=== PATIENT | female | born 1980 | race Caucasian/White ===

== ENCOUNTER 2017-01-19 15:07 | Observation (INO) ==
--- NOTE | 2017-01-19 15:13 | Emergency Department Note ---
Disposition Clinical Impression: Asthma exacerbation Disposition: Admitted As Inpatient Condition: Good General Adult HPI - General Stated complaint: TOREY Asthma Time Seen by Provider: 01/19/17 15:12 - Related Data Home Medications Medication Instructions Recorded Confirmed Sertraline [Zoloft] 50 mg PO HS 01/28/16 01/19/17 Albuterol Sulfate [Proair Hfa] 2 puff IH Q4-6H PRN 05/23/16 01/19/17 ClonazePAM [Klonopin] 0.5 mg PO Q6H PRN 08/08/16 01/19/17 Tiotropium [Spiriva] 18 mcg IH DAILY 08/08/16 01/19/17 Budesonide/Formoterol 160/4.5 2 puff IH BID 01/19/17 01/19/17 [Symbicort 160/4.5] Ipratropium/Albuterol Neb [Duoneb] 3 ml IH Q6HR 01/19/17 01/19/17 Previous Rx's Medication Instructions Recorded PredniSONE 60 mg PO DAILY 5 Days 01/19/17 Allergies Allergy/AdvReac Type Severity Reaction Status Date / Time levofloxacin [From Levaquin] Allergy Anaphylaxis Verified 01/18/17 23:13 Penicillins [PCN] Allergy Anaphylaxis Verified 01/18/17 23:13 Past Medical History - Past Medical History Medical history: Reports: asthma, kidney stones Surgical history: Reports: , cholecystectomy Psychiatric history: Reports: anxiety, depression EXCEL ANALYST history: Reports: no EXCEL ANALYST history, bilateral tubal ligation - Social History Smoking Status: Current every day smoker Smokeless Tobacco Status: No Alcohol use: Reports: none Drug use: Reports: none Course Vital Signs Temperature 99.0 F 01/19/17 15:18 Pulse Rate 122 01/19/17 15:18 Respiratory Rate 24 01/19/17 15:18 Blood Pressure 145/124 01/19/17 15:18 O2 Sat by Pulse Oximetry 98 01/19/17 15:18 Temperature 98.1 F 01/19/17 20:03 Pulse Rate 114 01/19/17 20:03 Respiratory Rate 16 01/19/17 20:03 Blood Pressure 132/84 01/19/17 20:03 O2 Sat by Pulse Oximetry 96 01/19/17 20:03 Oxygen Delivery Oxygen Delivery Nasal Cannula Medical Decision Making - Lab Data Result diagrams: 01/19/17 15:59 01/19/17 15:59 Lab Results 01/19/17 01/19/17 Range/Units 15:59 15:59 WBC 17.3 H (4.3-11.1) K/mcL RBC 5.42 H (3.82-4.97) M/mcL Hgb 14.8 (11.5-15.4) g/dL Hct 43.9 (35.3-44.9) % MCV 81.0 L (83.0-100.0) fL MCH 27.3 L (28.0-33.3) pg MCHC 33.7 (31.6-35.5) g/dL RDW 12.8 (11.5-14.5) % Plt Count 318 (140-400) K/mcL MPV 9.1 L (9.4-12.4) fL Immature Gran % 1.0 (0-4) % Seg Neutrophils % 79.0 % Lymphocytes % 16.9 % Monocytes % 2.9 % Eosinophils % 0.0 % Basophils % 0.2 % Neutrophils # 13.7 H (1.6-8.9) K/mcL Lymphocytes # 2.9 (0.6-4.6) K/mcL Monocytes # 0.5 (0.0-1.3) K/mcL Eosinophils # 0.0 (0.0-0.6) K/mcL Basophils # 0.0 (0.0-0.2) K/mcL Sodium 139 (136-145) mEq/L Potassium 3.9 (3.5-4.5) mEq/L Chloride 106 (98-109) mEq/L Carbon Dioxide 22 (19-29) mEq/L BUN 15 (7-20) mg/dL Creatinine 0.86 (0.57-1.11) mg/dL Est GFR ( Amer) > 60 (> 60) Est GFR (Non-Af Amer) > 60 (> 60) BUN/Creatinine Ratio 17 (6-26) Glucose 202 H (70-99) mg/dL Calculated Osmolality 295 (280-300) Calcium 9.5 (8.6-10.8) mg/dL Attestation Statement - Attestation Attestation: I examined this patient and my medical decision-making was reviewed with the MERCERIZING RANGE CONTROLLER/PA/Advanced Practice Nurse/Resident Physician. I agree with the documented findings, disposition and treatment plan as described except to the extent set forth below. [id number] time provided Patient seen last night for similar symptoms. She states it is "my asthma." Patient presents dyspneic and wheezy. She was able to ambulate to the treatment area. Patient seen and evaluated in conjunction with the resident physician Dr. Hugo
[2017-01-19] MEDS ORDERED: Ipratropium/Albuterol Neb 3 ML ONE ×2 (15:14→15:18)
[2017-01-19] MEDS ORDERED: methylPREDNISolone 125 MG/2 ML VIAL IVP ONE (15:19)
[2017-01-19] MEDS ORDERED: Ipratropium/Albuterol Neb 3 ML IH SCH (15:30)
[2017-01-19 16:10] LABS: Basophils % 0.2 %; Hematocrit 43.9 % (35.3-44.9); Hemoglobin 14.8 g/dL (11.5-15.4); Lymphocytes # 2.9 K/mcL (0.6-4.6); Lymphocytes % 16.9 %; Mean Corpuscular HGB Conc 33.7 g/dL (31.6-35.5); Mean Corpuscular Hemoglobin 27.3 pg (28.0-33.3); Mean Platelet Volume 9.1 fL (9.4-12.4); Monocytes # 0.5 K/mcL (0.0-1.3); Monocytes % 2.9 %; Neutrophils # 13.7 K/mcL (1.6-8.9); Platelet Count 318 K/mcL (140-400); Red Blood Count 5.42 M/mcL (3.82-4.97); Red Cell Distribution Width 12.8 % (11.5-14.5)
[2017-01-19 16:35] LABS: BUN/Creatinine Ratio 17 (6-26); Blood Urea Nitrogen 15 mg/dL (7-20); Calcium 9.5 mg/dL (8.6-10.8); Carbon Dioxide 22 mEq/L (19-29); Chloride 106 mEq/L (98-109); Glucose 202 mg/dL (70-99); Osmolality,Calculated 295 (280-300); Potassium 3.9 mEq/L (3.5-4.5); Sodium 139 mEq/L (136-145); eGFR For African Americans > 60 (> 60); eGFR For Non-African Americans > 60 (> 60)
--- NOTE | 2017-01-19 17:14 | Emergency Department Note ---
Disposition Clinical Impression: Asthma exacerbation Disposition: Admitted As Inpatient Condition: Good Referrals: NO,PCP [Primary Care Provider] - Forms: ED Satisfaction Letter SOB HPI - General Chief Complaint: ED Shortness of Breath/Dyspnea Stated Complaint: TOREY Asthma Time Seen by Provider: 01/19/17 15:12 Source: patient Nursing Notes Reviewed: Yes Vital Signs Reviewed: Yes - History of Present Illness Patient is a bounce back from yesterday where she was treated for asthma exacerbation and discharged from the emergency department. Patient continues to have shortness of breath despite treatment. Patient is a severe asthmatic who uses albuterol, do nebs, Symbicort, Advair at home. Patient has been using albuterol every 4 hours. Patient is on daily steroids at 20 mg and has increase this to 60 mg several days ago. Patient continues to have minimal relief. Patient does continue to smoke. - Related Data Home Medications Medication Instructions Recorded Confirmed Sertraline [Zoloft] 50 mg PO HS 01/28/16 08/08/16 Albuterol Sulfate [Proair Hfa] 2 puff IH Q4-6H PRN 05/23/16 08/08/16 ClonazePAM [Klonopin] 0.5 mg PO Q6H 08/08/16 08/08/16 Tiotropium [Spiriva] 18 mcg IH 0700 08/08/16 08/08/16 Budesonide/Formoterol 160/4.5 2 puff IH BID 01/19/17 01/19/17 [Symbicort 160/4.5] Ipratropium/Albuterol Neb [Duoneb] 3 ml IH Q6HR 01/19/17 01/19/17 Previous Rx's Medication Instructions Recorded PredniSONE 60 mg PO DAILY 5 Days 01/19/17 Allergies Allergy/AdvReac Type Severity Reaction Status Date / Time levofloxacin [From Levaquin] Allergy Anaphylaxis Verified 01/18/17 23:13 Penicillins [PCN] Allergy Anaphylaxis Verified 01/18/17 23:13 All systems ED: reviewed and negative except as stated. Constitutional: Denies: fever, chills Cardiovascular: Reports: dyspnea on exertion. 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 Absent : tenderness - Respiratory Respiratory exam: Present: normal lung sounds bilaterally, respiratory distress , wheezes - Cardiovascular Cardiovascular exam: Present: regular rate, normal rhythm - Abdominal Exam Abdominal exam: Present: soft, Non-Tender - Extremities Exam Extremities exam: Present: normal inspection. Absent: tenderness - Back Exam Back exam: Present: normal inspection. Absent: tenderness - Neurological Exam Neurological exam: Present: alert, oriented X3, CN II-XII intact - Psychiatric Psychiatric exam: Present: normal affect, normal mood - Skin Skin exam: Present: warm Course - Consultations Consultation #1: Discussed with hospitalist Iam. Patient accepted for admission Vital Signs Temperature 99.0 F 01/19/17 15:18 Pulse Rate 122 01/19/17 15:18 Respiratory Rate 24 01/19/17 15:18 Blood Pressure 145/124 01/19/17 15:18 O2 Sat by Pulse Oximetry 98 01/19/17 15:18 Temperature 99.0 F 01/19/17 15:18 Pulse Rate 114 01/19/17 16:50 Respiratory Rate 26 01/19/17 15:50 Blood Pressure 130/66 01/19/17 16:50 O2 Sat by Pulse Oximetry 100 01/19/17 16:50 Oxygen Delivery Oxygen Delivery Room Air Shortness of Breath/Dyspnea - Medical Records Medical records reviewed: Yes I reviewed the patient's medical records. - Lab Data Lab results reviewed: Yes I reviewed the patient's lab results. Result diagrams: 01/19/17 15:59 01/19/17 15:59 Lab Results 01/19/17 01/19/17 Range/Units 15:59 15:59 WBC 17.3 H (4.3-11.1) K/mcL RBC 5.42 H (3.82-4.97) M/mcL Hgb 14.8 (11.5-15.4) g/dL Hct 43.9 (35.3-44.9) % MCV 81.0 L (83.0-100.0) fL MCH 27.3 L (28.0-33.3) pg MCHC 33.7 (31.6-35.5) g/dL RDW 12.8 (11.5-14.5) % Plt Count 318 (140-400) K/mcL MPV 9.1 L (9.4-12.4) fL Immature Gran % 1.0 (0-4) % Seg Neutrophils % 79.0 % Lymphocytes % 16.9 % Monocytes % 2.9 % Eosinophils % 0.0 % Basophils % 0.2 % Neutrophils # 13.7 H (1.6-8.9) K/mcL Lymphocytes # 2.9 (0.6-4.6) K/mcL Monocytes # 0.5 (0.0-1.3) K/mcL Eosinophils # 0.0 (0.0-0.6) K/mcL Basophils # 0.0 (0.0-0.2) K/mcL Sodium 139 (136-145) mEq/L Potassium 3.9 (3.5-4.5) mEq/L Chloride 106 (98-109) mEq/L Carbon Dioxide 22 (19-29) mEq/L BUN 15 (7-20) mg/dL Creatinine 0.86 (0.57-1.11) mg/dL Est GFR ( Amer) > 60 (> 60) Est GFR (Non-Af Amer) > 60 (> 60) BUN/Creatinine Ratio 17 (6-26) Glucose 202 H (70-99) mg/dL Calculated Osmolality 295 (280-300) Calcium 9.5 (8.6-10.8) mg/dL - Radiology Data Radiology results reviewed: Yes I reviewed the patient's radiology results. - EKG Data EKG attestation: Yes I reviewed and interpreted this EKG. EKG results narrative: Patient's EKG shows sinus tachycardia with a rate of 131. Patient has no significant ST elevations or depressions. QRS 89. QTC 400. No previous EKG present for comparison.
[2017-01-19] MEDS ORDERED: Furosemide 40 MG/4 ML VIAL IVP ONE (21:20)
[2017-01-19] MEDS ORDERED: Albuterol 2.5 MG/3 ML NEBULIZER IH PRN (21:22)
[2017-01-19] MEDS ORDERED: clonazePAM 0.5 MG TABLET PO PRN (21:23)
[2017-01-19] MEDS ORDERED: Acetaminophen 325 MG TABLET PO PRN (21:24)
[2017-01-19] MEDS ORDERED: Naloxone 0.4 MG/ML INJ IVP PRN (21:24)
[2017-01-19] MEDS ORDERED: Ondansetron 4 MG/2 ML VIAL IVP PRN (21:24)
--- NOTE | 2017-01-19 21:42 | Internal Med History&Physical ---
Date of Encounter: 01/19/17 Time of Encounter: 20:00 Internal Medicine - H&P: HPI Chief complaint: SOB, x 2 -3 days Admitted From: Emergency Dept Plans for Post Hospital Care: Home History of present illness: Ms. Sweet is a 36 year old female with medical history significant for asthma ( probably COPD, on-going), and morbid obesity present with 2-3 days of progressive shortness of breath, dry cough. She was evaluated in the ER yesterday and discharged home after rounds of bronchodilator treatment and IV solumedrol. She prescribed zithromax and a course of prednisone. Symptoms have not improved. No fever, no rhinorrhea, no chest pain, no sick contacts, no recent travel. No hospitalization for asthma related condition this year. Though her asthma appears mild persistent, she is rarely hospitalized for asthma. No history of endotracheal intubation related to asthma. 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 She reports compliance with her chronic maintenance medications for asthma. She is FULL CODE as per discussion and nominates her mother, Day Clemons ) as her NOK/POA. ROS: A 10-point ROS was performed, positives and relevant negatives are detailed , system-symptom not mentioned are assumed negative unless otherwise stated. PMH: asthma (probably COPD, on-going), and morbid obesity, PSurgical history: Cholecytectomy and cesarian section, bilateral tubal ligation Psychiatry hx: anxiety depression Family History: Father-scleroderma, mother: anxiety, depression Vital Signs Temperature 99.0 F 01/19/17 15:18 Pulse Rate 122 01/19/17 15:18 Respiratory Rate 24 01/19/17 15:18 Blood Pressure 145/124 01/19/17 15:18 O2 Sat by Pulse Oximetry 98 01/19/17 15:18 Temperature 99.0 F 01/19/17 15:18 Pulse Rate 114 01/19/17 16:50 Respiratory Rate 26 01/19/17 15:50 Blood Pressure 130/66 01/19/17 16:50 O2 Sat by Pulse Oximetry 100 01/19/17 16:50 Not in distress Not pale, anicteric afebrile, acyanotic, Speaks in complete senstence, no subcutaneous ephysema Chest: widespread expiratory wheezing, fine bibasilar crackles Heart: Tachycardia, RR, HS1/2 no m/r/g. Abdomen: soft, non-tender, no masses. : No flank tenderness, no CVA TENDER, NO SUPRAPUBIC TENDERNESS. SUBMARINE ADVISORY TEAM WATCH OFFICER: AAO x 3, no gross focal neurological deficits Skin: no active skin lesion Extremities: non-pitting but tense bilaterally, no calf tenderness, normal pedal pulses Lab Results 01/19/17 01/19/17 Range/Units 15:59 15:59 WBC 17.3 H (4.3-11.1) K/mcL RBC 5.42 H (3.82-4.97) M/mcL Hgb 14.8 (11.5-15.4) g/dL Hct 43.9 (35.3-44.9) % MCV 81.0 L (83.0-100.0) fL MCH 27.3 L (28.0-33.3) pg MCHC 33.7 (31.6-35.5) g/dL RDW 12.8 (11.5-14.5) % Plt Count 318 (140-400) K/mcL MPV 9.1 L (9.4-12.4) fL Immature Gran % 1.0 (0-4) % Seg Neutrophils % 79.0 % Lymphocytes % 16.9 % Monocytes % 2.9 % Eosinophils % 0.0 % Basophils % 0.2 % Neutrophils # 13.7 H (1.6-8.9) K/mcL Lymphocytes # 2.9 (0.6-4.6) K/mcL Monocytes # 0.5 (0.0-1.3) K/mcL Eosinophils # 0.0 (0.0-0.6) K/mcL Basophils # 0.0 (0.0-0.2) K/mcL Sodium 139 (136-145) mEq/L Potassium 3.9 (3.5-4.5) mEq/L Chloride 106 (98-109) mEq/L Carbon Dioxide 22 (19-29) mEq/L BUN 15 (7-20) mg/dL Creatinine 0.86 (0.57-1.11) mg/dL Est GFR ( Amer) > 60 (> 60) Est GFR (Non-Af Amer) > 60 (> 60) BUN/Creatinine Ratio 17 (6-26) Glucose 202 H (70-99) mg/dL Calculated Osmolality 295 (280-300) Calcium 9.5 (8.6-10.8) mg/dL CXR: increased interstitial prominence consistent with mild pulmonary edema, borderline cardiomegaly. IMP Acute asthma (failed outpatient treatment) vs. COPD exacerbation vs. acute diastolic heart failure Chronic morbidities Anxiety Depression Obesity Tobacco abuse PLAN Admit Treat in the lines of the above potential diagnoses with bronchodilator, systemic corticosteroid, IV diuresis Obtain 2D ECHO Cycle troponins, check BMP, obtain EKG. Oxygen supplementation Continue medication of chronic morbidities GI/DVT prophylaxis. Smoking cessation discussed. She is now down to 4 cigarette per day, hasn't smoked in 2 days and does not have to urge to smoke now. I will hold nicotine replacement for now. I discussed my assessment with the patient, she verbalized understanding and is agreeable to admission. Admission is necessitated having failed out-patient treatment trial. Past Med Surg Social Fam HX - Past Medical History Medical history: asthma, kidney stones Psychiatric history: anxiety, depression - Past Surgical History Surgical History: , cholecystectomy - Social History Smoking Status: Current every day smoker Smokeless Tobacco Status: No Alcohol use: none Drug use: none - Family History Father Living Status: Age at : 58 Hx Family Cardiac Disorders: Yes Hx Family Respiratory Disorders: No Hx Family Cancer: Yes (bone and breast) Hx Family GI Disorders: Yes Hx Family Genitourinary Disorders: Yes Hx Family Endocrine Disorder: No Hx Family Musculoskeletal Disorders: No Hx Family Neuromuscular Disorders: No Hx Family Neurologic Disorders: No Hx Family HEENT Disorders: No Hx Family Autoimmune Disorders: No Hx Family Reproductive Disorders: No Hx Family Psychosocial Disorders: No Hx Family Medical Disorders: No Internal Medicine - H&P: Meds Sertraline [Zoloft] 50 mg PO HS 01/28/16 [History] Albuterol Sulfate [Proair Hfa] 2 puff IH Q4-6H PRN 05/23/16 [History] ClonazePAM [Klonopin] 0.5 mg PO Q6H PRN 08/08/16 [History] Tiotropium [Spiriva] 18 mcg IH DAILY 08/08/16 [History] Budesonide/Formoterol 160/4.5 [Symbicort 160/4.5] 2 puff IH BID 01/19/17 [ History] Ipratropium/Albuterol Neb [Duoneb] 3 ml IH Q6HR 01/19/17 [History] PredniSONE 60 mg PO DAILY 5 Days 01/19/17 [Rx] Allergies levofloxacin [From Levaquin] Allergy (Verified 01/18/17 23:13) Anaphylaxis Penicillins [PCN] Allergy (Verified 01/18/17 23:13) Anaphylaxis All Systems PM: A 10-system review of systems was performed and is negative for pertinent findings except as documented above in the HPI. - Constitutional Vitals: Temp Pulse Resp BP Pulse Ox 98.1 F 114 16 132/84 96 01/19/17 20:03 01/19/17 20:03 01/19/17 20:03 01/19/17 20:03 01/19/17 20:03 Internal Med - H&P Results - Labs CBC & Chem 7: 01/19/17 15:59 01/19/17 15:59
[2017-01-19] MEDS: Ipratropium/Albuterol Neb 3 ML IH SCH (22:46)
[2017-01-20] MEDS: methylPREDNISolone 125 MG/2 ML VIAL IVP SCH ×2 (00:21→09:10)
[2017-01-20] MEDS: Ipratropium/Albuterol Neb 3 ML IH SCH ×2 (03:47→11:01)
[2017-01-20 05:48] LABS: Alanine Aminotransferase 20 Units/L (0-55); Albumin 3.2 g/dL (3.5-5.0); Albumin/Globulin Ratio 0.8 (1.1-2.2); Alkaline Phosphatase 82 Units/L (38-126); Aspartate Amino Transferase 13 Units/L (5-34); BUN/Creatinine Ratio 21 (6-26); Bilirubin,Total 0.3 mg/dL (0.2-1.2); Blood Urea Nitrogen 20 mg/dL (7-20); Calcium 9.5 mg/dL (8.6-10.8); Carbon Dioxide 23 mEq/L (19-29); Chloride 103 mEq/L (98-109); Globulin 3.9 g/dL (2.4-3.5); Glucose 248 mg/dL (70-99); Osmolality,Calculated 291 (280-300); Potassium 3.8 mEq/L (3.5-4.5); Sodium 135 mEq/L (136-145); Total Protein 7.1 g/dL (6.0-8.3); eGFR For African Americans > 60 (> 60); eGFR For Non-African Americans > 60 (> 60)
[2017-01-20] MEDS ORDERED: Furosemide 20 MG TABLET PO SCH (06:00)
[2017-01-20] MEDS ORDERED: *HR* Enoxaparin 40 MG/0.4 ML SYRINGE SQ SCH (06:00)
[2017-01-20] MEDS ORDERED: Budesonide/Formoterol 160/4.5 MDI IH SCH (10:00)
[2017-01-20 11:13] VITALS: BP 143/88
--- NOTE | 2017-01-20 13:05 | Discharge Summary ---
Date of Encounter: 01/20/17 Time of Encounter: 12:30 - Discharge Medications Prescriptions: Furosemide Oral Soln [Lasix] 40 mg PO DAILY 30 Days Potassium Chloride 20 meq PO DAILY 30 Days Home Medications: Sertraline [Zoloft] 50 mg PO HS 01/28/16 [History] Albuterol Sulfate [Proair Hfa] 2 puff IH Q4-6H PRN 05/23/16 [History] ClonazePAM [Klonopin] 0.5 mg PO Q6H PRN 08/08/16 [History] Tiotropium [Spiriva] 18 mcg IH DAILY 08/08/16 [History] Budesonide/Formoterol 160/4.5 [Symbicort 160/4.5] 2 puff IH BID 01/19/17 [ History] Ipratropium/Albuterol Neb [Duoneb] 3 ml IH Q6HR 01/19/17 [History] PredniSONE 60 mg PO DAILY 5 Days 01/19/17 [Rx] Furosemide Oral Soln [Lasix] 40 mg PO DAILY 30 Days 01/20/17 [Rx] Potassium Chloride 20 meq PO DAILY 30 Days 01/20/17 [Rx] Allergies/Adverse Reactions: Allergies levofloxacin [From Levaquin] Allergy (Verified 01/18/17 23:13) Anaphylaxis Penicillins [PCN] Allergy (Verified 01/18/17 23:13) Anaphylaxis Procedures/tests Complete & Pending: Procedures Performed prior 72 hours Category Date Time Status NM pul vent and perfuse [NM] Routine Exams 01/19/17 23:07 Completed Date of admission: 01/19/17 21:34 Primary care physician: PCP NO - Patient Status Disposition: Home, Self-Care Condition: Good Overall status at discharge: patient is progressing back to baseline - Ambulatory Orders Ambulatory Orders: EV echocardiogram Time Frame: 1 Week, Facility: [facility], Location: Cardiopulmonary Svc - Discharge Instructions Follow Up With: NO,PCP [Primary Care Provider] - Forms: ED Satisfaction Letter Additional Instructions: F/u up at heart failure clinic. - Diet and Activity Activity: increase activity as tolerated, resume usual activities as tolerated Diet: low fat, low cholesterol, low salt diet Hospital course: Ms. Sweet is a 36 year old female - Time Spent with Patient Total time spent providing and/or coordinating discharge services: - Constitutional Vitals: Temp Pulse Resp BP Pulse Ox 98.0 F 95 18 143/88 94 L 01/20/17 11:12 01/20/17 11:12 01/20/17 11:12 01/20/17 11:12 01/20/17 11:12
[2017-01-20] MEDS ORDERED: Perflutren Lipid Microsphere 1.3 ML in 0.9 % Sodium Chloride 8.7 ML IVP ONE (14:22)
--- NOTE | 2017-01-20 15:05 | ECHO - Doppler Report ---
Echo with Imaging Enhancement Agent Name: Valerie Sweet Date of Study: 01/20/2017 Date: 1980 Ht: 65.0 in Medical Record#: [id number] Age: 36 Wt: 332.0 lb Gender: Female BSA: 2.45 Order #: [id number] Location: [facility] Room #: 3A48 Reading Physician: Carlos Alberto Mayers DO, MARYANA, SUYAPA KELLOGG Supervisor Paint Department: Aurora Campos Ordering Physician: Tony Macias MD Primary Physician: None Indications: Shortness of breath Impressions: Technically sub-optimal due to body habitus. LVEF 65-70%. Normal LV chamber sizes and function. Mild concentric left ventricular hypertrophy. Mild left ventricular diastolic dysfunction. Right ventricle was not well visualized. Grossly, it demonstrates normal function. No evidence of pulmonary hypertension identified. RVSP was not well obtained. No obvious significant valvular dysfunction. Left Ventricular Wall Motion: Rest Echo Findings All wall segments showed normal motion. Findings: Study Quality * Technically sub-optimal due to body habitus. ECG Findings * Normal sinus rhythm. Left Ventricle * LVEF 65-70%. * Normal LV chamber sizes and function. * Mild concentric left ventricular hypertrophy. * Mild left ventricular diastolic dysfunction. Right Ventricle * Right ventricle was not well visualized. Grossly, it demonstrates normal function. Left Atrium * Mildly dilated left atrium. Right Atrium * Mildly dilated right atrium. Interatrial Septum * Interatrial septum not well evaluated. Aortic Valve * Aortic valve not well visualized. * No aortic stenosis. * No aortic regurgitation. Mitral Valve * Normal mitral valve structure and function. * No mitral regurgitation. * No mitral stenosis. Tricuspid Valve * Normal tricuspid valve structure and function. * Trace tricuspid regurgitation. * No evidence of pulmonary hypertension identified. RVSP was not well obtained. Pulmonic Valve * Pulmonic valve not well visualized. * No pulmonic regurgitation. Aorta * Normally sized aortic root. Pericardium * The pericardium appears normal. IVC * The IVC is not well evaluated. Pulmonary Artery * Pulmonary artery not well visualized. History History of Smoking Years 3 Packs 0.5 Family History of CAD Measurements: BP: 148/ 88 2D Normal Values RVIDd: 3.00 cm <2.7 cm IVSd: 1.30 cm 0.6 - 1.0 cm LVIDd: 4.20 cm 3.7 - 5.6 cm LVPWd: 1.30 cm 0.6 - 1.1 cm LVIDs: 3.00 cm 1.5 - 3.6 cm AO: 2.80 cm < 4.0 cm LA: 3.90 cm 2.0 - 4.0cm %FS: 28.60 cm >25 % LA volume: 35 Mitral Valve Peak E:1.30 m/sec Peak A:1.35 m/sec E/A Ratio:1 Peak E' Lat Charlie:4.78 cm/s Peak E' Med Charlie:7.02 cm/s E/E' Lat Ratio:27.2 E/E' Med Ratio:18.5 Tricuspid Valve TV Regurg Peak Grad: 14.00mmHg TV Regurg Peak Charlie: 1.87m/sec Updated by Carlos Alberto Mayers DO, FACTegan, BESS, SUYAPA on 01/20/2017 3:02:06 PM electronically signed on 01/20/2017 3:02:39 PM with status of Final Wall Motion Juárez: 1=Normal, 2=Hypokinesis, 3=Akinesis, 4=Dyskinesis, 5=Aneurysmal, 6=Hyperkinetic, X=Not Visualized (Blank)=Missing
--- NOTE | 2017-01-20 15:35 | Electrocardiograph Report ---
[address] [address] Test Date: 2017-01-19 Pat Name: Valerie Sweet Department: 103 Room: 3A48 Gender: F Rn Practitioner: : 1980 Requested By: Pedrito Hugo Order Number: [id number] Reading MD: Vinod Pierson MD Measurements Intervals [place] Rate: 131 P: 58 CT: 139 QRS: 73 QRSD: 89 T: 39 QT: 323 QTc: 400 Interpretive Statements SINUS TACHYCARDIA Electronically Signed On 01-20-2017 15:34:18 EDT by Vinod Pierson MD
== END 2017-01-20 15:07 | disposition home or self-care (01) ==
LOC: 3ANU 15:07 → EMEROO 15:07 → 3ANU 18:20
PROVIDERS: ADMIT Nurse Practitioner Acute Care; ATTEND Family Medicine

== ENCOUNTER 2017-08-14 09:18 | Inpatient (IN) ==
[2017-08-14] MEDS ORDERED: Ipratropium/Albuterol Neb 3 ML IH ONE (09:41)
[2017-08-14] MEDS ORDERED: methylPREDNISolone 125 MG/2 ML VIAL IVP ONE (09:41)
--- NOTE | 2017-08-14 09:50 | Emergency Department Note ---
Disposition Clinical Impression: Asthma exacerbation Qualifiers: Asthma severity: unspecified severity Asthma persistence: unspecified Qualified Code(s): J45.901 - Unspecified asthma with (acute) exacerbation Disposition: Admitted As Inpatient Condition: Good SOB HPI - General Chief Complaint: ED Shortness of Breath/Dyspnea Stated Complaint: asthma attack Time Seen by Provider: 08/14/17 09:40 Source: patient Mode of arrival: private vehicle Limitations: no limitations Nursing Notes Reviewed: Yes Vital Signs Reviewed: Yes - History of Present Illness 37-year-old female history of asthma who presents to the ER with a chief complaint of shortness of breath and cough. Patient states that she was seen here a few days ago and was placed on steroids. Reports that she has been using her nebulizer treatment at home. States that she has continued to have a cough and felt short of breath despite taking the steroids. She reports prior hospitalizations for her asthma. No history of intubation. She does not wear oxygen at home. Denies a history of CAD, DVT or PE. States that she used a nebulizer treatment prior to arrival without relief. Currently denies fevers, chest pain, nausea, vomiting, diarrhea, sore throat, runny nose. No other complaints. Pt Subjective Complaint: shortness of breath, cough Onset (ago): day(s) Context: recent illness Severity: moderate Consistency/Duration: constant Improves with: nothing Worsens with: nothing Known history of: asthma Associated symptoms: Reports: cough, wheezing. Denies: chest pain, fever, sputum production Treatment prior to arrival: bronchodilator Cough present: Yes Cough Description: Involuntary Cough Frequency: Intermittent Sputum production: No Sputum Amount: None - Related Data Home oxygen amount: none Home Medications Medication Instructions Recorded Confirmed Sertraline [Zoloft] 50 mg PO HS 01/28/16 08/14/17 Albuterol Sulfate [Proair Hfa] 2 puff IH Q4-6H PRN 05/23/16 08/14/17 Tiotropium [Spiriva] 18 mcg IH DAILY 08/08/16 08/14/17 clonazePAM [Klonopin] 0.5 mg PO TID 08/08/16 08/14/17 Albuterol Neb [Proventil Neb] 2.5 mg IH TID 08/14/17 08/14/17 Furosemide [Lasix] 40 mg PO DAILY 08/14/17 08/14/17 Ipratropium Neb [Atrovent Neb] 0.5 mg IH QID PRN 08/14/17 08/14/17 Mometasone/Formoterol [Dulera 200 2 puff IH BID 08/14/17 08/14/17 Mcg/5 Mcg Inhaler] Montelukast [Singulair] 10 mg PO QPM 08/14/17 08/14/17 Previous Rx's Medication Instructions Recorded Potassium Chloride 20 meq PO DAILY 30 Days tab.er.prt 01/20/17 Allergies Allergy/AdvReac Type Severity Reaction Status Date / Time levofloxacin [From Levaquin] Allergy Anaphylaxis Verified 08/14/17 09:20 Penicillins [PCN] Allergy Anaphylaxis Verified 08/14/17 09:20 All systems ED: reviewed and negative except as stated. Constitutional: Denies: fever, chills Cardiovascular: Denies: chest pain Respiratory: Reports: cough, dyspnea, wheezes Gastrointestinal: Denies: abdominal pain, nausea, vomiting, diarrhea Past Medical History - Past Medical History Attestation: Yes The following information was validated with the patient. Source: patient Medical history: Reports: asthma, kidney stones Surgical history: Reports: , cholecystectomy Psychiatric history: Reports: anxiety, depression TRIMMING CASER history: Reports: no TRIMMING CASER history, bilateral tubal ligation - Social History Smoking Status: Current every day smoker Smokeless Tobacco Status: No Alcohol use: Reports: none Drug use: Reports: none Physical Exam - General Limitations: no limitations General appearance: alert, anxious - Head Head exam: atraumatic, normocephalic, normal inspection - Eye Eye exam: Present: normal appearance, EOMI - ENT ENT exam: normal exam - Neck Neck exam: Present: normal inspection, full ROM - Chest Chest inspection: Present: normal inspection, symmetric chest wall rise - Respiratory Respiratory exam: Present: wheezes, accessory muscle use, prolonged expiratory phase. Absent: stridor - Cardiovascular Cardiovascular exam: Present: normal rhythm, tachycardia, normal heart sounds - Abdominal Exam Abdominal exam: Present: soft, Non-Tender. Absent: tenderness, distention, rigidity - Extremities Exam Extremities exam: Present: normal inspection, full ROM - Expanded Upper Extremity Exam Shoulder exam: Present: normal inspection, full ROM Arm exam: Present: normal inspection, full ROM Elbow exam: Present: normal inspection, full ROM Forearm/Wrist exam: Present: normal inspection, full ROM Hand exam: Present: normal inspection, full ROM Vascular exam: Normal: radial pulse - Expanded Lower Extremity Exam Hip/Pelvis exam: Present: normal inspection, full ROM Upper leg exam: Present: normal inspection, full ROM Knee exam: Present: normal inspection, full ROM Lower leg exam: Present: normal inspection, full ROM Ankle exam: Present: normal inspection, full ROM Foot/toe exam: Present: normal inspection, full ROM Neurovascular/Tendon exam: Absent: motor deficit, sensory deficit - Neurological Exam Neurological exam: Present: alert, other (GCS 15. Nonfocal neurologic exam. Moves all extremities equally.) - Psychiatric Psychiatric exam: Present: normal affect, normal mood - Skin Skin exam: Present: warm, dry, intact, normal color Course Course Narrative: Patient seen and examined. She is not hypoxic here however she is somewhat conversationally dyspneic. We will obtain an EKG, chest x-ray as well as labs. We will give her a triple DuoNeb treatment and IV Solu-Medrol and reassess. - Reevaluation(s) Reevaluation #1: Patient continues to have wheezing and is in the low 90s after DuoNeb treatment. We will order a round of albuterol and IV magnesium. Patient agrees with thing in the hospital. Vital Signs Temperature 98.0 F 08/14/17 09:22 Pulse Rate 118 08/14/17 09:22 Respiratory Rate 36 08/14/17 09:22 Blood Pressure 148/78 08/14/17 09:22 O2 Sat by Pulse Oximetry 90 08/14/17 09:22 Temperature 98.0 F 08/14/17 09:22 Pulse Rate 94 08/14/17 12:00 Respiratory Rate 16 08/14/17 12:02 Blood Pressure 129/79 08/14/17 12:00 O2 Sat by Pulse Oximetry 92 08/14/17 12:02 Oxygen Delivery Oxygen Delivery Aerosol Mask Shortness of Breath/Dyspnea - MDM Narrative Medical decision making narrative: 37-year-old female presents to the ER due to shortness of breath and cough. History of asthma with recent visit for same. She spelled outpatient therapy with prednisone. Her sats were in the low 90s here. She has persistence of wheezing despite multiple DuoNeb treatments and albuterol. Chest x-ray demonstrates no acute findings. EKG is sinus tachycardia. White count slightly elevated at 13 likely secondary to stress response and steroids. Patient given IV magnesium for exacerbation and admitted to the hospitalist service. - Differential Diagnosis Likely: pneumonia, asthma with exacerbation - Lab Data Lab results reviewed: Yes I reviewed the patient's lab results. Result diagrams: 08/14/17 09:48 08/14/17 09:48 Lab Results 08/14/17 08/14/17 08/14/17 Range/Units 09:48 09:48 09:48 WBC 13.2 H (4.3-11.1) K/mcL RBC 5.48 H (3.82-4.97) M/mcL Hgb 15.2 (11.5-15.4) g/dL Hct 44.6 (35.3-44.9) % MCV 81.4 L (83.0-100.0) fL MCH 27.7 L (28.0-33.3) pg MCHC 34.1 (31.6-35.5) g/dL RDW 13.1 (11.5-14.5) % Plt Count 310 (140-400) K/mcL MPV 9.5 (9.4-12.4) fL Immature Gran % 1.2 (0-4) % Seg Neutrophils % 66.6 % Lymphocytes % 24.8 % Monocytes % 4.6 % Eosinophils % 2.2 % Basophils % 0.6 % Neutrophils # 8.8 (1.6-8.9) K/mcL Lymphocytes # 3.3 (0.6-4.6) K/mcL Monocytes # 0.6 (0.0-1.3) K/mcL Eosinophils # 0.3 (0.0-0.6) K/mcL Basophils # 0.1 (0.0-0.2) K/mcL Immature Plt Fraction 1.6 (1.1-6.1) % Sodium 137 (136-145) mEq/L Potassium 4.3 (3.5-4.5) mEq/L Chloride 110 H (98-109) mEq/L Carbon Dioxide 18 L (19-29) mEq/L BUN 17 (7-20) mg/dL Creatinine 0.81 (0.57-1.11) mg/dL Est GFR ( Amer) > 60 (> 60) Est GFR (Non-Af Amer) > 60 (> 60) BUN/Creatinine Ratio 21 (6-26) Glucose 119 H (70-99) mg/dL Calculated Osmolality 287 (280-300) Calcium 9.0 (8.6-10.8) mg/dL Troponin I 0.00 (0-0.03) ng/mL B-Natriuretic Peptide (0-100) pg/mL 08/14/17 Range/Units 09:48 WBC (4.3-11.1) K/mcL RBC (3.82-4.97) M/mcL Hgb (11.5-15.4) g/dL Hct (35.3-44.9) % MCV (83.0-100.0) fL MCH (28.0-33.3) pg MCHC (31.6-35.5) g/dL RDW (11.5-14.5) % Plt Count (140-400) K/mcL MPV (9.4-12.4) fL Immature Gran % (0-4) % Seg Neutrophils % % Lymphocytes % % Monocytes % % Eosinophils % % Basophils % % Neutrophils # (1.6-8.9) K/mcL Lymphocytes # (0.6-4.6) K/mcL Monocytes # (0.0-1.3) K/mcL Eosinophils # (0.0-0.6) K/mcL Basophils # (0.0-0.2) K/mcL Immature Plt Fraction (1.1-6.1) % Sodium (136-145) mEq/L Potassium (3.5-4.5) mEq/L Chloride (98-109) mEq/L Carbon Dioxide (19-29) mEq/L BUN (7-20) mg/dL Creatinine (0.57-1.11) mg/dL Est GFR ( Amer) (> 60) Est GFR (Non-Af Amer) (> 60) BUN/Creatinine Ratio (6-26) Glucose (70-99) mg/dL Calculated Osmolality (280-300) Calcium (8.6-10.8) mg/dL Troponin I (0-0.03) ng/mL B-Natriuretic Peptide < 10 (0-100) pg/mL - Radiology Data Radiology results reviewed: Yes I reviewed the patient's radiology results. Chest X-Ray 08/14/17 09:41 IMPRESSION: No acute cardiopulmonary process. D/ / Kassie Ellis MD / Kassie Ellis MD Interpreting Provider: Kassie Ellis MD - EKG Data EKG attestation: Yes I reviewed and interpreted this EKG. EKG results narrative: EKG demonstrates sinus tachycardia with a rate of 107. Normal axis. Normal intervals. Normal R-wave progression. No gross ST elevations or depressions. No acute ischemic findings. S.Rex - Tj Situation: Demographics, MOA Background: Presenting Complaint, Relevant PMH, Meds, & Allergies Assessment: Vital Signs, Course and respsone to treatment, Exam Concerns, Patient/Family Expectation, Pertinant Lab Results, Outstanding Labs Recommendation: Barrier(s) to disposition, Recommendation based on pending studies, treatments, or consults SRalph Report Given to: Dr. Hany Spencer Repor Time: 12:54 Attestation Statement - Attestation Attestation: I examined this patient and my medical decision-making was reviewed with the Resident Physician, Dr. Chung. I agree with the documented findings, disposition and treatment plan as described except to the extent set forth below. Patient is a 37-year-old white female who presents to the emergency department with worsening shortness of breath and wheezing with a history of asthma. Patient has been hospitalized in the past but no prior intubations. Patient states she was seen here a few days ago with an asthma exacerbation and improved after aerosols and steroids and was sent home on steroids to continue. Patient has been using her nebulizer at home and continuing steroids but having no improvement. Patient feels her breathing is worse in the last 24-48 hours and came in for evaluation. Patient was having conversational dyspnea increased work of breathing and audible wheezing at bedside. Patient was tachycardic and hypoxic on room air on my assessment. I agree with patient's physical findings as documented. Patient had an IV saline well-established placed on special machine operator and continuous pulse ox. Patient given steroids and breathing treatments on arrival with no improvement. Chest x-ray is unremarkable labs show mild elevation in white count likely due to stress response. He should with sinus tachycardia on EKG with no acute ST or T-wave changes. At this time due to no improvement clinically and hypoxia we will admit the patient for an exacerbation of her asthma. Case was discussed with the hospitalist to agree with admission. Patient was given additional DuoNeb and IV magnesium here in the emergency department.
[2017-08-14 10:11] LABS: BUN/Creatinine Ratio 21 (6-26); Blood Urea Nitrogen 17 mg/dL (7-20); Carbon Dioxide 18 mEq/L (19-29); Chloride 110 mEq/L (98-109); Glucose 119 mg/dL (70-99); Osmolality,Calculated 287 (280-300); Potassium 4.3 mEq/L (3.5-4.5); Sodium 137 mEq/L (136-145); eGFR For African Americans > 60 (> 60); eGFR For Non-African Americans > 60 (> 60)
[2017-08-14 10:24] LABS: Basophils # 0.1 K/mcL (0.0-0.2); Basophils % 0.6 %; Eosinophils # 0.3 K/mcL (0.0-0.6); Eosinophils % 2.2 %; Hematocrit 44.6 % (35.3-44.9); Hemoglobin 15.2 g/dL (11.5-15.4); Immature Granulocytes % 1.2 % (0-4); Immature Platelets 1.6 % (1.1-6.1); Lymphocytes # 3.3 K/mcL (0.6-4.6); Lymphocytes % 24.8 %; Mean Corpuscular HGB Conc 34.1 g/dL (31.6-35.5); Mean Corpuscular Hemoglobin 27.7 pg (28.0-33.3); Mean Corpuscular Volume 81.4 fL (83.0-100.0); Mean Platelet Volume 9.5 fL (9.4-12.4); Monocytes # 0.6 K/mcL (0.0-1.3); Monocytes % 4.6 %; Neutrophils # 8.8 K/mcL (1.6-8.9); Platelet Count 310 K/mcL (140-400); Red Blood Count 5.48 M/mcL (3.82-4.97); Red Cell Distribution Width 13.1 % (11.5-14.5); Segmented Neutrophils % 66.6 %
[2017-08-14] MEDS ORDERED: Albuterol 2.5 MG/3 ML NEBULIZER IH ONE (11:52)
[2017-08-14] MEDS ORDERED: Naloxone 0.4 MG/ML INJ IVP PRN (13:21)
[2017-08-14] MEDS ORDERED: Albuterol 2.5 MG/3 ML NEBULIZER IH PRN (13:24)
--- NOTE | 2017-08-14 13:35 | Event Note ---
Date of Encounter: 08/14/17 Time of Encounter: 13:34 Patient and examined with nurse practitioner. Acute asthma exacerbation. Failed outpatient therapy with oral steroids 5 days of 60 mg daily prednisone. With admitted to hospital for IV steroids frequent nebulizer treatment. She is full code. Never been intubated before
[2017-08-14] MEDS ORDERED: Nicotine 2 MG GUM BC PRN (13:42)
--- NOTE | 2017-08-14 14:07 | Internal Med History&Physical ---
Date of Encounter: 08/14/17 Time of Encounter: 13:44 Assessment and Plan (1) Asthma exacerbation Current visit: Yes Status: Acute Patient with asthma exacerbation, continuing to wheeze and have shortness of breath despite steroids and nebulizer treatments as an outpatient. Solumedrol 125mg IVP given in ED, continue with 40mg IVP TID duoneb treatments QID, albuterol nebulizer Q2hr PRN Continue home doses of other asthma medications. titrate oxygen to maintain saturation Azithormycin IVPB daily. Qualifiers: Asthma severity: severe Asthma persistence: persistent Qualified Code(s) : J45.51 - Severe persistent asthma with (acute) exacerbation (2) Obesity, morbid (more than 100 lbs over ideal weight or BMI > 40) Current visit: Yes Status: Chronic Patient educated on lifestyle modifications. (3) Tobacco abuse Current visit: Yes Status: Chronic Patient strongly encouraged to quit smoking. Nicotine gum PRN and smoking cessation education ordered. (4) DVT prophylaxis Current visit: Yes Status: Acute Lovenox SQ daily Internal Medicine - H&P: HPI Chief complaint: shortness of breath Admitted From: Emergency Dept Plans for Post Hospital Care: Home History of present illness: Ms. Sweet is a 37 year old female with asthma, anxiety and CHF presented to the ED today with complaints of worsening shortness of breath and wheezing. Patient reports this has been going on for a week and worsening, despite a visit to the ED 5 days ago and treatment with prednisone and nebulizers. She reports occasional lightheadedness and dry cough. She denies any chest pain, headache, palpitations, fever, chills or sweats. Evaluation in the ED included a CXR which showed no acute cardiopulmonary process. WBC count elevated at 13.2 , but patient has been on oral steroids. Other labwork grossly normal. She was given 125mg of IVP solu medrol, duoneb treatments and magnesium. On exam, patient alert and oriented, in no distress. She was not hypoxic, but was conversationally dyspnic. Lungs with significant wheezing and rhonchi bilaterally. Heart with regular but tachycardic rhythm. No peripheral edema. Past Med Surg Social Fam HX - Past Medical History Medical history: asthma, kidney stones Psychiatric history: anxiety, depression - Past Surgical History Surgical History: , cholecystectomy - Social History Smoking Status: Current every day smoker Smokeless Tobacco Status: No Alcohol use: none Drug use: none - Family History Father Living Status: Hx Family Cardiac Disorders: Yes Hx Family Respiratory Disorders: No Hx Family Cancer: Yes (bone and breast) Hx Family GI Disorders: Yes Hx Family Endocrine Disorder: No Hx Family Neuromuscular Disorders: No Hx Family Neurologic Disorders: No Hx Family HEENT Disorders: No Hx Family Autoimmune Disorders: No Internal Medicine - H&P: Meds Sertraline [Zoloft] 50 mg PO HS 01/28/16 [History] Albuterol Sulfate [Proair Hfa] 2 puff IH Q4-6H PRN 05/23/16 [History] Tiotropium [Spiriva] 18 mcg IH DAILY 08/08/16 [History] clonazePAM [Klonopin] 0.5 mg PO TID 08/08/16 [History] Potassium Chloride 20 meq PO DAILY 30 Days tab.er.prt 01/20/17 [Rx] Albuterol Neb [Proventil Neb] 2.5 mg IH TID 08/14/17 [History] Furosemide [Lasix] 40 mg PO DAILY 08/14/17 [History] Ipratropium Neb [Atrovent Neb] 0.5 mg IH QID PRN 08/14/17 [History] Mometasone/Formoterol [Dulera 200 Mcg/5 Mcg Inhaler] 2 puff IH BID 08/14/17 [ History] Montelukast [Singulair] 10 mg PO QPM 08/14/17 [History] 3 Allergy/AdvReac Type Severity Reaction Status Date / Time levofloxacin [From Levaquin] Allergy Anaphylaxis Verified 08/14/17 09:20 Penicillins [PCN] Allergy Anaphylaxis Verified 08/14/17 09:20 All Systems PM: A 10-system review of systems was performed and is negative for pertinent findings except as documented above in the HPI. - Constitutional Constitutional: no chills, no fever(s), no night sweats - EENT Eyes: no change in vision, no discharge, no pain, no photophobia Ears: no ear discharge, no ear pain, no tinnitus Nose, mouth and throat: no dysphagia, no nasal discharge, no neck pain, no sore throat - Cardiovascular Cardiovascular ROS IM: dyspnea, dyspnea on exertion, no chest pain, no diaphoresis, no lightheadedness, no palpitations, no syncope - Respiratory Respiratory: cough, dyspnea, dyspnea on exertion, wheezing, no excessive phlegm production - Gastrointestinal Gastrointestinal: no abdominal pain, no diarrhea, no hematemesis, no hematochezia, no melena, no nausea, no vomiting - Genitourinary Genitourinary: no change in urinary stream, no dysuria, no flank pain, no hematuria - Musculoskeletal Musculoskeletal ROS IM: no numbness, no tingling - Integumentary Integumentary IM: no rash, no unusual bruising - Neurological Neurological ROS: no confusion, no convulsions, no focal weakness, no numbness, no tingling, no tremor(s) - Hematologic/Lymphatic Hematologic/Lymphatic: no easy bruising - Constitutional Vitals: Temp Pulse Resp BP Pulse Ox 98.0 F 94 16 129/79 92 08/14/17 09:22 08/14/17 12:00 08/14/17 12:02 08/14/17 12:00 08/14/17 12:02 General appearance: Present: A&O X 3, morbidly obese, pleasant - Head Head exam: Present: atraumatic, normocephalic - Eye Eye exam: Present: PERRL, conjuntiva pink, sclera anicteric Pupils: Present: PERRL - Neck Neck exam general surgery: Present: supple, trachea midline. Absent: lymphadenopathy - Respiratory Respiratory exam: Present: rhonchi, wheezes, tachypnea. Absent: accessory muscle use, rales - Cardiovascular Cardiovascular exam: Present: RRR, +S1, +S2, tachycardia. Absent: diastolic murmur, gallop, rubs, systolic murmur - GI/Abdominal GI/Abdominal exam: Present: normal bowel sounds, soft, no peritoneal signs. Absent: distended, tenderness - Extremities Exam Extremities exam: Present: warm, radial pulses palpable and symmetrical. Absent : calf tenderness, cyanotic, pedal edema - Neurological Exam Neurological exam: Present: CN II-XII intact, oriented X3, no focal deficits. Absent: pronater drift, facial droop, speech deficit - Skin Skin exam: Present: dry, intact Internal Med - H&P Results - Labs CBC & Chem 7: 08/14/17 09:48 08/14/17 09:48 Labs: All Lab Results (24 Hours) 08/14/17 08/14/1708/14/17 Range/Units 09:48 09:48 09:48 WBC 13.2 H (4.3-11.1) K/mcL RBC 5.48 H (3.82-4.97) M/mcL Hgb 15.2 (11.5-15.4) g/dL Hct 44.6 (35.3-44.9) % MCV 81.4 L (83.0-100.0) fL MCH 27.7 L (28.0-33.3) pg MCHC 34.1 (31.6-35.5) g/dL RDW 13.1 (11.5-14.5) % Plt Count 310 (140-400) K/mcL MPV 9.5 (9.4-12.4) fL Immature Gran % 1.2 (0-4) % Seg Neutrophils % 66.6 % Lymphocytes % 24.8 % Monocytes % 4.6 % Eosinophils % 2.2 % Basophils % 0.6 % Neutrophils # 8.8 (1.6-8.9) K/mcL Lymphocytes # 3.3 (0.6-4.6) K/mcL Monocytes # 0.6 (0.0-1.3) K/mcL Eosinophils # 0.3 (0.0-0.6) K/mcL Basophils # 0.1 (0.0-0.2) K/mcL Immature Plt Fraction 1.6 (1.1-6.1) % Sodium 137 (136-145) mEq/L Potassium 4.3 (3.5-4.5) mEq/L Chloride 110 H (98-109) mEq/L Carbon Dioxide 18 L (19-29) mEq/L BUN 17 (7-20) mg/dL Creatinine 0.81 (0.57-1.11) mg/dL Est GFR ( Amer) > 60 (> 60) Est GFR (Non-Af Amer) > 60 (> 60) BUN/Creatinine Ratio 21 (6-26) Glucose 119 H (70-99) mg/dL Calculated Osmolality 287 (280-300) Calcium 9.0 (8.6-10.8) mg/dL Troponin I 0.00 (0-0.03) ng/mL B-Natriuretic Peptide (0-100) pg/mL 10/05/17 Range/Units 09:48 WBC (4.3-11.1) K/mcL RBC (3.82-4.97) M/mcL Hgb (11.5-15.4) g/dL Hct (35.3-44.9) % MCV (83.0-100.0) fL MCH (28.0-33.3) pg MCHC (31.6-35.5) g/dL RDW (11.5-14.5) % Plt Count (140-400) K/mcL MPV (9.4-12.4) fL Immature Gran % (0-4) % Seg Neutrophils % % Lymphocytes % % Monocytes % % Eosinophils % % Basophils % % Neutrophils # (1.6-8.9) K/mcL Lymphocytes # (0.6-4.6) K/mcL Monocytes # (0.0-1.3) K/mcL Eosinophils # (0.0-0.6) K/mcL Basophils # (0.0-0.2) K/mcL Immature Plt Fraction (1.1-6.1) % Sodium (136-145) mEq/L Potassium (3.5-4.5) mEq/L Chloride (98-109) mEq/L Carbon Dioxide (19-29) mEq/L BUN (7-20) mg/dL Creatinine (0.57-1.11) mg/dL Est GFR ( Amer) (> 60) Est GFR (Non-Af Amer) (> 60) BUN/Creatinine Ratio (6-26) Glucose (70-99) mg/dL Calculated Osmolality (280-300) Calcium (8.6-10.8) mg/dL Troponin I (0-0.03) ng/mL B-Natriuretic Peptide < 10 (0-100) pg/mL - Diagnostic Studies Chest x-ray Additional comments: Chest X-Ray 08/14/17 09:41 IMPRESSION: No acute cardiopulmonary process. D/ / 08/14/2017 11:13:27 Kassie Ellis MD / [facility] Interpreting Provider: Kassie Ellis MD
[2017-08-14] MEDS: Azithromycin 500 MG in D5% in Water 250 ML IVPB SCH (14:18)
[2017-08-14] MEDS: clonazePAM 0.5 MG TABLET PO SCH ×2 (14:18→21:19)
[2017-08-14] MEDS: Ipratropium/Albuterol Neb 3 ML IH SCH ×4 (15:28→23:07)
[2017-08-14] MEDS ORDERED: MethylPREDNISolone 40 MG/ML VIAL IVP SCH (16:00)
[2017-08-14] MEDS ORDERED: Ipratropium/Albuterol Neb 3 ML IH SCH (17:00)
[2017-08-14] MEDS: Budesonide/Formoterol 160/4.5 MDI IH SCH (19:53)
[2017-08-15] MEDS: MethylPREDNISolone 40 MG/ML VIAL IVP SCH ×3 (00:01→20:00)
[2017-08-15 02:15] LABS: Basophils % 0.1 %; Hematocrit 41.8 % (35.3-44.9); Immature Granulocytes % 0.9 % (0-4); Lymphocytes # 1.2 K/mcL (0.6-4.6); Lymphocytes % 6.6 %; Mean Corpuscular HGB Conc 33.5 g/dL (31.6-35.5); Mean Corpuscular Hemoglobin 27.9 pg (28.0-33.3); Mean Corpuscular Volume 83.4 fL (83.0-100.0); Monocytes # 0.2 K/mcL (0.0-1.3); Monocytes % 1.1 %; Neutrophils # 15.9 K/mcL (1.6-8.9); Platelet Count 254 K/mcL (140-400); Red Blood Count 5.01 M/mcL (3.82-4.97); Red Cell Distribution Width 13.1 % (11.5-14.5); Segmented Neutrophils % 91.3 %
[2017-08-15 02:28] LABS: BUN/Creatinine Ratio 20 (6-26); Blood Urea Nitrogen 21 mg/dL (7-20); Calcium 9.1 mg/dL (8.6-10.8); Carbon Dioxide 21 mEq/L (19-29); Chloride 108 mEq/L (98-109); Glucose 290 mg/dL (70-99); Magnesium 2.6 mg/dL (1.6-2.6); Osmolality,Calculated 296 (280-300); Potassium 4.5 mEq/L (3.5-4.5); Sodium 136 mEq/L (136-145); eGFR For African Americans > 60 (> 60); eGFR For Non-African Americans 59 (> 60)
[2017-08-15] MEDS: Ipratropium/Albuterol Neb 3 ML IH SCH ×6 (03:39→23:54)
[2017-08-15] MEDS: *HR* Enoxaparin 40 MG/0.4 ML SYRINGE SQ SCH (06:02)
[2017-08-15] MEDS: Budesonide/Formoterol 160/4.5 MDI IH SCH ×2 (08:01→19:49)
[2017-08-15] MEDS: clonazePAM 0.5 MG TABLET PO SCH ×3 (08:46→20:38)
[2017-08-15] MEDS: Acetaminophen 325 MG TABLET PO PRN (08:46)
[2017-08-15] MEDS: Furosemide 40 MG TABLET PO SCH (08:46)
[2017-08-15] MEDS ORDERED: Tiotropium 18 MCG inhalation IH SCH (09:00)
--- NOTE | 2017-08-15 12:40 | Internal Med Progress Note ---
Date of Encounter: 08/15/17 Time of Encounter: 13:02 - Assessment and plan (1) Acute asthma exacerbation Current Visit: No Status: Acute Assessment and plan: Valerie Sweet is a 37 y/o female with PMH morbid obesity and asthma who presented to [facility] on 08/14/2017 with complaints of SOB. She was found to be in an asthma exacerbation and was admitted for IV steroids. 1. Asthma exacerbation: has known asthma. Presented to ED with worsening shortness of breath and wheezing for 1 week prior to admission. IV azithromycin the steroid started on admission. Adequately oxygenating on room air on 08/15 exam. With scattered wheezing but subjectively improved. Continue IV azithromycin, IV steroids (taper steroids). Respiratory PCR pending. 2. Morbid obesity: BMI 60, white cell modifications advised. 3. MELODY: per hx. continue home CPAP 4. Tobacco use: Current smoker; cessation advised 5. DVT prophylaxis: Lovenox 6. Steroid-induced leukocytosis: WBC 17K, in the setting of IV steroids. Afebrile, no tachycardia, no hypertension. Patient does not appear toxic or acute. Wean steroids, monitor repeat CBC Qualifiers: Asthma severity: unspecified severity Qualified Code(s): J45.901 - Unspecified asthma with (acute) exacerbation (2) Obesity, morbid (more than 100 lbs over ideal weight or BMI > 40) Current Visit: Yes Status: Chronic (3) Obstructive sleep apnea Current Visit: No Status: Chronic (4) DVT prophylaxis Current Visit: Yes Status: Acute - Subjective Interval history: Seen and examined at bedside, patient is new to me. Information obtained from chart review and patient report. Laying in bed, no distress apparent. Says she is feeling better but still not back to baseline. Feels she needs 1 more night of IV HTB and steroids. Has a dry nonproductive cough. With some shortness of breath with activity but overall improved. No chest pain. - Constitutional Vitals: Temp Pulse Resp BP Pulse Ox 97.4 F L 67 18 120/74 96 08/15/17 07:09 08/15/17 07:09 08/15/17 11:30 08/15/17 07:09 08/15/17 11:30 General appearance: Present: A&O X 3, morbidly obese, pleasant - Head Head exam: Present: atraumatic, normocephalic - Eye Eye exam: Present: PERRL, conjuntiva pink, sclera anicteric Pupils: Present: PERRL - Neck Neck exam general surgery: Present: supple, trachea midline. Absent: lymphadenopathy - Respiratory Respiratory exam: Present: wheezes. Absent: accessory muscle use, rales, rhonchi - Cardiovascular Cardiovascular exam: Present: RRR, +S1, +S2. Absent: diastolic murmur, gallop, rubs, systolic murmur - GI/Abdominal GI/Abdominal exam: Present: normal bowel sounds, soft, no peritoneal signs. Absent: distended, tenderness - Extremities Exam Extremities exam: Present: warm, radial pulses palpable and symmetrical. Absent : calf tenderness, cyanotic, pedal edema - Neurological Exam Neurological exam: Present: CN II-XII intact, oriented X3, no focal deficits. Absent: pronater drift, facial droop, speech deficit - Skin Skin exam: Present: dry, intact Internal Medicine: Result - Labs CBC & Chem 7: 08/15/17 02:07 08/15/17 02:07 Labs: Short CBC 08/15/17 Range/Units 02:07 WBC 17.5 H (4.3-11.1) K/mcL Hgb 14.0 (11.5-15.4) g/dL Hct 41.8 (35.3-44.9) % Plt Count 254 (140-400) K/mcL Neutrophils # 15.9 H (1.6-8.9) K/mcL BMP 08/15/17 02:07 Sodium 136 Potassium 4.5 Chloride 108 Carbon Dioxide 21 BUN 21 H Creatinine 1.04 Glucose 290 H Calcium 9.1 Consult Discharge Plan - Plan Referrals: Michael Salazar MD [Primary Care Provider] -
[2017-08-15] MEDS: Azithromycin 500 MG in D5% in Water 250 ML IVPB SCH (13:42)
[2017-08-15 15:22] LABS: Adenovirus Not Detected (Not Detect); Bordetella Pertussis Not Detected (Not Detect); Chlamydophila pneumoniae Not Detected (Not Detect); Coronavirus 229E Not Detected (Not Detect); Coronavirus HKU1 Not Detected (Not Detect); Coronavirus NL63 Not Detected (Not Detect); Coronavirus OC43 Not Detected (Not Detect); Human Metapneumovirus Not Detected (Not Detect); Human Rhinovirus/Enterovirus ***DETECTED*** (Not Detect); Influenza A Subtype 2009 H1 Not Detected (Not Detect); Influenza A Untypeable Not Detected (Not Detect); Influenza B Not Detected (Not Detect); Mycoplasma pneumoniae Not Detected (Not Detect); Parainfluenza Virus 1 Not Detected (Not Detect); Parainfluenza Virus 2 Not Detected (Not Detect); Parainfluenza Virus 3 Not Detected (Not Detect); Parainfluenza Virus 4 Not Detected (Not Detect); Respiratory Syncytial Virus Not Detected (Not Detect)
[2017-08-15] MEDS: methylPREDNISolone 125 MG/2 ML VIAL IVP SCH ×2 (17:58→23:15)
--- NOTE | 2017-08-15 18:59 | Electrocardiograph Report ---
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
[2017-08-16] MEDS: Ipratropium/Albuterol Neb 3 ML IH SCH ×7 (04:40→23:42)
[2017-08-16 04:47] LABS: Hemoglobin 13.6 g/dL (11.5-15.4); Mean Corpuscular HGB Conc 32.4 g/dL (31.6-35.5); Mean Corpuscular Volume 83.3 fL (83.0-100.0); Mean Platelet Volume 9.5 fL (9.4-12.4); Platelet Count 280 K/mcL (140-400); Red Blood Count 5.04 M/mcL (3.82-4.97); Red Cell Distribution Width 13.2 % (11.5-14.5)
[2017-08-16 05:09] LABS: Alanine Aminotransferase 32 Units/L (0-55); Albumin 3.1 g/dL (3.5-5.0); Albumin/Globulin Ratio 0.7 (1.1-2.2); Alkaline Phosphatase 82 Units/L (38-126); BUN/Creatinine Ratio 25 (6-26); Bilirubin,Total 0.4 mg/dL (0.2-1.2); Blood Urea Nitrogen 27 mg/dL (7-20); Calcium 9.2 mg/dL (8.6-10.8); Carbon Dioxide 21 mEq/L (19-29); Chloride 109 mEq/L (98-109); Globulin 4.4 g/dL (2.4-3.5); Glucose 334 mg/dL (70-99); Osmolality,Calculated 300 (280-300); Sodium 136 mEq/L (136-145); Total Protein 7.5 g/dL (6.0-8.3); eGFR For African Americans > 60 (> 60); eGFR For Non-African Americans 58 (> 60)
[2017-08-16 05:10] LABS: Aspartate Amino Transferase 19 Units/L (5-34)
[2017-08-16] MEDS: *HR* Enoxaparin 40 MG/0.4 ML SYRINGE SQ SCH (05:43)
[2017-08-16] MEDS: Budesonide/Formoterol 160/4.5 MDI IH SCH ×2 (07:32→19:43)
[2017-08-16] MEDS: Furosemide 40 MG TABLET PO SCH (08:26)
[2017-08-16] MEDS: clonazePAM 0.5 MG TABLET PO SCH ×3 (08:26→20:24)
[2017-08-16] MEDS: methylPREDNISolone 125 MG/2 ML VIAL IVP SCH ×2 (08:26→15:20)
[2017-08-16] MEDS: Azithromycin 500 MG in D5% in Water 250 ML IVPB SCH (15:19)
[2017-08-16] MEDS: Acetaminophen 325 MG TABLET PO PRN (15:25)
--- NOTE | 2017-08-16 15:47 | Internal Med Progress Note ---
Date of Encounter: 08/16/17 Time of Encounter: 15:47 - Assessment and plan (1) Acute asthma exacerbation Current Visit: No Status: Acute Assessment and plan: Valerie Sweet is a 37 y/o female with PMH morbid obesity and asthma who presented to [facility] on 08/14/2017 with complaints of SOB. She was found to be in an asthma exacerbation and was admitted for IV steroids. 1. Asthma exacerbation: has known asthma. Presented to ED with worsening shortness of breath and wheezing for 1 week prior to admission. IV azithromycin and steroid started on admission. With increased SOB on 08/16/17 exam; CTA chest negative for pulmonary embolism but did show scattered atelectasis. Still with scattered wheezing on 08/16. Continue IV azithromycin, IV steroids. Strongly encouraged ambulation, out of bed. Add aggressive incentive spirometry 2. Morbid obesity: BMI 60, Lifestyle modifications advised. 3. MELODY: per hx. continue home CPAP 4. Tobacco use: Current smoker; cessation advised 5. DVT prophylaxis: Lovenox 6. Steroid-induced leukocytosis: WBC 17K, in the setting of IV steroids. Afebrile, no tachycardia, no hypertension. Patient does not appear toxic or acute. Monitor repeat CBC. Lactic acid, blood cultures pending Qualifiers: Asthma severity: unspecified severity Qualified Code(s): J45.901 - Unspecified asthma with (acute) exacerbation (2) Obesity, morbid (more than 100 lbs over ideal weight or BMI > 40) Current Visit: Yes Status: Chronic (3) Obstructive sleep apnea Current Visit: No Status: Chronic (4) DVT prophylaxis Current Visit: Yes Status: Acute - Subjective Interval history: Seen and examined at bedside; says she is not breathing so well today. Has a dry, nonproductive cough. Denies chest pain but feels like she is having a hard time catching her breath. - Constitutional Vitals: Temp Pulse Resp BP Pulse Ox 98.8 F 98 17 136/77 93 08/16/17 11:09 08/16/17 11:09 08/16/17 15:29 08/16/17 11:09 08/16/17 15:29 General appearance: Present: A&O X 3, morbidly obese, pleasant - Head Head exam: Present: atraumatic, normocephalic - Eye Eye exam: Present: PERRL, conjuntiva pink, sclera anicteric Pupils: Present: PERRL - Neck Neck exam general surgery: Present: supple, trachea midline. Absent: lymphadenopathy - Respiratory Respiratory exam: Present: wheezes. Absent: accessory muscle use, rales, rhonchi - Cardiovascular Cardiovascular exam: Present: RRR, +S1, +S2. Absent: diastolic murmur, gallop, rubs, systolic murmur - GI/Abdominal GI/Abdominal exam: Present: normal bowel sounds, soft, no peritoneal signs. Absent: distended, tenderness - Extremities Exam Extremities exam: Present: warm, radial pulses palpable and symmetrical. Absent : calf tenderness, cyanotic, pedal edema - Neurological Exam Neurological exam: Present: CN II-XII intact, oriented X3, no focal deficits. Absent: pronater drift, facial droop, speech deficit - Skin Skin exam: Present: dry, intact Internal Medicine: Result - Labs CBC & Chem 7: 08/16/17 04:12 08/16/17 04:12 Labs: Short CBC 08/16/17 Range/Units 04:12 WBC 20.8 H (4.3-11.1) K/mcL Hgb 13.6 (11.5-15.4) g/dL Hct 42.0 (35.3-44.9) % Plt Count 280 (140-400) K/mcL BMP 08/16/17 04:12 Sodium 136 Potassium 5.0 H Chloride 109 Carbon Dioxide 21 BUN 27 H Creatinine 1.06 Glucose 334 H Calcium 9.2 Liver Function 08/16/17 Range/Units 04:12 Total Bilirubin 0.4 (0.2-1.2) mg/dL AST 19 (5-34) Units/L ALT 32 (0-55) Units/L Alkaline Phosphatase 82 (38-126) Units/L Albumin 3.1 L (3.5-5.0) g/dL - Impressions Impressions Chest CTA 08/16/17 11:26 IMPRESSION: 1. No CT evidence of a pulmonary embolism. 2. Scattered curvilinear bands of opacity throughout both lungs, most like representing atelectasis or parenchymal scar. D/ / 08/16/2017 14:50:43 El Farias MD / ramesh Interpreting Provider: El Farias MD Consult Discharge Plan - Plan Referrals: Michael Salazar MD [Primary Care Provider] - (appointment has been web requested. Our offices will call you with an appointment time and date. )
[2017-08-16] MEDS ORDERED: 0.9 % Sodium Chloride 1,000 ML IVC ONE (16:52)
[2017-08-16] MEDS: 0.9 % Sodium Chloride 1,000 ML IVC SCH (18:24)
[2017-08-17] MEDS: methylPREDNISolone 125 MG/2 ML VIAL IVP SCH ×4 (00:58→23:40)
[2017-08-17] MEDS: Ipratropium/Albuterol Neb 3 ML IH SCH ×5 (04:40→20:17)
[2017-08-17] MEDS: *HR* Enoxaparin 40 MG/0.4 ML SYRINGE SQ SCH (05:24)
[2017-08-17 05:52] LABS: Hematocrit 42.4 % (35.3-44.9); Hemoglobin 13.6 g/dL (11.5-15.4); Mean Corpuscular HGB Conc 32.1 g/dL (31.6-35.5); Mean Corpuscular Volume 84.1 fL (83.0-100.0); Mean Platelet Volume 9.3 fL (9.4-12.4); Platelet Count 267 K/mcL (140-400); Red Blood Count 5.04 M/mcL (3.82-4.97); Red Cell Distribution Width 13.2 % (11.5-14.5)
[2017-08-17 06:24] LABS: Alanine Aminotransferase 34 Units/L (0-55); Albumin 3.1 g/dL (3.5-5.0); Albumin/Globulin Ratio 0.8 (1.1-2.2); Alkaline Phosphatase 80 Units/L (38-126); Aspartate Amino Transferase 12 Units/L (5-34); BUN/Creatinine Ratio 27 (6-26); Bilirubin,Total 0.4 mg/dL (0.2-1.2); Blood Urea Nitrogen 26 mg/dL (7-20); Calcium 9.1 mg/dL (8.6-10.8); Carbon Dioxide 18 mEq/L (19-29); Chloride 109 mEq/L (98-109); Glucose 339 mg/dL (70-99); Osmolality,Calculated 298 (280-300); Potassium 4.7 mEq/L (3.5-4.5); Sodium 135 mEq/L (136-145); Total Protein 7.1 g/dL (6.0-8.3); eGFR For African Americans > 60 (> 60); eGFR For Non-African Americans > 60 (> 60)
[2017-08-17] MEDS ORDERED: 0.9 % Sodium Chloride 1,000 ML IVC ONE (07:29)
[2017-08-17] MEDS: Budesonide/Formoterol 160/4.5 MDI IH SCH ×3 (07:34→20:17)
[2017-08-17] MEDS ORDERED: Perflutren Lipid Microsphere 1.3 ML in 0.9 % Sodium Chloride 8.7 ML IVP ONE (08:10)
[2017-08-17] MEDS: Furosemide 40 MG TABLET PO SCH (09:18)
[2017-08-17] MEDS: clonazePAM 0.5 MG TABLET PO SCH ×3 (09:19→21:39)
[2017-08-17 09:40] LABS: Hemoglobin A1C 5.9 %
[2017-08-17 10:02] LABS: ABG Base Excess -7 mEq/L (-2 to 3); ABG HCO3 17 mEq/L (21-27); ABG Oxygen Saturation 91 % (95-98); ABG PCO2 31 mmHg (35-45); ABG PH 7.36 pH Units (7.32-7.45); ABG PO2 62 mmHg (85-104); ABG TCO2 18 mEq/L (20-26)
--- NOTE | 2017-08-17 13:18 | Internal Med Progress Note ---
Date of Encounter: 08/17/17 Time of Encounter: 13:11 - Assessment and plan (1) Acute asthma exacerbation Current Visit: No Status: Acute Assessment and plan: Valerie Sweet is a 37 y/o female with PMH morbid obesity and asthma who presented to [facility] on 08/14/2017 with complaints of SOB. She was found to be in an asthma exacerbation and was admitted for IV steroids. 1. Asthma/COPD exacerbation: has known asthma and likely underlying COPD with tobacco use. Presented to ED with worsening shortness of breath and wheezing for 1 week prior to admission. IV azithromycin and steroid started on admission. With increased SOB on 08/16/17 exam; CTA chest negative for pulmonary embolism but did show scattered atelectasis. Meets sepsis criteria with elevated WBC, elevated lactic acid and tachycardia. Ceftriaxone added 08/16. Respiratory PCR with rhinovirus. Continue IV azithromycin, Rocephin IV fluids, IV steroids. Repeat lactic acid 2. Acute hypoxic respiratory failure: With oxygen saturation 88% while on room air; secondary to asthma exacerbation and morbid obesity likely contributing as well. Encourage aggressive incentive spirometry, ambulation and out of bed. Continue treating asthma as noted above. 3. Morbid obesity: BMI 60, Lifestyle modifications advised. 4. MELODY: per hx. continue home CPAP 5. Tobacco use: Current smoker; cessation advised 6. DVT prophylaxis: Lovenox Qualifiers: Asthma severity: unspecified severity Qualified Code(s): J45.901 - Unspecified asthma with (acute) exacerbation (2) Obesity, morbid (more than 100 lbs over ideal weight or BMI > 40) Current Visit: Yes Status: Chronic (3) Obstructive sleep apnea Current Visit: No Status: Chronic (4) DVT prophylaxis Current Visit: Yes Status: Acute - Subjective Interval history: Seen and examined at bedside. Laying in bed with BiPAP on. Patient says she feels about the same, shortness of breath may be a little better. She is coughing comets nonproductive but feels like she is starting to work something out. Still with shortness of breath with exertion. Denies chest pain. No fevers or chills. - Constitutional Vitals: Temp Pulse Resp BP Pulse Ox 96.4 F L 78 16 124/71 97 08/17/17 11:31 08/17/17 11:31 08/17/17 11:31 08/17/17 11:31 08/17/17 11:31 General appearance: Present: A&O X 3, morbidly obese, pleasant - Head Head exam: Present: atraumatic, normocephalic - Eye Eye exam: Present: PERRL, conjuntiva pink, sclera anicteric Pupils: Present: PERRL - Neck Neck exam general surgery: Present: supple, trachea midline. Absent: lymphadenopathy - Respiratory Respiratory exam: Present: wheezes. Absent: accessory muscle use, rales, rhonchi - Cardiovascular Cardiovascular exam: Present: RRR, +S1, +S2. Absent: diastolic murmur, gallop, rubs, systolic murmur - GI/Abdominal GI/Abdominal exam: Present: normal bowel sounds, soft, no peritoneal signs. Absent: distended, tenderness - Extremities Exam Extremities exam: Present: warm, radial pulses palpable and symmetrical. Absent : calf tenderness, cyanotic, pedal edema - Neurological Exam Neurological exam: Present: CN II-XII intact, oriented X3, no focal deficits. Absent: pronater drift, facial droop, speech deficit - Skin Skin exam: Present: dry, intact Internal Medicine: Result - Labs CBC & Chem 7: 08/17/17 05:09 08/17/17 05:09 Labs: Short CBC 08/17/17 Range/Units 05:09 WBC 17.1 H (4.3-11.1) K/mcL Hgb 13.6 (11.5-15.4) g/dL Hct 42.4 (35.3-44.9) % Plt Count 267 (140-400) K/mcL BMP 08/17/17 05:09 Sodium 135 L Potassium 4.7 H Chloride 109 Carbon Dioxide 18 L BUN 26 H Creatinine 0.97 Glucose 339 H Calcium 9.1 Liver Function 08/17/17 Range/Units 05:09 Total Bilirubin 0.4 (0.2-1.2) mg/dL AST 12 (5-34) Units/L ALT 34 (0-55) Units/L Alkaline Phosphatase 80 (38-126) Units/L Albumin 3.1 L (3.5-5.0) g/dL - ABG Interpretation ABG results: ABG ABG pH 7.36 pH Units (7.32-7.45) 08/17/17 09:57 ABG pCO2 31 mmHg (35-45) L 08/17/17 09:57 ABG pO2 62 mmHg (85-104) L 08/17/17 09:57 ABG O2 Saturation 91 % (95-98) L 08/17/17 09:57 - Impressions Impressions Chest CTA 08/16/17 11:26 IMPRESSION: 1. No CT evidence of a pulmonary embolism. 2. Scattered curvilinear bands of opacity throughout both lungs, most like representing atelectasis or parenchymal scar. D/ / 08/16/2017 14:50:43 El Farias MD / ramesh Interpreting Provider: El Farias MD Consult Discharge Plan - Plan Referrals: Michael Salazar MD [Primary Care Provider] - (appointment has been web requested. Our offices will call you with an appointment time and date. )
[2017-08-17] MEDS: 0.9 % Sodium Chloride 1,000 ML IVC SCH (14:24)
[2017-08-17] MEDS: Azithromycin 500 MG in D5% in Water 250 ML IVPB SCH (15:25)
[2017-08-17] MEDS ORDERED: Ondansetron 4 MG/2 ML VIAL IVP ONE (15:36)
[2017-08-17 21:03] LABS: Bilirubin,Urine Negative (Negative); Blood,Urine Moderate (Negative); Clarity,Urine Clear (Clear); Color,Urine Yellow (Yellow); Glucose,Urine (UA) >=1000 mg/dL (Normal); Ketones,Urine Negative (Negative); Leukocyte Esterase,Urine Negative (Negative); Nitrite,Urine Negative (Negative); Protein,Urine Negative (Neg-Trace); Specific Gravity,Urine 1.026 (1.010-1.025); Urobilinogen,Urine Normal (Normal)
[2017-08-17 21:05] LABS: Bacteria,Urine None Seen per hpf (None-Few); Hyaline Casts,Urine None Seen per lpf (None-Few); Squamous Epithelial Cell,Urine Many per lpf (None-Few); WBC,Urine 0-3 per hpf (0-3)
[2017-08-18] MEDS: Ipratropium/Albuterol Neb 3 ML IH SCH ×7 (00:40→23:43)
[2017-08-18] MEDS: 0.9 % Sodium Chloride 1,000 ML IVC SCH (01:07)
[2017-08-18 04:26] LABS: Hematocrit 41.1 % (35.3-44.9); Hemoglobin 13.4 g/dL (11.5-15.4); Mean Corpuscular HGB Conc 32.6 g/dL (31.6-35.5); Mean Corpuscular Hemoglobin 27.5 pg (28.0-33.3); Mean Corpuscular Volume 84.4 fL (83.0-100.0); Mean Platelet Volume 9.5 fL (9.4-12.4); Platelet Count 226 K/mcL (140-400); Red Blood Count 4.87 M/mcL (3.82-4.97); Red Cell Distribution Width 12.9 % (11.5-14.5)
[2017-08-18 04:43] LABS: Alanine Aminotransferase 30 Units/L (0-55); Albumin/Globulin Ratio 0.8 (1.1-2.2); Alkaline Phosphatase 71 Units/L (38-126); Aspartate Amino Transferase 7 Units/L (5-34); BUN/Creatinine Ratio 28 (6-26); Bilirubin,Total 0.4 mg/dL (0.2-1.2); Blood Urea Nitrogen 26 mg/dL (7-20); Calcium 8.8 mg/dL (8.6-10.8); Carbon Dioxide 14 mEq/L (19-29); Chloride 109 mEq/L (98-109); Globulin 3.6 g/dL (2.4-3.5); Glucose 378 mg/dL (70-99); Osmolality,Calculated 296 (280-300); Potassium 4.5 mEq/L (3.5-4.5); Sodium 133 mEq/L (136-145); Total Protein 6.6 g/dL (6.0-8.3); eGFR For African Americans > 60 (> 60); eGFR For Non-African Americans > 60 (> 60)
[2017-08-18] MEDS: *HR* Enoxaparin 40 MG/0.4 ML SYRINGE SQ SCH (06:01)
[2017-08-18] MEDS ORDERED: Dextrose Gel 15 GM PO PRN ×2 (07:35)
[2017-08-18] MEDS ORDERED: D5% in Water 1,000 ML IVC PRN (07:35)
[2017-08-18] MEDS ORDERED: *HR* Dextrose 50 % in Water (Syg) 50 ML SYRINGE IVP PRN (07:35)
[2017-08-18] MEDS: Budesonide/Formoterol 160/4.5 MDI IH SCH ×2 (07:37→19:25)
[2017-08-18] MEDS: clonazePAM 0.5 MG TABLET PO SCH ×3 (08:06→20:49)
[2017-08-18] MEDS: Furosemide 40 MG TABLET PO SCH (08:06)
[2017-08-18] MEDS: methylPREDNISolone 125 MG/2 ML VIAL IVP SCH (08:12)
[2017-08-18] MEDS: Insulin LISPRO 300 UNITS/3 ML VIAL SQ SCH ×3 (08:37→17:26)
[2017-08-18 10:14] LABS: ABG Base Excess -10 mEq/L (-2 to 3); ABG HCO3 16 mEq/L (21-27); ABG Oxygen Saturation 96 % (95-98); ABG PCO2 35 mmHg (35-45); ABG PH 7.28 pH Units (7.32-7.45); ABG PO2 94 mmHg (85-104); ABG TCO2 17 mEq/L (20-26); Blood Gas Modality room air
--- NOTE | 2017-08-18 11:55 | Pulmonology Consult Note ---
<Wang Mobley - Last Filed: 08/18/17 17:26> Date of Encounter: 08/18/17 Time of Encounter: 11:55 Assessment and Plan (1) Acute asthma exacerbation Current Visit: Yes Status: Acute Asthma exacerbation with contributing factors of non-compliance with BiPAP, COPD , obesity, MELODY, fluid overload and continued tobacco use. Patient is currently stable on room air, in no acute distress, or SOB. Sat 02 96% on Room air. WBC downtrending, currently 13.5. [place] cultures, positive for entero/rhino. Lactic acid 2.6 today, most likely due to recent hypoxia. - consult Staffing Specialist to evaluate bipap machine - educated patient on neb and bipap compliance - educated patient on smoking cessation - recommended patient to follow up with yarn weight and strength tester outpatient - start 5 days of prednisone, and D/C methylprednisolone - continue albuterol neb, duoneb, montelukast, azithromycin, symbicort, lasix 40 mg - Peak expiratory flow ordered - continue incentive spirometry. - recommended patient to increase ambulation - goal O2 > 88% Qualifiers: Asthma severity: unspecified severity Qualified Code(s): J45.901 - Unspecified asthma with (acute) exacerbation History of Present Illness Consult date: 08/18/17 Requesting physician: Martha Nunes Reason for consult: asthma, COPD Chief complaint: SOB History of present illness: Ms Sweet is a 37 year old female hospitalized for SOB with a history of Obesity , COPD w/ tobacco use, and Asthma. Prior to hospitalization, patient reports compliancy with home nebulizer treatments but not compliant with bipap. She has a history of frequent hospitalizations. Patient was seen today not on oxygen, and in no acute distress. She denies current SOB, chest pain, and expresses that she would like to be discharged. Past Med Surg Social Fam HX - Past Medical History Medical history: asthma, kidney stones Psychiatric history: anxiety, depression - Past Surgical History Surgical History: , cholecystectomy - Social History Smoking Status: Current every day smoker Smokeless Tobacco Status: No Alcohol use: none Drug use: none - Family History Father Living Status: Hx Family Cardiac Disorders: Yes Hx Family Respiratory Disorders: No Hx Family Cancer: Yes (bone and breast) Hx Family GI Disorders: Yes Hx Family Endocrine Disorder: No Hx Family Neuromuscular Disorders: No Hx Family Neurologic Disorders: No Hx Family HEENT Disorders: No Hx Family Autoimmune Disorders: No Medications and Allergies Sertraline [Zoloft] 50 mg PO HS 01/28/16 [History] Albuterol Sulfate [Proair Hfa] 2 puff IH Q4-6H PRN 05/23/16 [History] Tiotropium [Spiriva] 18 mcg IH DAILY 08/08/16 [History] clonazePAM [Klonopin] 0.5 mg PO TID 08/08/16 [History] Potassium Chloride 20 meq PO DAILY 30 Days tab.er.prt 01/20/17 [Rx] Albuterol Neb [Proventil Neb] 2.5 mg IH TID 08/14/17 [History] Furosemide [Lasix] 40 mg PO DAILY 08/14/17 [History] Ipratropium Neb [Atrovent Neb] 0.5 mg IH QID PRN 08/14/17 [History] Mometasone/Formoterol [Dulera 200 Mcg/5 Mcg Inhaler] 2 puff IH BID 08/14/17 [ History] Montelukast [Singulair] 10 mg PO QPM 08/14/17 [History] 3 Allergy/AdvReac Type Severity Reaction Status Date / Time levofloxacin [From Levaquin] Allergy Anaphylaxis Verified 08/14/17 09:20 Penicillins [PCN] Allergy Anaphylaxis Verified 08/14/17 09:20 All Systems: A 10-system review of systems was performed and is negative for pertinent findings except as documented above in the HPI. - Constitutional Constitutional: snoring, no excessive sweating, no lethargy, no night sweats - EENT Nose, mouth and throat: no hoarseness, no nasal congestion, no nasal discharge, no nasal obstruction - Cardiovascular Cardiovascular: no chest pain - Respiratory Respiratory: no dyspnea, no hemoptysis, no wheezing, no snoring - Psychiatric Psychiatric: no anxiety Physical Examination Vital Signs: Vital Signs, Last 4 Hours Temp Pulse Resp BP Pulse Ox 08/18/17 11:34 16 96 08/18/17 10:36 97.9 F 85 17 148/85 89 General appearance: no acute distress Effort: normal Auscultation: bilateral: wheezes (bilateraly and diffuse) Cardiovascular: regular rate and rhythm Gastrointestinal: normoactive bowel sounds, non-distended Extremities: pulses normal (radial, posterior tibial and dorsalis pedis bilaterally), edema (1/4 BLE) normal mental status mood appropriate, affect normal Results - Laboratory Findings CBC and BMP: 08/18/17 04:05 08/18/17 04:05 ABG ABG pH 7.28 pH Units (7.32-7.45) L 08/18/17 10:08 ABG pCO2 35 mmHg (35-45) 08/18/17 10:08 ABG pO2 94 mmHg (85-104) 08/18/17 10:08 ABG O2 Saturation 96 % (95-98) 08/18/17 10:08 Abnormal lab findings: Abnormal lab results WBC 13.5 K/mcL (4.3-11.1) H 08/18/17 04:05 MCH 27.5 pg (28.0-33.3) L 08/18/17 04:05 Neutrophils # 15.9 K/mcL (1.6-8.9) H 08/15/17 02:07 ABG pH 7.28 pH Units (7.32-7.45) L 08/18/17 10:08 ABG HCO3 16 mEq/L (21-27) L 08/18/17 10:08 ABG Total CO2 17 mEq/L (20-26) L 08/18/17 10:08 ABG Base Excess -10 mEq/L (-2 to 3) L 08/18/17 10:08 Sodium 133 mEq/L (136-145) L 08/18/17 04:05 Carbon Dioxide 14 mEq/L (19-29) L 08/18/17 04:05 BUN 26 mg/dL (7-20) H 08/18/17 04:05 BUN/Creatinine Ratio 28 (6-26) H 08/18/17 04:05 Glucose 378 mg/dL (70-99) H 08/18/17 04:05 Hemoglobin A1c 5.9 % (-5.6) H 08/17/17 05:09 Lactic Acid 2.6 mmol/L (0.5-2.2) H 08/18/17 04:05 Albumin 3.0 g/dL (3.5-5.0) L 08/18/17 04:05 Globulin 3.6 g/dL (2.4-3.5) H 08/18/17 04:05 Albumin/Globulin Ratio 0.8 (1.1-2.2) L 08/18/17 04:05 Ur Specific [place] 1.026 (1.010-1.025) H 08/17/17 20:49 Urine Glucose (UA) >=1000 mg/dL (Normal) H 08/17/17 20:49 Urine Blood Moderate (Negative) H 08/17/17 20:49 Urine Microscopic RBC 5-15 per hpf (0-3) H 08/17/17 20:49 Ur Squamous Epith Cells Many per lpf (None-Few) H 08/17/17 20:49 Entero/Rhino (PCR) DETECTED (Not Detect) A 08/15/17 13:50 - Microbiology Findings Microbiology Findings: Microbiology, Last 48 Hours 08/16/17 16:10 Blood Culture - Preliminary Peripheral Venipuncture No growth. 08/16/17 16:10 Blood Culture - Preliminary Peripheral Venipuncture No growth. 08/17/17 20:49 Legionella Antigen - Final Urine,Clean Catch Streptococcus pneumoniae Antigen (M - Final - Clinical Findings Intake & Output: Intake & Output 08/17/17 08/18/17 08/18/17 23:59 07:59 15:59 Intake Total 1000 / 1000 Output Total 600 / 600 Balance -600 / -600 1000 / 1000 Consult Discharge Plan - Plan Referrals: Michael Salazar MD [Primary Care Provider] - 08/22/17 10:15 am () <Jac Kilgore M - Last Filed: 08/18/17 22:26> Date of Encounter: 08/18/17 All Systems: A 10-system review of systems was performed and is negative for pertinent findings except as documented above in the HPI. Physical Examination Vital Signs: Vital Signs, Last 4 Hours Temp Pulse Resp BP Pulse Ox 08/18/17 15:58 16 95 08/18/17 14:52 98 F 85 17 118/72 98 Results - Laboratory Findings CBC and BMP: 08/18/17 04:05 08/18/17 04:05 ABG ABG pH 7.28 pH Units (7.32-7.45) L 08/18/17 10:08 ABG pCO2 35 mmHg (35-45) 08/18/17 10:08 ABG pO2 94 mmHg (85-104) 08/18/17 10:08 ABG O2 Saturation 96 % (95-98) 08/18/17 10:08 Abnormal lab findings: Abnormal lab results WBC 13.5 K/mcL (4.3-11.1) H 08/18/17 04:05 MCH 27.5 pg (28.0-33.3) L 08/18/17 04:05 Neutrophils # 15.9 K/mcL (1.6-8.9) H 08/15/17 02:07 ABG pH 7.28 pH Units (7.32-7.45) L 08/18/17 10:08 ABG HCO3 16 mEq/L (21-27) L 08/18/17 10:08 ABG Total CO2 17 mEq/L (20-26) L 08/18/17 10:08 ABG Base Excess -10 mEq/L (-2 to 3) L 08/18/17 10:08 Sodium 133 mEq/L (136-145) L 08/18/17 04:05 Carbon Dioxide 14 mEq/L (19-29) L 08/18/17 04:05 BUN 26 mg/dL (7-20) H 08/18/17 04:05 BUN/Creatinine Ratio 28 (6-26) H 08/18/17 04:05 Glucose 378 mg/dL (70-99) H 08/18/17 04:05 Hemoglobin A1c 5.9 % (-5.6) H 08/17/17 05:09 Lactic Acid 2.6 mmol/L (0.5-2.2) H 08/18/17 04:05 Albumin 3.0 g/dL (3.5-5.0) L 08/18/17 04:05 Globulin 3.6 g/dL (2.4-3.5) H 08/18/17 04:05 Albumin/Globulin Ratio 0.8 (1.1-2.2) L 08/18/17 04:05 Ur Specific [place] 1.026 (1.010-1.025) H 08/17/17 20:49 Urine Glucose (UA) >=1000 mg/dL (Normal) H 08/17/17 20:49 Urine Blood Moderate (Negative) H 08/17/17 20:49 Urine Microscopic RBC 5-15 per hpf (0-3) H 08/17/17 20:49 Ur Squamous Epith Cells Many per lpf (None-Few) H 08/17/17 20:49 Entero/Rhino (PCR) DETECTED (Not Detect) A 08/15/17 13:50 - Microbiology Findings Microbiology Findings: Microbiology, Last 48 Hours 08/16/17 16:10 Blood Culture - Preliminary Peripheral Venipuncture No growth. 08/16/17 16:10 Blood Culture - Preliminary Peripheral Venipuncture No growth. 08/17/17 20:49 Legionella Antigen - Final Urine,Clean Catch Streptococcus pneumoniae Antigen (M - Final - Clinical Findings Intake & Output: Intake & Output 08/18/17 08/18/17 08/18/17 07:59 15:59 23:59 Intake Total 1000 / 1000 500 / 500 Balance 1000 / 1000 500 / 500 - Attending Attestation I examined this patient and my medical decision-making was reviewed with the Resident Physician. I agree with the documented findings, disposition and treatment plan as described except to the extent set forth below. Patient seen and examined. Labs, radiology, chart personally reviewed. 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 Clinically patient seems to be comfortable and not in any acute distress and to discuss with primary team that the patient can be discharged home on taper steroid and empiric antibiotics, however I feel if she is not compliant with her noninvasive ventilation most likely she will be returned to the hospital again. I have explained to the patient about the importance to be compliant with her bronchodilators and noninvasive ventilation and she can follow up as outpatient. Peak flow meter would be a good way to monitor her symptoms. patient has oxygen at home and mild increase in lactic acid could be secondary to hypoxia. Cardiovascular: stable
--- NOTE | 2017-08-18 12:07 | Discharge Summary ---
Date of Encounter: 08/18/17 Time of Encounter: 11:33 - Discharge Diagnosis (1) Acute asthma exacerbation Priority: Primary Status: Acute Comments: Valerie Sweet is a 37 y/o female with PMH morbid obesity and asthma who presented to [facility] on 08/14/2017 with complaints of SOB. She was found to be in an asthma exacerbation and was admitted for IV ATBs and steroids. 1. Asthma/COPD exacerbation: has known asthma and likely underlying COPD with tobacco use. Presented to ED with worsening shortness of breath and wheezing for 1 week prior to admission. CTA chest with scattered atelectasis, negative for pulmonary embolism. Respiratory PCR positive for rhinovirus. IV steroids transition to PO. Continue IV azithromycin, ceftriaxone (day 5). Continue supplemental oxygen. 2. Acute hypoxic respiratory failure: With oxygen saturation 88% while on room air; secondary to asthma exacerbation and morbid obesity likely contributing as well. Encourage aggressive incentive spirometry, ambulation and out of bed. Continue treating asthma as noted above. Pulm consulted 3. Chest pain: Reports chest pressure/tightness on 08/18 exam. No previous ischemic evaluation. Cycle troponin, stress test in a.m. Monitor on telemetry. Start ASA 4. Primary metabolic acidosis with superimposed respiratory acidosis: with normal anion gap. Secondary to asthma/COPD exacerbation with elevated lactic acid. Continue treating underlying conditions. 5. Sepsis: Meets sepsis criteria with elevated WBC, elevated lactic acid and tachycardia. Secondary to asthma/COPD exacerbation. WBC, lactic acid trending down. Continue treating underlying causes. 6. Morbid obesity: BMI 60, Lifestyle modifications advised. 4. MELODY: per hx. continue home CPAP 5. Tobacco use: Current smoker; cessation advised 6. DVT prophylaxis: Lovenox Qualifiers: Asthma severity: unspecified severity Qualified Code(s): J45.901 - Unspecified asthma with (acute) exacerbation (2) Obesity, morbid (more than 100 lbs over ideal weight or BMI > 40) Priority: Primary Status: Chronic (3) Obstructive sleep apnea Priority: Primary Status: Chronic (4) DVT prophylaxis Priority: Primary Status: Acute - Discharge Medications Home Medications: Sertraline [Zoloft] 50 mg PO HS 01/28/16 [History] Albuterol Sulfate [Proair Hfa] 2 puff IH Q4-6H PRN 05/23/16 [History] Tiotropium [Spiriva] 18 mcg IH DAILY 08/08/16 [History] clonazePAM [Klonopin] 0.5 mg PO TID 08/08/16 [History] Potassium Chloride 20 meq PO DAILY 30 Days tab.er.prt 01/20/17 [Rx] Albuterol Neb [Proventil Neb] 2.5 mg IH TID 08/14/17 [History] Furosemide [Lasix] 40 mg PO DAILY 08/14/17 [History] Ipratropium Neb [Atrovent Neb] 0.5 mg IH QID PRN 08/14/17 [History] Mometasone/Formoterol [Dulera 200 Mcg/5 Mcg Inhaler] 2 puff IH BID 08/14/17 [ History] Montelukast [Singulair] 10 mg PO QPM 08/14/17 [History] Allergies/Adverse Reactions: 3 Allergy/AdvReac Type Severity Reaction Status Date / Time levofloxacin [From Levaquin] Allergy Anaphylaxis Verified 08/14/17 09:20 Penicillins [PCN] Allergy Anaphylaxis Verified 08/14/17 09:20 Procedures/tests Complete & Pending: Procedures Performed prior 72 hours Category Date Time Status CT angio chest [CT] Routine Cat Scan 08/16/17 11:26 Completed EV echocardiogram w enhance Routine Y 08/17/17 11:26 Completed Date of admission: 08/15/17 17:11 Primary care physician: Michael Salazar MD Consults: 08/18/17 09:21 Consult to Pulmonology [CONS] Routine Consulting Provider: [facility] [place] Reason for Consult: Asthma exacerbation without improvement; hypoxic resp failure Call Completed: Yes Discharging clinician: Martha Nunes Anticipated date of discharge: 08/18/17 - Patient Status Disposition: Home, Self-Care Functional capacity at discharge: independent ambulation - Discharge Instructions Follow Up With: Michael Salazar MD [Primary Care Provider] - 08/22/17 10:15 am () - Diet and Activity Activity: resume usual activities as tolerated Diet: advance to your usual diet Interval History: Seen and examined at bedside. Patient initially had wanted to go home, said she felt better. Had oxygen at home. Pulm was consult was recommended transitioning to by mouth steroids and ATB. However patient later complained of chest pain/tightness. Cp located to center of chest, does not radiate. Worse with ambulation. Hospital course: Ms. Sweet is a 37 year old female - Time Spent with Patient Total time spent providing and/or coordinating discharge services: - Constitutional Vitals: Temp Pulse Resp BP Pulse Ox 97.9 F 85 17 148/85 89 08/18/17 10:36 08/18/17 10:36 08/18/17 10:36 08/18/17 10:36 08/18/17 10:36 General appearance: Present: A&O X 3, morbidly obese, pleasant - Head Head exam: Present: atraumatic, normocephalic - Eye Eye exam: Present: PERRL, conjuntiva pink, sclera anicteric Pupils: Present: PERRL - Neck Neck exam general surgery: Present: supple, trachea midline. Absent: lymphadenopathy - Respiratory Respiratory exam: Present: respiratory distress, wheezes. Absent: accessory muscle use, rales, rhonchi - Cardiovascular Cardiovascular exam: Present: RRR, +S1, +S2. Absent: diastolic murmur, gallop, rubs, systolic murmur - GI/Abdominal GI/Abdominal exam: Present: normal bowel sounds, soft, no peritoneal signs. Absent: distended, tenderness - Extremities Exam Extremities exam: Present: warm, radial pulses palpable and symmetrical. Absent : calf tenderness, cyanotic, pedal edema - Neurological Exam Neurological exam: Present: CN II-XII intact, oriented X3, no focal deficits. Absent: pronater drift, facial droop, speech deficit - Skin Skin exam: Present: dry, intact
[2017-08-18] MEDS: Azithromycin 500 MG in D5% in Water 250 ML IVPB SCH (13:12)
[2017-08-18] MEDS: Aspirin 81 MG TAB.CHEW PO SCH (14:57)
[2017-08-18] MEDS ORDERED: methylPREDNISolone 125 MG/2 ML VIAL IVP SCH (16:00)
[2017-08-18] MEDS ORDERED: Ondansetron 4 MG/2 ML VIAL IVP PRN (18:46)
[2017-08-18] MEDS ORDERED: Insulin LISPRO 300 UNITS/3 ML VIAL SQ SCH (21:00)
[2017-08-19 00:52] LABS: Hematocrit 39.6 % (35.3-44.9); Hemoglobin 13.5 g/dL (11.5-15.4); Mean Corpuscular HGB Conc 34.1 g/dL (31.6-35.5); Mean Corpuscular Hemoglobin 28.2 pg (28.0-33.3); Mean Corpuscular Volume 82.7 fL (83.0-100.0); Mean Platelet Volume 8.7 fL (9.4-12.4); Platelet Count 259 K/mcL (140-400); Red Blood Count 4.79 M/mcL (3.82-4.97); Red Cell Distribution Width 12.6 % (11.5-14.5)
[2017-08-19 01:07] LABS: Alanine Aminotransferase 28 Units/L (0-55); Albumin/Globulin Ratio 0.9 (1.1-2.2); Alkaline Phosphatase 65 Units/L (38-126); Aspartate Amino Transferase 6 Units/L (5-34); BUN/Creatinine Ratio 31 (6-26); Bilirubin,Total 0.5 mg/dL (0.2-1.2); Blood Urea Nitrogen 32 mg/dL (7-20); Calcium 9.1 mg/dL (8.6-10.8); Carbon Dioxide 19 mEq/L (19-29); Chloride 106 mEq/L (98-109); Globulin 3.5 g/dL (2.4-3.5); Glucose 296 mg/dL (70-99); Osmolality,Calculated 294 (280-300); Potassium 4.1 mEq/L (3.5-4.5); Sodium 133 mEq/L (136-145); Total Protein 6.5 g/dL (6.0-8.3); eGFR For African Americans > 60 (> 60); eGFR For Non-African Americans 60 (> 60)
[2017-08-19] MEDS: Ipratropium/Albuterol Neb 3 ML IH SCH ×4 (03:18→15:53)
[2017-08-19] MEDS: *HR* Enoxaparin 40 MG/0.4 ML SYRINGE SQ SCH (05:13)
[2017-08-19] MEDS ORDERED: Regadenoson 0.4 MG/5 ML SYRINGE IVP ONE (05:40)
[2017-08-19] MEDS ORDERED: predniSONE 20 MG TABLET PO SCH (09:00)
[2017-08-19] MEDS: Furosemide 40 MG TABLET PO SCH (09:00)
[2017-08-19] MEDS: clonazePAM 0.5 MG TABLET PO SCH ×2 (09:00→13:09)
[2017-08-19] MEDS: Aspirin 81 MG TAB.CHEW PO SCH (09:00)
[2017-08-19] MEDS: Insulin LISPRO 300 UNITS/3 ML VIAL SQ SCH ×3 (09:03→17:25)
[2017-08-19] MEDS: Budesonide/Formoterol 160/4.5 MDI IH SCH (10:18)
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
[2017-08-19] MEDS: Azithromycin 500 MG in D5% in Water 250 ML IVPB SCH (13:08)
[2017-08-19 15:12] VITALS: BP 134/65
--- NOTE | 2017-08-19 16:09 | Event Note ---
Date of Encounter: 08/19/17 Time of Encounter: 11:00 Patient was discharged by [facility] on 08/18/17 however she developed concerning chest tightness on discharge and was kept an additional day for cardiac stress tests. Today patient completed the first of 2 part stress test. When stress test is completed on 08/20/17 if negative patient will be discharge to complete a short course of prednisone and azithromycin. Will reevaluate patient on 08/20/17.
--- NOTE | 2017-08-20 14:57 | Nuclear Medicine Stress Report ---
Regadenoson Nuclear 2 day Name: Valerie Sweet Date of Study: 08/19/2017 Date: 1980 Ht: 64.0 in Medical Record#: [id number] Age: 37 Wt: 362.0 lb Gender: Female Order #: [id number] Location: [facility] Room: [facility] Supervising Provider: Chyna Lara CNP Reading Physician: Elias Biggs MD, [facility] Ordering Physician: Martha Nunes CNP Stress Technologist: Raya Scott RETAIL CLERK, CCT Rotary Furnace Tender: Gricel Hui Indications: Shortness of breath, Chest Pain Impression: Suboptimal quality study due to body habitus with significant breast attenuation artifact. Gated LVEF = 72%. Perfusion imaging was negative for ischemia or infarct. History: History of Smoking Stress Test Summary: Stress Test Type: Pharmacologic Regadenoson 0.4mg/5ml given IV Baseline Information: Initial Heart Rate: 78 Blood Pressure: 128/76 Stress Information: Test Terminated Due to (primary): As per protocol Maximum Blood Pressure: 126/78 Maximum Heart Rate: 111 Percent Maximum Heart Rate Achieved: 61 Double Product: [id number] Symptoms: No chest symptoms, Shortness of breath Nuclear Summary: SPECT myocardial perfusion imaging using Tc99m Sestamibi given intravenously was performed at rest and following cardiac stress testing. The resting images were obtained following initial dose of 26.8 mCi. Following stress an additional dose of 35.9 mCi was given at peak exercise or 30 seconds post regadenoson infusion. Findings: Stress Note * Resting ECG demonstrated normal sinus rhythm. * No baseline arrhythmias were noted. * Patient had no chest pain during stress. * No arrhythmias were noted during stress. * No significant ECG changes with regadenoson. Hemodynamic responses * Normal hemodynamic responses to pharmacologic stress. Study Quality * Suboptimal quality study due to body habitus with significant breast attenuation artifact. Gated EF % * Gated LVEF = 72%. Left Ventricle * The left ventricle is not dilated. * Normal Segmental Perfusion in rest. * Normal segmental perfusion in stress. * Breast attenuation artifact is noted. TID * No evidence of transient ischemic dilatation. Updated by Elias Biggs MD, [facility] on 08/20/2017 2:50:54 PM electronically signed on 08/20/2017 2:51:20 PM with status of Final
== END 2017-08-19 19:06 | disposition left against medical advice (07) | DRG 720 ==
LOC: EMEROO 09:18 → 3BNU 09:18
PROVIDERS: ADMIT Registered Nurse; ATTEND Registered Nurse

== ENCOUNTER 2017-12-23 17:30 | Inpatient (IN) ==
[2017-12-23] MEDS ORDERED: Ipratropium/Albuterol Neb 3 ML IH ONE (17:50)
[2017-12-23] MEDS ORDERED: methylPREDNISolone 125 MG/2 ML VIAL IVP ONE (17:50)
--- NOTE | 2017-12-23 17:54 | Emergency Department Note ---
Disposition Clinical Impression: Hypoxia, Acute exacerbation of COPD with asthma Disposition: Admitted As Inpatient Condition: Fair Referrals: Michael Salazar MD [Primary Care Provider] - Forms: ED Satisfaction Letter Time of Disposition: 21:18 SOB HPI - General Chief Complaint: ED Shortness of Breath/Dyspnea Stated Complaint: TOREY Time Seen by Provider: 12/23/17 17:42 Source: patient Limitations: no limitations Nursing Notes Reviewed: Yes Vital Signs Reviewed: Yes - History of Present Illness 37-year-old female presents complaining of shortness breath and wheezing and cough. She has been having symptoms for last 2-3 days, she has had worsening symptoms with exertion. Patient states that she went to urgent care earlier and they gave her breathing treatment, they did a chest x-ray and thought that she should come into the emergency department. And he recommended her transfer. The patient states that she has had a cough sometimes productive, denies hemoptysis, denies bilateral lower surgery swelling or history of DVT or PE. Patient states that she has some chest tightness she describes as 2 out of 10 nonradiating. Pt Subjective Complaint: shortness of breath Onset (ago): day(s) Severity: moderate Consistency/Duration: constant Improves with: nothing Worsens with: nothing Known history of: asthma Associated symptoms: Reports: cough, wheezing. Denies: chest pain, pain with inspiration, fever, sputum production, orthopnea, lower extremity pain Treatment prior to arrival: none Cough present: Yes Cough Description: Involuntary Cough Frequency: Continuous Sputum production: No - Related Data Home Medications Medication Instructions Recorded Confirmed Sertraline [Zoloft] 50 mg PO HS 01/28/16 12/23/17 Albuterol Sulfate [Proair Hfa] 2 puff IH Q6H PRN 05/23/16 12/23/17 clonazePAM [Klonopin] 0.5 mg PO BID 08/08/16 12/23/17 Albuterol Neb [Proventil Neb] 2.5 mg IH TID 08/14/17 12/23/17 Furosemide [Lasix] 40 mg PO DAILY 08/14/17 12/23/17 Ipratropium Neb [Atrovent Neb] 0.5 mg IH QID PRN 08/14/17 12/23/17 Mometasone/Formoterol [Dulera 200 2 puff IH BID 08/14/17 12/23/17 Mcg/5 Mcg Inhaler] Montelukast [Singulair] 10 mg PO QPM 08/14/17 12/23/17 Iron Ps Cmplx/Vit B12/FA 1 each PO DAILY 12/23/17 12/23/17 [Poly-Iron 150 Forte Capsule] Tiotropium Willis [Spiriva 2 puff IH DAILY 12/23/17 12/23/17 Respimat] Allergies Allergy/AdvReac Type Severity Reaction Status Date / Time levofloxacin [From Levaquin] Allergy Anaphylaxis Verified 09/03/17 12:21 Penicillins [PCN] Allergy Anaphylaxis Verified 09/03/17 12:21 All systems ED: reviewed and negative except as stated. Review of Systems: As Per HPI Constitutional: Denies: fever, chills Eyes: Denies: eye pain ENT ED: Denies: ear pain Cardiovascular: Denies: chest pain Respiratory: Reports: as per HPI, cough, dyspnea, wheezes Gastrointestinal: Denies: abdominal pain Genitourinary: Denies: urgency Musculoskeletal: Denies: back pain Integumentary: Denies: rash Neurological: Denies: headache Psychiatric: Denies: anxiety Endocrine: Denies: fatigue Hematological/Lymphatic: Denies: easy bleeding Past Medical History - Past Medical History Attestation: Yes The following information was validated with the patient. Source: patient Medical history: Reports: asthma, CHF Surgical history: Reports: (2002), cholecystectomy (2006) Psychiatric history: Reports: anxiety, depression APPLICATION HELPER history: Reports: no APPLICATION HELPER history, bilateral tubal ligation - Social History Smoking Status: Current every day smoker Smokeless Tobacco Status: No Alcohol use: Reports: none Drug use: Reports: none Physical Exam Constitutional: Conversational dyspnea, Oxy sat 92% on 3 L Eyes: PERRLA, sclera anicteric ENT & Mouth: MM dry Neck: normal inspection, neck is supple Resp: Diffuse inspiratory and expiratory wheezes CV: RRR, no m/g/r GI: Obese soft, no guarding or rigidity Neuro: A&O3, CNII-XII grossly intact, PUENTES Skin: on limited exam, skin intact with no rashes or lesions - General Limitations: no limitations General appearance: alert, in no apparent distress Course Course Narrative: 37-year-old female with shortness of breath, failed albuterol treatment at the urgent care, patient complaining of worsening shortness of breath I did order a DuoNeb 3 and SoluMedrol, basic lab work CBC BMP, troponin. - Reevaluation(s) Reevaluation #1: I reevaluated the patie [place] ambulation about 50 feet and she was too short of breath to continue walking without oxygen, her oxygen saturation dipped into the 90s, at home she was in the 80s. Patient is only on oxygen at night and therefore given increased oxygen demand requiring oxygen all the time, no response after DuoNeb 3, the patient will be admitted for further evaluation and COPD exacerbation. Vital Signs Temperature 97.9 F 12/23/17 17:33 Pulse Rate 117 12/23/17 17:33 Respiratory Rate 24 12/23/17 17:33 Blood Pressure 141/90 12/23/17 17:33 O2 Sat by Pulse Oximetry 96 12/23/17 17:33 Temperature 97.9 F 12/23/17 17:33 Pulse Rate 112 12/23/17 21:05 Respiratory Rate 18 12/23/17 17:53 Blood Pressure 141/73 12/23/17 21:05 O2 Sat by Pulse Oximetry 93 12/23/17 21:05 Oxygen Delivery Oxygen Delivery Nasal Cannula Shortness of Breath/Dyspnea - Differential Diagnosis Likely: acute exacerbation of chronic obstructive airways disease, congestive heart failure, pneumonia, pulmonary embolism - Medical Records Medical records reviewed: Yes I reviewed the patient's medical records. - Lab Data Lab results reviewed: Yes I reviewed the patient's lab results. Result diagrams: 12/23/17 18:29 12/23/17 18:29 Lab Results 12/23/17 12/23/17 12/23/17 Range/Units 18:29 18:29 18:29 WBC 12.0 H (4.3-11.1) K/mcL RBC 5.34 H (3.82-4.97) M/mcL Hgb 15.1 (11.5-15.4) g/dL Hct 43.3 (35.3-44.9) % MCV 81.1 L (83.0-100.0) fL MCH 28.3 (28.0-33.3) pg MCHC 34.9 (31.6-35.5) g/dL RDW 12.2 (11.5-14.5) % Plt Count 279 (140-400) K/mcL MPV 9.5 (9.4-12.4) fL Immature Gran % 0.5 (0-4) % Seg Neutrophils % 55.6 % Lymphocytes % 35.8 % Monocytes % 5.4 % Eosinophils % 2.3 % Basophils % 0.4 % Neutrophils # 6.6 (1.6-8.9) K/mcL Lymphocytes # 4.3 (0.6-4.6) K/mcL Monocytes # 0.7 (0.0-1.3) K/mcL Eosinophils # 0.3 (0.0-0.6) K/mcL Basophils # 0.1 (0.0-0.2) K/mcL D-Dimer (0-500) ng/mLFEU Sodium 135 L (136-145) mEq/L Potassium 3.9 (3.5-5.1) mEq/L Chloride 110 H (98-107) mEq/L Carbon Dioxide 19 L (23-29) mEq/L BUN 18 (6-20) mg/dL Creatinine 0.73 (0.60-1.20) mg/dL Est GFR ( Amer) > 60 (> 60) Est GFR (Non-Af Amer) > 60 (> 60) BUN/Creatinine Ratio 25 (6-26) Glucose 96 (70-105) mg/dL Calculated Osmolality 282 (280-300) Lactic Acid 0.8 (0.5-2.2) mmol/L Calcium 9.0 (8.6-10.3) mg/dL Troponin I (< 0.04) ng/mL B-Natriuretic Peptide (Less than 100) pg/mL 12/23/17 12/23/17 12/23/17 Range/Units 18:29 18:29 18:29 WBC (4.3-11.1) K/mcL RBC (3.82-4.97) M/mcL Hgb (11.5-15.4) g/dL Hct (35.3-44.9) % MCV (83.0-100.0) fL MCH (28.0-33.3) pg MCHC (31.6-35.5) g/dL RDW (11.5-14.5) % Plt Count (140-400) K/mcL MPV (9.4-12.4) fL Immature Gran % (0-4) % Seg Neutrophils % % Lymphocytes % % Monocytes % % Eosinophils % % Basophils % % Neutrophils # (1.6-8.9) K/mcL Lymphocytes # (0.6-4.6) K/mcL Monocytes # (0.0-1.3) K/mcL Eosinophils # (0.0-0.6) K/mcL Basophils # (0.0-0.2) K/mcL D-Dimer 458 (0-500) ng/mLFEU Sodium (136-145) mEq/L Potassium (3.5-5.1) mEq/L Chloride (98-107) mEq/L Carbon Dioxide (23-29) mEq/L BUN (6-20) mg/dL Creatinine (0.60-1.20) mg/dL Est GFR ( Amer) (> 60) Est GFR (Non-Af Amer) (> 60) BUN/Creatinine Ratio (6-26) Glucose (70-105) mg/dL Calculated Osmolality (280-300) Lactic Acid (0.5-2.2) mmol/L Calcium (8.6-10.3) mg/dL Troponin I < 0.03 (< 0.04) ng/mL B-Natriuretic Peptide 21 (Less than 100) pg/mL - Radiology Data Radiology results reviewed: Yes I reviewed the patient's radiology results. Chest X-Ray 12/23/17 17:50 IMPRESSION: Mild pulmonary venous congestion. D/ / Dong Peralta MD / Dong Peralta MD Interpreting Provider: Dong Peralta MD Chest CTA 12/23/17 19:57 IMPRESSION: No evidence of pulmonary embolism or acute pulmonary abnormality. D/ / Malick Clayton MD / Malick Clayton MD Interpreting Provider: Malick Clayton MD - EKG Data EKG attestation: Yes I reviewed and interpreted this EKG. EKG shows normal: Reports: sinus rhythm Rate: Reports: tachycardia (1 10 bpm ID [id number] QRS [address] segment elevations or depressions.) Rhythm: Reports: NSR Interpretation: Reports: no acute changes Attestation Statement - Attestation Attestation: I, Theo Bentley DO, examined this patient [id number] and my medical decision-making was reviewed with Dr. Len Fox, Resident Physician. I agree with the documented findings, disposition and treatment plan as described except to the extent set forth below. Please see my progress notes for details. 37-year-old female presents emergency room after being evaluated in urgent care. Urgent care provider contacted the primary care physician and they recommended coming to the ER for evaluation. Patient currently denying any chest pain or chills cough cold congestion. Denies any headache or vision change. Patient currently is low risk for pulmonary emboli. She was initially tachycardic after walking into the emergency department. Patient is chronically obese. She also has pulmonary related issues and congestive heart failure. Patient is currently denying any chest pain fevers chills nausea vomiting or diarrhea. Denies any headache or vision change. She is not retaining any fluid according to her. Discussion was had with her reviewing her presentation and issues. She currently feels that this is an exacerbation of her asthma secondary to one of her family members having a viral syndrome over the last week. Patient currently denying any trauma or injury. Patient provided with breathing treatments and steroids here in the emergency room. Chest x-ray was reviewed from outside facility on screening laboratory workup here today. Patient has no other acute pathology. Considering she is low risk based on her perc and Wells score but had tachycardia patient will have a d- dimer collected. This d-dimer was less than 500. Low clinical suspicion for pulmonary emboli. Patient is not on any control medications at this time she has no history DVT or blood clots. Physical exam including evaluation of the lungs and heart appear to be unremarkable. She does have some intermittent wheezing on examination. No coarse crackles were noted. Patient has no specific signs of pitting edema. She has no abdominal discomfort or pain. She is alert oriented speaking in full sentences. Laboratory workup was reviewed her troponin and BNP and labs were otherwise unremarkable. Her EKG did not show any acute signs of heart strain or abnormalities or ST segment elevation. Patient clinically has what appears to be an asthma exacerbation. Patient is feeling better after breathing treatments and steroids here. She will be tested prior to leaving our emergency room. Primary care provider was contacted for outpatient evaluation within the next 24 hours. No other acute concerns or issues noted at this time. 2135 The patient is otherwise unremarkable by CT imaging of the chest. Patient will be admitted for hypoxia and increased work of breathing. Respiratory demand is elevated. Patient was stable at this point. Definitive management will be established consultation cardiology and hospitalist management.
[2017-12-23 18:42] LABS: Basophils # 0.1 K/mcL (0.0-0.2); Basophils % 0.4 %; Eosinophils # 0.3 K/mcL (0.0-0.6); Eosinophils % 2.3 %; Hematocrit 43.3 % (35.3-44.9); Hemoglobin 15.1 g/dL (11.5-15.4); Immature Granulocytes % 0.5 % (0-4); Lymphocytes # 4.3 K/mcL (0.6-4.6); Lymphocytes % 35.8 %; Mean Corpuscular HGB Conc 34.9 g/dL (31.6-35.5); Mean Corpuscular Hemoglobin 28.3 pg (28.0-33.3); Mean Corpuscular Volume 81.1 fL (83.0-100.0); Mean Platelet Volume 9.5 fL (9.4-12.4); Monocytes # 0.7 K/mcL (0.0-1.3); Monocytes % 5.4 %; Neutrophils # 6.6 K/mcL (1.6-8.9); Platelet Count 279 K/mcL (140-400); Red Blood Count 5.34 M/mcL (3.82-4.97); Red Cell Distribution Width 12.2 % (11.5-14.5); Segmented Neutrophils % 55.6 %
[2017-12-23 18:55] LABS: BUN/Creatinine Ratio 25 (6-26); Blood Urea Nitrogen 18 mg/dL (6-20); Carbon Dioxide 19 mEq/L (23-29); Chloride 110 mEq/L (98-107); Glucose 96 mg/dL (70-105); Osmolality,Calculated 282 (280-300); Potassium 3.9 mEq/L (3.5-5.1); Sodium 135 mEq/L (136-145); eGFR For African Americans > 60 (> 60); eGFR For Non-African Americans > 60 (> 60)
[2017-12-23] MEDS ORDERED: Naloxone 0.4 MG/ML INJ IVP PRN (20:42)
[2017-12-23] MEDS ORDERED: *HR* Dextrose 50 % in Water (Syg) 50 ML SYRINGE IVP PRN (20:52)
[2017-12-23] MEDS ORDERED: D5% in Water 1,000 ML IVC PRN (20:52)
[2017-12-23] MEDS ORDERED: Dextrose Gel 15 GM/37.5 ML TUBE PO PRN ×2 (20:52)
--- NOTE | 2017-12-23 20:59 | Internal Med History&Physical ---
Date of Encounter: 12/23/17 Time of Encounter: 20:54 Assessment and Plan (1) COPD exacerbation Current visit: Yes Status: Acute 37/female Multiple comorbid issues/problems mentioned below. Worsening shortness of breath for past 3-4 days. Initially change in color of expectoration. Evaluated by our urgent care where her saturation was in mid 80s. Secondary emergency room for further evaluation. Patient is still active smoker. Nuclear stress test: 08/2017: Negative for ischemia, gated ejection fraction 72% . Poor quality of images. Echocardiogram: 08/2017: Ejection fraction 55-60%. Mitral valve not well visualized. Moderate mitral stenosis. 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 Obesity hypoventilation syndrome cannot be ruled out. Plan: Admit as inpatient. Cardiac diet. Serial troponin. Intravenous ceftriaxone 1 g every 24 hours. Intravenous azithromycin every 24 hours. Intravenous Solu-Medrol 40 mg every 8 hours. Inhaled bronchodilators every 4 hours. close monitoring of the respiratory status. When necessary BiPAP Patient is scheduled to undergo MALLORY with cardiology department on this coming Friday. Of note: I examined this patient at 8:35 PM today in emergency room #21. Patient's daughter was present next to her. Plan discussed with the patient and her daughter. All questions answered. (2) Tobacco abuse Current visit: No Status: Chronic Patient is still active smoker. I discussed with the patient more than 10 minutes regarding cessation of smoking. Patient promised that she will think about it. (3) Morbid obesity with BMI of 50.0-59.9, adult Current visit: No Status: Chronic Patient is morbidly obese. Patient will definitely get benefit from outpatient bariatric surgery. (4) Prediabetes Current visit: No Status: Acute Last hemoglobin A1c: 5.9. Metformin on hold. We will follow the recommendations from subtendinous insulin order set. (5) DVT prophylaxis Current visit: No Status: Acute Heparin Medical decision making: This patient has a moderate to severe risk of worsening in spite of being on appropriate medication due to the underlying multiple comorbid conditions. Internal Medicine - H&P: HPI Chief complaint: Shortness of breath Admitted From: Emergency Dept Plans for Post Hospital Care: Home History of present illness: PCP: Dr Michael Salazar Loader Magazine Grinder : Dr Romero Brief PMH: Prediabetes, hypertension, anxiety, COPD, current active smoker, morbid obesity. History of present medical illness: Patient was complaining of worsening shortness of breath on minimal exertion for the past 3-4 days. It started initially as difficulty breathing on minimal exertion. Patient was complaining of changing her color of expectoration. Initially expectoration was clear but within 24 hours it turned out to be green. Patient called her PCPs office but was unable to get an appointment. Patient went to urgent care where it was noted that her oxygen saturation was in the 80s. She was given a breathing treatment and was sent to the emergency room for further evaluation. Patient denies any chest pain, nausea, vomiting, abdominal pain, dizziness and diarrhea. Workup in the emergency room: Patient was evaluated in the emergency room. Basic labs were drawn. X-ray chest was done which was not suggestive of any acute cardiorespiratory process. CBC was suggestive of elevated white blood cell count. Troponins were negative. D-dimer was marginally elevated for her age. Noted that CTA has been ordered from the emergency room. Reason for admission: Acute exacerbation of chronic obstructive pulmonary disease. The patient who has multiple comorbid conditions. This is not a acute respiratory failure. Family history: Noncontributory at this time Past Med Surg Social Fam HX - Past Medical History Medical history: asthma, CHF Psychiatric history: anxiety, depression - Past Surgical History Surgical History: (2002), cholecystectomy (2006) - Social History Smoking Status: Current every day smoker Smokeless Tobacco Status: No Alcohol use: none Drug use: none - Family History Father Living Status: Hx Family Cardiac Disorders: Yes Hx Family Respiratory Disorders: No Hx Family Cancer: Yes (bone and breast) Hx Family GI Disorders: Yes Hx Family Endocrine Disorder: No Hx Family Neuromuscular Disorders: No Hx Family Neurologic Disorders: No Hx Family HEENT Disorders: No Hx Family Autoimmune Disorders: No Internal Medicine - H&P: Meds Sertraline [Zoloft] 50 mg PO HS 01/28/16 [History] Albuterol Sulfate [Proair Hfa] 2 puff IH Q6H PRN 05/23/16 [History] clonazePAM [Klonopin] 0.5 mg PO BID 08/08/16 [History] Albuterol Neb [Proventil Neb] 2.5 mg IH TID 08/14/17 [History] Furosemide [Lasix] 40 mg PO DAILY 08/14/17 [History] Ipratropium Neb [Atrovent Neb] 0.5 mg IH QID PRN 08/14/17 [History] Mometasone/Formoterol [Dulera 200 Mcg/5 Mcg Inhaler] 2 puff IH BID 08/14/17 [ History] Montelukast [Singulair] 10 mg PO QPM 08/14/17 [History] Iron Ps Cmplx/Vit B12/FA [Poly-Iron 150 Forte Capsule] 1 each PO DAILY 12/23/17 [History] Tiotropium [place] [Spiriva Respimat] 2 puff IH DAILY 12/23/17 [History] 3 Allergy/AdvReac Type Severity Reaction Status Date / Time levofloxacin [From Levaquin] Allergy Anaphylaxis Verified 09/03/17 12:21 Penicillins [PCN] Allergy Anaphylaxis Verified 09/03/17 12:21 All Systems PM: A 10-system review of systems was performed and is negative for pertinent findings except as documented above in the HPI. - Constitutional Constitutional: no chills, no fever(s), no night sweats - EENT Eyes: no change in vision, no discharge, no pain, no photophobia Ears: no ear discharge, no ear pain, no tinnitus Nose, mouth and throat: no dysphagia, no nasal discharge, no neck pain, no sore throat - Cardiovascular Cardiovascular ROS IM: diaphoresis, dyspnea, no chest pain, no lightheadedness, no palpitations, no syncope - Respiratory Respiratory: cough, dyspnea, excessive phlegm production, change in phlegm color , no wheezing - Gastrointestinal Gastrointestinal: no abdominal pain, no diarrhea, no hematemesis, no hematochezia, no melena, no nausea, no vomiting - Genitourinary Genitourinary: no change in urinary stream, no dysuria, no flank pain, no hematuria - Musculoskeletal Musculoskeletal ROS IM: no numbness, no tingling - Integumentary Integumentary IM: no rash, no unusual bruising - Neurological Neurological ROS: no confusion, no convulsions, no focal weakness, no numbness, no tingling, no tremor(s) - Hematologic/Lymphatic Hematologic/Lymphatic: no easy bruising - Constitutional Vitals: Temp Pulse Resp BP Pulse Ox 97.9 F 115 18 165/97 97 12/23/17 17:33 12/23/17 17:53 12/23/17 17:53 02/13/18 17:53 12/23/17 17:56 General appearance: Present: A&O X 3, morbidly obese, pleasant, answers questions appropriately - Head Head exam: Present: atraumatic, normocephalic - Eye Eye exam: Present: PERRL, conjuntiva pink, sclera anicteric Pupils: Present: PERRL - Neck Neck exam general surgery: Present: supple, trachea midline. Absent: lymphadenopathy - Respiratory Respiratory exam: Present: CTAB. Absent: accessory muscle use, rales, rhonchi, wheezes - Cardiovascular Cardiovascular exam: Present: RRR, +S1, +S2. Absent: diastolic murmur, gallop, rubs, systolic murmur - GI/Abdominal GI/Abdominal exam: Present: normal bowel sounds, soft, no peritoneal signs. Absent: distended, tenderness - Extremities Exam Extremities exam: Present: warm, radial pulses palpable and symmetrical. Absent : calf tenderness, cyanotic, pedal edema - Neurological Exam Neurological exam: Present: CN II-XII intact, oriented X3, no focal deficits. Absent: pronater drift, facial droop, speech deficit - Skin Skin exam: Present: dry, intact Internal Med - H&P Results - Labs CBC & Chem 7: 12/23/17 18:29 12/23/17 18:29 Labs: Short CBC 12/23/17 Range/Units 18:29 WBC 12.0 H (4.3-11.1) K/mcL Hgb 15.1 (11.5-15.4) g/dL Hct 43.3 (35.3-44.9) % Plt Count 279 (140-400) K/mcL Neutrophils # 6.6 (1.6-8.9) K/mcL BMP 12/23/17 18:29 Sodium 135 L Potassium 3.9 Chloride 110 H Carbon Dioxide 19 L BUN 18 Creatinine 0.73 Glucose 96 Calcium 9.0 Cardiac Enzymes 12/23/17 Range/Units 18:29 Troponin I < 0.03 (< 0.04) ng/mL - Impressions ITS Impressions Chest X-Ray 12/23/17 17:50 IMPRESSION: Mild pulmonary venous congestion. D/ / Dong Peralta MD / Dong Peralta MD Interpreting Provider: Dong Prealta MD
[2017-12-23] MEDS: Ipratropium/Albuterol Neb 3 ML IH SCH ×2 (22:30→23:50)
[2017-12-24] MEDS: Azithromycin 500 MG in D5% in Water 250 ML IVPB SCH ×2 (00:14→21:27)
[2017-12-24] MEDS: cefTRIAXone 1,000 MG in Water for inj. (sterile) 20 ML 10 ML IVPB SCH ×2 (00:14→22:54)
[2017-12-24] MEDS: clonazePAM 0.5 MG TABLET PO SCH ×3 (00:15→21:27)
[2017-12-24] MEDS: *HR* Heparin 5,000 UNIT/ML VIAL SQ SCH ×4 (00:15→21:28)
[2017-12-24] MEDS: Acetaminophen 325 MG TABLET PO PRN ×2 (01:24→08:32)
[2017-12-24] MEDS: MethylPREDNISolone 40 MG/ML VIAL IVP SCH ×3 (01:24→17:05)
[2017-12-24 01:48] LABS: Adenovirus Not Detected (Not Detect); Bordetella Pertussis Not Detected (Not Detect); Chlamydophila pneumoniae Not Detected (Not Detect); Coronavirus 229E Not Detected (Not Detect); Coronavirus HKU1 Not Detected (Not Detect); Coronavirus NL63 Not Detected (Not Detect); Coronavirus OC43 Not Detected (Not Detect); Human Metapneumovirus Not Detected (Not Detect); Human Rhinovirus/Enterovirus Not Detected (Not Detect); Influenza A Subtype 2009 H1 Not Detected (Not Detect); Influenza A Untypeable Not Detected (Not Detect); Influenza B Not Detected (Not Detect); Mycoplasma pneumoniae Not Detected (Not Detect); Parainfluenza Virus 1 Not Detected (Not Detect); Parainfluenza Virus 2 Not Detected (Not Detect); Parainfluenza Virus 3 Not Detected (Not Detect); Parainfluenza Virus 4 Not Detected (Not Detect); Respiratory Syncytial Virus Not Detected (Not Detect)
[2017-12-24] MEDS: Ipratropium/Albuterol Neb 3 ML IH SCH ×6 (04:16→20:28)
[2017-12-24 04:18] LABS: Basophils % 0.2 %; Hematocrit 44.9 % (35.3-44.9); Hemoglobin 14.7 g/dL (11.5-15.4); Immature Granulocytes % 0.8 % (0-4); Lymphocytes # 0.8 K/mcL (0.6-4.6); Lymphocytes % 6.8 %; Mean Corpuscular HGB Conc 32.7 g/dL (31.6-35.5); Mean Corpuscular Hemoglobin 27.2 pg (28.0-33.3); Mean Platelet Volume 9.7 fL (9.4-12.4); Monocytes % 0.4 %; Neutrophils # 10.4 K/mcL (1.6-8.9); Platelet Count 276 K/mcL (140-400); Red Blood Count 5.41 M/mcL (3.82-4.97); Segmented Neutrophils % 91.8 %
[2017-12-24 04:24] LABS: Prothrombin Time 11.2 Seconds (9.4-12.1)
[2017-12-24 04:27] LABS: Activated Partial Thrombo Time 30.1 Seconds (26.0-36.0)
[2017-12-24 04:45] LABS: Alanine Aminotransferase 18 Units/L (7-52); Albumin 3.8 g/dL (3.5-5.7); Albumin/Globulin Ratio 1.2 (1.1-2.2); Alkaline Phosphatase 85 Units/L (34-104); Aspartate Amino Transferase 12 Units/L (13-39); BUN/Creatinine Ratio 22 (6-26); Bilirubin,Total 0.3 mg/dL (0.3-1.0); Blood Urea Nitrogen 20 mg/dL (6-20); Calcium 9.4 mg/dL (8.6-10.3); Carbon Dioxide 19 mEq/L (23-29); Chloride 106 mEq/L (98-107); Chol/HDL Ratio 5.2 (0-4.9); Cholesterol 206 mg/dL (< 200); Globulin 3.3 g/dL (2.4-3.5); Glucose 310 mg/dL (70-105); HDL Cholesterol 40 mg/dL (40-59); LDL Cholesterol,Calculated 138 mg/dL (0-99); Magnesium 2.2 mg/dL (1.6-2.6); Osmolality,Calculated 290 (280-300); Phosphorous 2.3 mg/dL (2.7-4.5); Potassium 4.4 mEq/L (3.5-5.1); Sodium 133 mEq/L (136-145); Total Protein 7.1 g/dL (6.4-8.9); Triglycerides 140 mg/dL (< 150); eGFR For African Americans > 60 (> 60); eGFR For Non-African Americans > 60 (> 60)
[2017-12-24] MEDS: Insulin LISPRO 300 UNITS/3 ML VIAL SQ SCH ×3 (08:21→17:04)
--- NOTE | 2017-12-24 11:42 | Electrocardiograph Report ---
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
[2017-12-24] MEDS ORDERED: Ondansetron ODT 4 MG TAB.RAPDIS SL PRN (11:55)
[2017-12-24] MEDS: Furosemide 40 MG TABLET PO SCH (12:21)
[2017-12-24] MEDS ORDERED: Acetaminophen/Butalbital/CaffeineTABLET PO ONE (14:21)
[2017-12-24] MEDS: Loratadine 10 MG TABLET PO SCH (14:37)
[2017-12-24] MEDS: Fluticasone Propionate Nasal 50 MCG/SPRAY BOTTLE NS SCH (17:04)
--- NOTE | 2017-12-24 17:48 | Internal Med Progress Note ---
Date of Encounter: 12/24/17 Time of Encounter: 13:15 - Assessment and plan (1) COPD exacerbation Current Visit: Yes Status: Acute Assessment and plan: Patient reports worsening shortness of breath and nonproductive cough for 3-4 days. She denies any fever, chills, body aches. Patient initially went to urgent care, room air sats were in the mid 80s. She was sent to the emergency room for further evaluation and admitted. Patient still smokes approximately 5 cigarettes a day. Lungs are clear and diminished throughout. She has no increase in peripheral edema above her baseline. She is in no distress on 2 L oxygen by nasal cannula. Chest x-ray is negative. Patient normally does nebulizers at home every 3 hours, I will change the frequency, I will decrease IV Solu-Medrol at this time. We will add Mucinex, Claritin and Flonase for frontal sinus tenderness, no URI symptoms. Continue Zithromax 500 mg IV daily, ceftriaxone 1 g IV daily, Solu-Medrol dose decreased to 40 mg IV daily from 120 mg IV daily. Duonebs every 3 hours per patient's home schedule Chest X-Ray 12/23/17 17:50 IMPRESSION: Mild pulmonary venous congestion. D/ / Dong Peralta MD / Dong Peralta MD Interpreting Provider: Dong Peralta MD Chest CTA 12/23/17 19:57 IMPRESSION: No evidence of pulmonary embolism or acute pulmonary abnormality. D/ / Malick Clayton MD / Malick Clayton MD Interpreting Provider: Malick Clayton MD (2) Acute and chronic respiratory failure Current Visit: No Status: Acute Assessment and plan: Patient is at her baseline oxygen use. Titrate as needed to maintain sats greater than 92%. Qualifiers: Respiratory failure complication: unspecified whether with hypoxia or hypercapnia Qualified Code(s): J96.20 - Acute and chronic respiratory failure , unspecified whether with hypoxia or hypercapnia (3) GERD (gastroesophageal reflux disease) Current Visit: Yes Status: Chronic Assessment and plan: Chronic. Continue home medications. Qualifiers: Esophagitis presence: esophagitis presence not specified Qualified Code(s) : K21.9 - Gastro-esophageal reflux disease without esophagitis (4) Morbid obesity with BMI of 50.0-59.9, adult Current Visit: Yes Status: Chronic Assessment and plan: Chronic. Implement lifestyle changes. (5) Obesity hypoventilation syndrome Current Visit: Yes Status: Chronic (6) Obstructive sleep apnea Current Visit: Yes Status: Chronic Assessment and plan: BiPAP at night. (7) Tobacco abuse Current Visit: Yes Status: Chronic Assessment and plan: The patient continues to smoke, states that she normally smokes 5 cigarettes a day. She denies need for nicotine replacement therapy, however I will add nicotine patches when necessary. Smoking cessation counseling completed. - Time Spent With Patient less than 15 minutes - Subjective Interval history: Patient was seen and evaluated at 1315. Patient reports dry, cracking cough. She reports that she only smokes about 5 cigarettes a day, I will NicoDerm patch as well as Mucinex for when necessary use. Patient reports that she has frontal headache since last night. She does have tenderness to palpation over frontal sinuses. I also added Claritin and Flonase, Fioricet 1. She does not have any neurological deficits, no vision changes no neck tenderness no fever or chills, no body aches. She reports some nasal congestion at times. We will continue to evaluate, if not resolved will do CT head. She denies any chest pain or shortness of breath at this time. She has abdominal pain, nausea, vomiting, diarrhea. - Constitutional Vitals: Temp Pulse Resp BP Pulse Ox 97.8 F 99 18 106/55 92 12/24/17 15:46 12/24/17 15:46 12/24/17 16:10 12/24/17 15:46 12/24/17 16:10 General appearance: Present: cooperative, A&O X 3, morbidly obese, pleasant, no acute distress, answers questions appropriately - Head Head exam: Present: atraumatic, normal inspection, normocephalic - Eye Eye exam: Present: normal appearance, PERRL, conjuntiva pink, sclera anicteric. Absent: conjunctival injection, nystagmus Pupils: Present: PERRL - Neck Neck exam general surgery: Present: normal inspection, supple, trachea midline. Absent: lymphadenopathy, tenderness - Respiratory Respiratory exam: Present: CTAB. Absent: accessory muscle use, chest wall tenderness, rales, respiratory distress, rhonchi, wheezes - Cardiovascular Cardiovascular exam: Present: RRR, +S1, +S2. Absent: diastolic murmur, gallop, rubs, systolic murmur - GI/Abdominal GI/Abdominal exam: Present: normal bowel sounds, soft, no peritoneal signs. Absent: distended, hepatomegaly, tenderness - Extremities Exam Extremities exam: Present: normal capillary refill, normal inspection, warm, radial pulses palpable and symmetrical. Absent: calf tenderness, cyanotic, pedal edema, tenderness - Neurological Exam Neurological exam: Present: alert, oriented X3, no focal deficits. Absent: altered, facial droop, speech deficit - Skin Skin exam: Present: dry, intact, normal color, warm. Absent: rash Internal Medicine: Result - Labs CBC & Chem 7: 12/24/17 03:34 12/24/17 03:34 Labs: Short CBC 12/24/17 Range/Units 03:34 WBC 11.3 H (4.3-11.1) K/mcL Hgb 14.7 (11.5-15.4) g/dL Hct 44.9 (35.3-44.9) % Plt Count 276 (140-400) K/mcL Neutrophils # 10.4 H (1.6-8.9) K/mcL BMP 12/24/17 03:34 Sodium 133 L Potassium 4.4 Chloride 106 Carbon Dioxide 19 L BUN 20 Creatinine 0.93 Glucose 310 H Calcium 9.4 Cardiac Enzymes 12/24/17 Range/Units 03:34 Troponin I < 0.03 (< 0.04) ng/mL Liver Function 12/24/17 Range/Units 03:34 Total Bilirubin 0.3 (0.3-1.0) mg/dL AST 12 L (13-39) Units/L ALT 18 (7-52) Units/L Alkaline Phosphatase 85 (34-104) Units/L Albumin 3.8 (3.5-5.7) g/dL - ABG Interpretation ABG results: PT/INR, D-dimer PT 11.2 Seconds (9.4-12.1) 12/24/17 03:34 D-Dimer 458 ng/mLFEU (0-500) 12/23/17 18:29 Consult Discharge Plan - Plan Referrals: Michael Salazar MD [Primary Care Provider] -
[2017-12-24] MEDS ORDERED: Nicotine 7 MG PATCH.TD24 TD PRN (17:58)
[2017-12-24] MEDS ORDERED: Acetaminophen/Butalbital/CaffeineTABLET PO PRN (21:43)
[2017-12-24] MEDS ORDERED: Insulin LISPRO 300 UNITS/3 ML VIAL SQ SCH (21:45)
[2017-12-25] MEDS: Ipratropium/Albuterol Neb 3 ML IH SCH ×5 (00:24→15:35)
[2017-12-25] MEDS: *HR* Heparin 5,000 UNIT/ML VIAL SQ SCH ×2 (06:03→14:14)
[2017-12-25 06:49] LABS: Basophils % 0.1 %; Hematocrit 40.1 % (35.3-44.9); Hemoglobin 13.4 g/dL (11.5-15.4); Immature Granulocytes % 0.8 % (0-4); Lymphocytes # 1.8 K/mcL (0.6-4.6); Lymphocytes % 8.6 %; Mean Corpuscular HGB Conc 33.4 g/dL (31.6-35.5); Mean Corpuscular Hemoglobin 28.1 pg (28.0-33.3); Mean Corpuscular Volume 84.1 fL (83.0-100.0); Mean Platelet Volume 9.8 fL (9.4-12.4); Monocytes # 0.8 K/mcL (0.0-1.3); Platelet Count 272 K/mcL (140-400); Red Blood Count 4.77 M/mcL (3.82-4.97); Segmented Neutrophils % 86.5 %
[2017-12-25 07:22] LABS: BUN/Creatinine Ratio 30 (6-26); Blood Urea Nitrogen 26 mg/dL (6-20); Carbon Dioxide 21 mEq/L (23-29); Chloride 106 mEq/L (98-107); Glucose 289 mg/dL (70-105); Osmolality,Calculated 291 (280-300); Potassium 4.2 mEq/L (3.5-5.1); Sodium 133 mEq/L (136-145); eGFR For African Americans > 60 (> 60); eGFR For Non-African Americans > 60 (> 60)
[2017-12-25] MEDS ORDERED: MethylPREDNISolone 40 MG/ML VIAL IVP SCH (09:00)
[2017-12-25] MEDS: Insulin LISPRO 300 UNITS/3 ML VIAL SQ SCH ×3 (09:10→17:27)
[2017-12-25] MEDS: Fluticasone Propionate Nasal 50 MCG/SPRAY BOTTLE NS SCH (09:11)
[2017-12-25] MEDS: clonazePAM 0.5 MG TABLET PO SCH (09:11)
[2017-12-25] MEDS: Loratadine 10 MG TABLET PO SCH (09:11)
[2017-12-25] MEDS: Furosemide 40 MG TABLET PO SCH (09:11)
[2017-12-25 16:15] VITALS: BP 122/54
--- NOTE | 2017-12-25 17:57 | Discharge Summary ---
Date of Encounter: 12/25/17 Time of Encounter: 11:20 - Discharge Diagnosis (1) COPD exacerbation Priority: Primary Status: Acute Comments: Patient presented to the emergency department with increasing shortness of breath and nonproductive cough for 3-4 days. She denied any fever, chills, body aches, Andreas's. Patient was sent to the emergency department for evaluation of hypoxia after presenting to urgent care with room air sats in the mid 80s. Patient's lungs were clear and diminished throughout, faint wheezing heard at bilateral bases today. She has no increase of her peripheral edema above her normal baseline. She is in no distress. Chest x-ray is negative. Patient normally does nebulizers at home every 3 hours, will continue at home patient was requested a prescription, which will be given. She will also be sent home with prescriptions for Mucinex, Claritin, Flonase frontal sinus tenderness. Patient has no URI symptoms. Patient will be sent home with Zithromax 250 mg by mouth daily and a steroid taper. Chest X-Ray 12/23/17 17:50 IMPRESSION: Mild pulmonary venous congestion. D/ / Dong Peralta MD / Dong Peralta MD Interpreting Provider: Dong Peralta MD Chest CTA 12/23/17 19:57 IMPRESSION: No evidence of pulmonary embolism or acute pulmonary abnormality. D/ / Malick Clayton MD / Malick Clayton MD Interpreting Provider: Malick Clayton MD (2) Acute and chronic respiratory failure Priority: Secondary Status: Acute Comments: Patient is at her baseline oxygen use. She has home O2 and, titrate as needed maintain sats greater than 92%. Qualifiers: Respiratory failure complication: unspecified whether with hypoxia or hypercapnia Qualified Code(s): J96.20 - Acute and chronic respiratory failure , unspecified whether with hypoxia or hypercapnia (3) GERD (gastroesophageal reflux disease) Priority: Secondary Status: Chronic Comments: Patient asymptomatic. This is chronic. She will continue home medications after discharge. Qualifiers: Esophagitis presence: esophagitis presence not specified Qualified Code(s) : K21.9 - Gastro-esophageal reflux disease without esophagitis (4) Morbid obesity with BMI of 50.0-59.9, adult Priority: Secondary Status: Chronic Comments: Chronic. Implement lifestyle changes. (5) Obesity hypoventilation syndrome Priority: Secondary Status: Chronic (6) Obstructive sleep apnea Priority: Secondary Status: Chronic Comments: BiPAP at night. (7) Tobacco abuse Priority: Secondary Status: Chronic Comments: Patient states that she continues to smoke 5 cigarettes a day. She has declined any nicotine replacement therapy. States that she has not had any cravings and here and will be able to quit cold turkey when she gets home. - Discharge Medications Prescriptions: Ipratropium/Albuterol Neb [Duoneb] 3 ml IH [id number] PRN #30 inhsol PRN Reason: Wheezing Albuterol Neb [Proventil Neb] 2.5 mg IH TID #30 inhsol Azithromycin [Zithromax] 250 mg PO DAILY #5 tablet Fluticasone Propionate Nasal [Flonase] 50 mcg NS DAILY #1 bottle GuaiFENesin ER [Mucinex] 600 mg PO BID PRN #60 tbbp.12hr PRN Reason: Cough Loratadine [Claritin] 10 mg PO DAILY #30 tablet predniSONE [PredniSONE] 10 mg PO DAILY #31 tablet Home Medications: Sertraline [Zoloft] 50 mg PO HS 01/28/16 [History] Albuterol Sulfate [Proair Hfa] 2 puff IH Q6H PRN 05/23/16 [History] clonazePAM [Klonopin] 0.5 mg PO BID 08/08/16 [History] Furosemide [Lasix] 40 mg PO DAILY 08/14/17 [History] Ipratropium Neb [Atrovent Neb] 0.5 mg IH QID PRN 08/14/17 [History] Mometasone/Formoterol [Dulera 200 Mcg/5 Mcg Inhaler] 2 puff IH BID 08/14/17 [ History] Montelukast [Singulair] 10 mg PO QPM 08/14/17 [History] Iron Ps Cmplx/Vit B12/FA [Poly-Iron 150 Forte Capsule] 1 each PO DAILY 12/23/17 [History] Tiotropium [place] [Spiriva Respimat] 2 puff IH DAILY 12/23/17 [History] Albuterol Neb [Proventil Neb] 2.5 mg IH TID #30 inhsol 12/25/17 [Rx] Azithromycin [Zithromax] 250 mg PO DAILY #5 tablet 12/25/17 [Rx] Fluticasone Propionate Nasal [Flonase] 50 mcg NS DAILY #1 bottle 12/25/17 [Rx] GuaiFENesin ER [Mucinex] 600 mg PO BID PRN #60 tbbp.12hr 12/25/17 [Rx] Ipratropium/Albuterol Neb [Duoneb] 3 ml IH [id number] PRN #30 inhsol 12/25/17 [Rx] Loratadine [Claritin] 10 mg PO DAILY #30 tablet 12/25/17 [Rx] predniSONE [PredniSONE] 10 mg PO DAILY #31 tablet 12/25/17 [Rx] Allergies/Adverse Reactions: 3 Allergy/AdvReac Type Severity Reaction Status Date / Time levofloxacin [From Levaquin] Allergy Anaphylaxis Verified 09/03/17 12:21 Penicillins [PCN] Allergy Anaphylaxis Verified 09/03/17 12:21 Date of admission: 12/23/17 22:49 Primary care physician: Michael Salazar MD Discharging clinician: Zoey Rader Anticipated date of discharge: 12/25/17 - Patient Status Disposition: Home, Self-Care Condition: Fair Functional capacity at discharge: independent ambulation Overall status at discharge: patient is progressing back to baseline - Discharge Instructions Follow Up With: Michael Salazar MD [Primary Care Provider] - Additional Instructions: Follow up with your PCP in the next 7-10 days. Return to the ER as needed for any other problems or concerns. Return to work on Friday 12/29 REturn to your normal diet and activities as tolerated. Your prescriptions have been called into [facility] Take the rest of your medications as you normally would. - Diet and Activity Activity: increase activity as tolerated Diet: advance to your usual diet Hospital course: Ms. Sweet is a 37 year old female with medical history significant for obesity , smoking, hypertension, GERD diabetes, tobacco abuse. Patient presented with COPD exacerbation. She has improved significantly with IV steroids, antibiotics , Mucinex. He has faint wheezing in posterior lung aldana, significant improvement from arrival. Patient will be sent home with prednisone taper, Zithromax, Mucinex Claritin and Flonase. Her vitals are stable, labs are stable and within normal limits. He states that she feels better and is ready to go home. She has 2 daughters who will be with her and be able to assist her. Patient has leukocytosis, most likely reactive to steroids. Patient is stable and appropriate for discharge. Time spent discussing smoking cessation with patient: 3 to 10 minutes - Time Spent with Patient Total time spent providing and/or coordinating discharge services: Less than 30 minutes - Constitutional Vitals: Temp Pulse Resp BP Pulse Ox 98.1 F 106 18 122/54 90 12/25/17 16:11 12/25/17 16:11 12/25/17 16:11 12/25/17 16:11 12/25/17 16:11 General appearance: Present: cooperative, A&O X 3, morbidly obese, pleasant, no acute distress, answers questions appropriately - Head Head exam: Present: atraumatic, normal inspection, normocephalic - Eye Eye exam: Present: normal appearance, conjuntiva pink, sclera anicteric - Neck Neck exam general surgery: Present: supple, trachea midline. Absent: lymphadenopathy, tenderness - Respiratory Respiratory exam: Present: decreased breath sounds, CTAB, wheezes. Absent: accessory muscle use, chest wall tenderness, rales, rhonchi Additional comments: Pain wheezing heard in bilateral bases. - Cardiovascular Cardiovascular exam: Present: RRR, +S1, +S2. Absent: diastolic murmur, gallop, rubs, systolic murmur - GI/Abdominal GI/Abdominal exam: Present: distended, normal bowel sounds, soft. Absent: tenderness - Extremities Exam Extremities exam: Present: normal capillary refill, normal inspection, warm, radial pulses palpable and symmetrical. Absent: calf tenderness, cyanotic, pedal edema, tenderness - Neurological Exam Neurological exam: Present: alert, oriented X3, no focal deficits. Absent: facial droop, speech deficit - Skin Skin exam: Present: dry, intact, normal color, warm. Absent: rash
== END 2017-12-25 18:38 | disposition home or self-care (01) | DRG 140 ==
LOC: EMEROO 17:30 → 3BNU 22:49 → SUATTDRO 22:49 → 3BNU 22:56
PROVIDERS: ADMIT Internal Medicine; ATTEND Internal Medicine

== ENCOUNTER 2018-04-16 18:14 | Inpatient (IN) ==
[2018-04-16] MEDS ORDERED: 0.9 % Sodium Chloride 1,000 ML IVC ONE (18:21)
[2018-04-16] MEDS ORDERED: Ipratropium/Albuterol Neb 3 ML IH ONE (18:21)
[2018-04-16] MEDS ORDERED: methylPREDNISolone 125 MG/2 ML VIAL IVP ONE (18:33)
--- NOTE | 2018-04-16 18:36 | Emergency Department Note ---
Disposition Clinical Impression: Acute respiratory failure with hypoxemia Asthma with exacerbation Qualifiers: Asthma severity: severe Asthma persistence: persistent Qualified Code(s): J45.51 - Severe persistent asthma with (acute) exacerbation Disposition: Still a Patient Condition: Undetermined Time of Disposition: 18:40 SOB HPI - General Chief Complaint: ED Shortness of Breath/Dyspnea Stated Complaint: TOREY (Chronic Asthma) Time Seen by Provider: 04/16/18 18:20 Source: patient Mode of arrival: ambulatory Limitations: no limitations Nursing Notes Reviewed: Yes Vital Signs Reviewed: Yes - History of Present Illness Patient is a 37-year-old female with a history of severe persistent asthma who presents to [facility] ED with a chief complaint of difficulty breathing. Patient has had worsening symptoms over the last 5 days. She was seen by her primary care physician a few days ago for asthma exacerbation. She has been on outpatient steroids. She has also been doing her on breathing treatments at home every 3 hours. States she has been getting worse. Denies any prior history of intubations for asthma but she has been admitted to the ICU before. Upon presentation here, she does have conversational dyspnea. She is diffusely wheezy bilaterally. She does complain of some chest tightness due to the breathing. Denies any nausea, vomiting, abdominal pain, problems with urination or bowel movements. She does have a fever today at the primary care's office of 102. Patient states she has been using more and more oxygen over the last several days. She usually weans herself off after each exacerbation, however she has not needed her oxygen every day for the last 5 days and is up to 5 L. Pt Subjective Complaint: shortness of breath Onset (ago): day(s) (5) Severity: severe Consistency/Duration: gradually worsening Improves with: nothing Worsens with: nothing Known history of: asthma Associated symptoms: Reports: wheezing. Denies: chest pain, fever, cough, nausea/vomiting, abdominal pain Treatment prior to arrival: oxygen (5L) Cough present: Yes Cough Description: Involuntary Cough Frequency: Intermittent Sputum production: No Sputum Amount: None - Related Data Home oxygen amount: 3 liters Home Medications Medication Instructions Recorded Confirmed Sertraline [Zoloft] 50 mg PO HS 01/28/16 12/23/17 Albuterol Sulfate [Proair Hfa] 2 puff IH Q6H PRN 05/23/16 12/23/17 clonazePAM [Klonopin] 0.5 mg PO BID 08/08/16 12/23/17 Furosemide [Lasix] 40 mg PO DAILY 08/14/17 12/23/17 Ipratropium Neb [Atrovent Neb] 0.5 mg IH QID PRN 08/14/17 12/23/17 Mometasone/Formoterol [Dulera 200 2 puff IH BID 08/14/17 12/23/17 Mcg/5 Mcg Inhaler] Montelukast [Singulair] 10 mg PO QPM 08/14/17 12/23/17 Iron Ps Cmplx/Vit B12/FA 1 each PO DAILY 12/23/17 12/23/17 [Poly-Iron 150 Forte Capsule] Tiotropium [place] [Spiriva 2 puff IH DAILY 12/23/17 12/23/17 Respimat] Previous Rx's Medication Instructions Recorded Albuterol Neb [Proventil Neb] 2.5 mg IH TID #30 inhsol 12/25/17 Azithromycin [Zithromax] 250 mg PO DAILY #5 tablet 12/25/17 Fluticasone Propionate Nasal 50 mcg NS DAILY #1 bottle 12/25/17 [Flonase] GuaiFENesin ER [Mucinex] 600 mg PO BID PRN #60 tbbp.12hr 12/25/17 Ipratropium/Albuterol Neb [Duoneb] 3 ml IH [id number] PRN #30 inhsol 12/25/17 Loratadine [Claritin] 10 mg PO DAILY #30 tablet 12/25/17 predniSONE [PredniSONE] 10 mg PO DAILY #31 tablet 12/25/17 Allergies Allergy/AdvReac Type Severity Reaction Status Date / Time levofloxacin [From Levaquin] Allergy Anaphylaxis Verified 09/03/17 12:21 Penicillins [PCN] Allergy Anaphylaxis Verified 09/03/17 12:21 All systems ED: reviewed and negative except as stated. Past Medical History - Past Medical History Attestation: Yes The following information was validated with the patient. Source: patient Medical history: Reports: asthma, CHF, COPD, diabetes, GERD Surgical history: Reports: , cholecystectomy Psychiatric history: Reports: anxiety, depression GARAGE DOOR TECHNICIAN history: Reports: no GARAGE DOOR TECHNICIAN history, bilateral tubal ligation - Social History Smoking Status: Current every day smoker Smokeless Tobacco Status: No Alcohol use: Reports: none Drug use: Reports: none Physical Exam - General Limitations: no limitations General appearance: alert, in distress - Head Head exam: atraumatic, normocephalic, normal inspection - Eye Eye exam: Present: normal appearance, EOMI - ENT ENT exam: normal exam, normal oropharynx, mucous membranes moist - Neck Neck exam: Present: normal inspection, full ROM, trachea midline - Chest Chest inspection: Present: normal inspection, symmetric chest wall rise - Respiratory Respiratory exam: Present: wheezes (diffusely b/l) - Cardiovascular Cardiovascular exam: Present: normal rhythm, tachycardia - Abdominal Exam Abdominal exam: Present: soft, Non-Tender. Absent: tenderness, distention, guarding, rebound, rigidity - Extremities Exam Extremities exam: Present: normal inspection, full ROM. Absent: tenderness, pedal edema - Back Exam Back exam: Present: normal inspection, full ROM. Absent: tenderness - Neurological Exam Neurological exam: Present: alert, oriented X3 - Psychiatric Psychiatric exam: Present: normal affect, normal mood - Skin Skin exam: Present: warm, dry, intact, normal color Course Course Narrative: Patient seen and examined. Patient with severe asthma exacerbation. She is wheezing diffusely and has increased work of breathing. She is to With conversational dyspnea. Respiratory therapy called to give a triple DuoNeb treatment and to bring the BiPAP over. Patient states last time she was placed on CPAP and this helped tremendously. Also ordered 2 g of magnesium and 125 mg of Solu-Medrol. Cardiopulmonary workup initiated. Suspect patient will be admitted for further treatment and observation. Patient will be signed out to night team physician Dr. Al. Vital Signs Temperature 98.1 F 04/16/18 18:17 Pulse Rate 114 04/16/18 18:17 Respiratory Rate 28 04/16/18 18:17 Blood Pressure 162/93 04/16/18 18:17 O2 Sat by Pulse Oximetry 94 04/16/18 18:17 Temperature 98.1 F 04/16/18 18:17 Pulse Rate 114 04/16/18 18:17 Respiratory Rate 28 04/16/18 18:17 Blood Pressure 162/93 04/16/18 18:17 O2 Sat by Pulse Oximetry 94 04/16/18 18:17 Oxygen Delivery Oxygen Delivery Nasal Cannula Shortness of Breath/Dyspnea - Medical Records Medical records reviewed: Yes I reviewed the patient's medical records.
--- NOTE | 2018-04-16 18:46 | Emergency Department Note ---
Disposition Clinical Impression: Acute respiratory failure with hypoxemia Asthma with exacerbation Qualifiers: Asthma severity: severe Asthma persistence: persistent Qualified Code(s): J45.51 - Severe persistent asthma with (acute) exacerbation Disposition: Still a Patient Condition: Undetermined Forms: ED Satisfaction Letter General Adult HPI - General Chief complaint: ED Shortness of Breath/Dyspnea Stated complaint: TOREY (Chronic Asthma) Time Seen by Provider: 04/16/18 18:20 Source: patient Mode of arrival: ambulatory Limitations: no limitations - History of Present Illness Pain Scale: 6 - Related Data Home Medications Medication Instructions Recorded Confirmed Sertraline [Zoloft] 50 mg PO HS 01/28/16 12/23/17 Albuterol Sulfate [Proair Hfa] 2 puff IH Q6H PRN 05/23/16 12/23/17 clonazePAM [Klonopin] 0.5 mg PO BID 08/08/16 12/23/17 Furosemide [Lasix] 40 mg PO DAILY 08/14/17 12/23/17 Ipratropium Neb [Atrovent Neb] 0.5 mg IH QID PRN 08/14/17 12/23/17 Mometasone/Formoterol [Dulera 200 2 puff IH BID 08/14/17 12/23/17 Mcg/5 Mcg Inhaler] Montelukast [Singulair] 10 mg PO QPM 08/14/17 12/23/17 Iron Ps Cmplx/Vit B12/FA 1 each PO DAILY 12/23/17 12/23/17 [Poly-Iron 150 Forte Capsule] Tiotropium [place] [Spiriva 2 puff IH DAILY 12/23/17 12/23/17 Respimat] Previous Rx's Medication Instructions Recorded Albuterol Neb [Proventil Neb] 2.5 mg IH TID #30 inhsol 12/25/17 Azithromycin [Zithromax] 250 mg PO DAILY #5 tablet 12/25/17 Fluticasone Propionate Nasal 50 mcg NS DAILY #1 bottle 12/25/17 [Flonase] GuaiFENesin ER [Mucinex] 600 mg PO BID PRN #60 tbbp.12hr 12/25/17 Ipratropium/Albuterol Neb [Duoneb] 3 ml IH [id number] PRN #30 inhsol 12/25/17 Loratadine [Claritin] 10 mg PO DAILY #30 tablet 12/25/17 predniSONE [PredniSONE] 10 mg PO DAILY #31 tablet 12/25/17 Allergies Allergy/AdvReac Type Severity Reaction Status Date / Time levofloxacin [From Levaquin] Allergy Anaphylaxis Verified 09/03/17 12:21 Penicillins [PCN] Allergy Anaphylaxis Verified 09/03/17 12:21 Past Medical History - Past Medical History Medical history: Reports: asthma, CHF, COPD, diabetes, GERD Surgical history: Reports: , cholecystectomy Psychiatric history: Reports: anxiety, depression ASSESSMENT ANALYST history: Reports: no ASSESSMENT ANALYST history, bilateral tubal ligation - Social History Smoking Status: Current every day smoker Smokeless Tobacco Status: No Alcohol use: Reports: none Drug use: Reports: none Physical Exam - General Limitations: no limitations General appearance: alert, in distress Course Vital Signs Temperature 98.1 F 04/16/18 18:17 Pulse Rate 114 04/16/18 18:17 Respiratory Rate 28 04/16/18 18:17 Blood Pressure 162/93 04/16/18 18:17 O2 Sat by Pulse Oximetry 94 04/16/18 18:17 Temperature 98.1 F 04/16/18 18:17 Pulse Rate 114 04/16/18 18:17 Respiratory Rate 32 04/16/18 18:40 Blood Pressure 136/77 04/16/18 18:40 O2 Sat by Pulse Oximetry 96 04/16/18 18:40 Oxygen Delivery Oxygen Delivery Nasal Cannula Attestation Statement - Attestation Attestation: I examined this patient and my medical decision-making was reviewed with the FARM OPERATIONS MANAGER/PA/Advanced Practice Nurse/Resident Physician. I agree with the documented findings, disposition and treatment plan as described except to the extent set forth below. The patient has a history of asthma and failure and has had 15 pounds weight gain over the last several weeks and presents with acute dyspnea and will be put on BiPAP. She is mentating well. Room air oxygen saturation 89%. She does use oxygen at home as needed. Was sent over here from the primary care physician office. We will initiate the evaluation here and care will be transitioned to the night team at 7:00 tonight. [id number]
[2018-04-16 18:59] LABS: Basophils % 0.3 %; Hematocrit 43.1 % (35.3-44.9); Immature Granulocytes % 1.7 % (0-4); Lymphocytes # 1.4 K/mcL (0.6-4.6); Lymphocytes % 12.6 %; Mean Corpuscular HGB Conc 34.8 g/dL (31.6-35.5); Mean Corpuscular Hemoglobin 29.2 pg (28.0-33.3); Mean Corpuscular Volume 83.9 fL (83.0-100.0); Mean Platelet Volume 9.5 fL (9.4-12.4); Monocytes # 0.4 K/mcL (0.0-1.3); Neutrophils # 8.9 K/mcL (1.6-8.9); Platelet Count 240 K/mcL (140-400); Red Blood Count 5.14 M/mcL (3.82-4.97); Red Cell Distribution Width 12.5 % (11.5-14.5); Segmented Neutrophils % 81.4 %
[2018-04-16 19:11] LABS: Troponin I < 0.03 ng/mL (< 0.04)
[2018-04-16 19:16] LABS: BUN/Creatinine Ratio 20 (6-26); Blood Urea Nitrogen 17 mg/dL (6-20); Calcium 9.2 mg/dL (8.6-10.3); Carbon Dioxide 18 mEq/L (23-29); Chloride 109 mEq/L (98-107); Glucose 320 mg/dL (70-105); Osmolality,Calculated 298 (280-300); Potassium 4.4 mEq/L (3.5-5.1); Sodium 137 mEq/L (136-145); eGFR For African Americans > 60 (> 60); eGFR For Non-African Americans > 60 (> 60)
[2018-04-16] MEDS ORDERED: cefTRIAXone 1,000 MG in Water for inj. (sterile) 20 ML 10 ML IVP ONE (19:40)
[2018-04-16] MEDS ORDERED: Azithromycin 500 MG in D5% in Water 250 ML IVPB ONE ×2 (19:41→23:00)
--- NOTE | 2018-04-16 21:06 | Emergency Department Note ---
Disposition Clinical Impression: Acute respiratory failure with hypoxemia Asthma with exacerbation Qualifiers: Asthma severity: severe Asthma persistence: persistent Qualified Code(s): J45.51 - Severe persistent asthma with (acute) exacerbation Disposition: Admitted As Inpatient Condition: Fair Time of Disposition: 21:34 General Adult HPI - General Chief complaint: ED Shortness of Breath/Dyspnea Stated complaint: TOREY (Chronic Asthma) Time Seen by Provider: 04/16/18 18:20 Source: patient Mode of arrival: ambulatory Limitations: no limitations Vital Signs Reviewed: Yes - History of Present Illness Pain Scale: 0 - Related Data Home Medications Medication Instructions Recorded Confirmed Sertraline [Zoloft] 50 mg PO HS 01/28/16 04/17/18 Albuterol Sulfate [Proair Hfa] 2 puff IH Q6H PRN 05/23/16 04/17/18 clonazePAM [Klonopin] 0.5 mg PO BID 08/08/16 04/17/18 Furosemide [Lasix] 40 mg PO DAILY 08/14/17 04/17/18 Ipratropium Neb [Atrovent Neb] 0.5 mg IH QID PRN 08/14/17 04/17/18 Mometasone/Formoterol [Dulera 200 2 puff IH BID 08/14/17 04/17/18 Mcg/5 Mcg Inhaler] Montelukast [Singulair] 10 mg PO QPM 08/14/17 04/17/18 Iron Ps Cmplx/Vit B12/FA 1 each PO DAILY 12/23/17 04/17/18 [Poly-Iron 150 Forte Capsule] Tiotropium [place] [Spiriva 2 puff IH DAILY 12/23/17 04/17/18 Respimat] Previous Rx's Medication Instructions Recorded Albuterol Neb [Proventil Neb] 2.5 mg IH TID #30 inhsol 12/25/17 Azithromycin [Zithromax] 250 mg PO DAILY #5 tablet 12/25/17 Fluticasone Propionate Nasal 50 mcg NS DAILY #1 bottle 12/25/17 [Flonase] GuaiFENesin ER [Mucinex] 600 mg PO BID PRN #60 tbbp.12hr 12/25/17 Ipratropium/Albuterol Neb [Duoneb] 3 ml IH [id number] PRN #30 inhsol 12/25/17 Loratadine [Claritin] 10 mg PO DAILY #30 tablet 12/25/17 predniSONE [PredniSONE] 10 mg PO DAILY #31 tablet 12/25/17 Allergies Allergy/AdvReac Type Severity Reaction Status Date / Time levofloxacin [From Levaquin] Allergy Anaphylaxis Verified 09/03/17 12:21 Penicillins [PCN] Allergy Anaphylaxis Verified 09/03/17 12:21 Past Medical History - Past Medical History Medical history: Reports: asthma, CHF, COPD, diabetes, GERD Surgical history: Reports: , cholecystectomy Psychiatric history: Reports: anxiety, depression TENDER COORDINATOR history: Reports: no TENDER COORDINATOR history, bilateral tubal ligation - Social History Smoking Status: Current every day smoker Smokeless Tobacco Status: No Alcohol use: Reports: none Drug use: Reports: none Physical Exam - General Limitations: no limitations General appearance: alert, in distress Course Course Narrative: Patient signed out by night team. Patient trialled off BiPAP, oxygen saturation was 90% on 3L and patient continued to have increased work of breathing and placed back on BiPAP. Started on IV antibiotics for CAP appreciated on CXR. Patient admitted to the hospital for asthma exacerbation and pneumonia. Vital Signs Temperature 98.1 F 04/16/18 18:17 Pulse Rate 114 04/16/18 18:17 Respiratory Rate 28 04/16/18 18:17 Blood Pressure 162/93 04/16/18 18:17 O2 Sat by Pulse Oximetry 94 04/16/18 18:17 Temperature 97.5 F L 04/17/18 01:20 Pulse Rate 96 04/17/18 01:20 Respiratory Rate 13 04/17/18 04:27 Blood Pressure 150/92 04/17/18 01:20 O2 Sat by Pulse Oximetry 94 04/17/18 04:27 Oxygen Delivery Oxygen Delivery Bipap Medical Decision Making - Medical Records Medical records reviewed: Yes I reviewed the patient's medical records. - Lab Data Lab results reviewed: Yes I reviewed the patient's lab results. Result diagrams: 04/16/18 18:35 04/16/18 18:35 Lab Results 04/16/18 04/16/18 04/16/18 Range/Units 18:35 18:35 18:35 WBC 10.9 (4.3-11.1) K/mcL RBC 5.14 H (3.82-4.97) M/mcL Hgb 15.0 (11.5-15.4) g/dL Hct 43.1 (35.3-44.9) % MCV 83.9 (83.0-100.0) fL MCH 29.2 (28.0-33.3) pg MCHC 34.8 (31.6-35.5) g/dL RDW 12.5 (11.5-14.5) % Plt Count 240 (140-400) K/mcL MPV 9.5 (9.4-12.4) fL Immature Gran % 1.7 (0-4) % Seg Neutrophils % 81.4 % Lymphocytes % 12.6 % Monocytes % 4.0 % Eosinophils % 0.0 % Basophils % 0.3 % Neutrophils # 8.9 (1.6-8.9) K/mcL Lymphocytes # 1.4 (0.6-4.6) K/mcL Monocytes # 0.4 (0.0-1.3) K/mcL Eosinophils # 0.0 (0.0-0.6) K/mcL Basophils # 0.0 (0.0-0.2) K/mcL Sample Site ABG pH (7.32-7.45) pH Units ABG pCO2 (35-45) mmHg ABG pO2 (85-104) mmHg ABG HCO3 (21-27) mEq/L ABG Total CO2 (20-26) mEq/L ABG O2 Saturation (95-98) % ABG Base Excess (-2 to 3) mEq/L Adria Test O2 Delivery Device Blood Gas Modality Inspired O2 (1-15=lpm ip24-101=%) PEEP cm H2O Sodium 137 (136-145) mEq/L Potassium 4.4 (3.5-5.1) mEq/L Chloride 109 H (98-107) mEq/L Carbon Dioxide 18 L (23-29) mEq/L BUN 17 (6-20) mg/dL Creatinine 0.87 (0.60-1.20) mg/dL Est GFR ( Amer) > 60 (> 60) Est GFR (Non-Af Amer) > 60 (> 60) BUN/Creatinine Ratio 20 (6-26) Glucose 320 H (70-105) mg/dL Est Mean Plasma Glucose mg/dl Hemoglobin A1c ( - 5.6) % Calculated Osmolality 298 (280-300) Lactic Acid 2.2 (0.5-2.2) mmol/L Calcium 9.2 (8.6-10.3) mg/dL Troponin I < 0.03 (< 0.04) ng/mL Serum , Qual (Negative) 04/16/18 04/16/18 04/16/18 Range/Units 20:46 22:18 22:32 WBC (4.3-11.1) K/mcL RBC (3.82-4.97) M/mcL Hgb (11.5-15.4) g/dL Hct (35.3-44.9) % MCV (83.0-100.0) fL MCH (28.0-33.3) pg MCHC (31.6-35.5) g/dL RDW (11.5-14.5) % Plt Count (140-400) K/mcL MPV (9.4-12.4) fL Immature Gran % (0-4) % Seg Neutrophils % % Lymphocytes % % Monocytes % % Eosinophils % % Basophils % % Neutrophils # (1.6-8.9) K/mcL Lymphocytes # (0.6-4.6) K/mcL Monocytes # (0.0-1.3) K/mcL Eosinophils # (0.0-0.6) K/mcL Basophils # (0.0-0.2) K/mcL Sample Site ABG pH (7.32-7.45) pH Units ABG pCO2 (35-45) mmHg ABG pO2 (85-104) mmHg ABG HCO3 (21-27) mEq/L ABG Total CO2 (20-26) mEq/L ABG O2 Saturation (95-98) % ABG Base Excess (-2 to 3) mEq/L Adria Test O2 Delivery Device Blood Gas Modality Inspired O2 (1-15=lpm he87-411=%) PEEP cm H2O Sodium (136-145) mEq/L Potassium (3.5-5.1) mEq/L Chloride (98-107) mEq/L Carbon Dioxide (23-29) mEq/L BUN (6-20) mg/dL Creatinine (0.60-1.20) mg/dL Est GFR ( Amer) (> 60) Est GFR (Non-Af Amer) (> 60) BUN/Creatinine Ratio (6-26) Glucose (70-105) mg/dL Est Mean Plasma Glucose 134 mg/dl Hemoglobin A1c 6.3 H ( - 5.6) % Calculated Osmolality (280-300) Lactic Acid 2.2 (0.5-2.2) mmol/L Calcium (8.6-10.3) mg/dL Troponin I (< 0.04) ng/mL Serum , Qual Negative (Negative) 04/16/18 04/16/18 Range/Units 23:08 23:21 WBC (4.3-11.1) K/mcL RBC (3.82-4.97) M/mcL Hgb (11.5-15.4) g/dL Hct (35.3-44.9) % MCV (83.0-100.0) fL MCH (28.0-33.3) pg MCHC (31.6-35.5) g/dL RDW (11.5-14.5) % Plt Count (140-400) K/mcL MPV (9.4-12.4) fL Immature Gran % (0-4) % Seg Neutrophils % % Lymphocytes % % Monocytes % % Eosinophils % % Basophils % % Neutrophils # (1.6-8.9) K/mcL Lymphocytes # (0.6-4.6) K/mcL Monocytes # (0.0-1.3) K/mcL Eosinophils # (0.0-0.6) K/mcL Basophils # (0.0-0.2) K/mcL Sample Site L Radial ABG pH 7.31 L (7.32-7.45) pH Units ABG pCO2 39 (35-45) mmHg ABG pO2 121 H (85-104) mmHg ABG HCO3 20 L (21-27) mEq/L ABG Total CO2 21 (20-26) mEq/L ABG O2 Saturation 98 (95-98) % ABG Base Excess -6 L (-2 to 3) mEq/L Adria Test N/A O2 Delivery Device CPAP Blood Gas Modality CPAP/PS Inspired O2 35.0 (1-15=lpm fx35-609=%) PEEP 10 cm H2O Sodium (136-145) mEq/L Potassium (3.5-5.1) mEq/L Chloride (98-107) mEq/L Carbon Dioxide (23-29) mEq/L BUN (6-20) mg/dL Creatinine (0.60-1.20) mg/dL Est GFR ( Amer) (> 60) Est GFR (Non-Af Amer) (> 60) BUN/Creatinine Ratio (6-26) Glucose (70-105) mg/dL Est Mean Plasma Glucose mg/dl Hemoglobin A1c ( - 5.6) % Calculated Osmolality (280-300) Lactic Acid 1.9 (0.5-2.2) mmol/L Calcium (8.6-10.3) mg/dL Troponin I (< 0.04) ng/mL Serum , Qual (Negative) - Radiology Data Radiology results reviewed: Yes I reviewed the patient's radiology results. Chest X-Ray 04/16/18 18:21 IMPRESSION: Mild prominence of interstitial markings which is nonspecific and could be in part chronic. Superimposed edema cannot be entirely excluded. An early infiltrate cannot be excluded in the right lung base. Follow up to resolution is suggested. D/ / 04/16/2018 19:03:03 Kassie Ellis MD / bcarter Interpreting Provider: Kassie Ellis MD - EKG Data EKG #1 EKG attestation: Yes I reviewed and interpreted this EKG. EKG results narrative: EKG done at 18:24 shows sinus tachycardia at a rate of 101. Normal axis. Intervals within normal limits. No signs of ST elevation or ST depression or Q waves. S.B.Kaleigh - S.Seymour.AAbdullahi Situation: Demographics, MOA Background: Presenting Complaint, Relevant PMH, Meds, & Allergies Assessment: Vital Signs, Course and respsone to treatment, Exam Concerns, Patient/Family Expectation, Pertinant Lab Results, Outstanding Labs Recommendation: Barrier(s) to disposition, Recommendation based on pending studies, treatments, or consults S.B.ADannyRDanny Report Given to: Dr. Gallego and Dr. Devin Spencer Repor Time: 21:33
[2018-04-16] MEDS ORDERED: Isovue-370 500 ML INFUS..BTL IV ONE (21:44)
--- NOTE | 2018-04-16 21:48 | Emergency Department Note ---
Disposition Clinical Impression: Acute respiratory failure with hypoxemia Asthma with exacerbation Qualifiers: Asthma severity: severe Asthma persistence: persistent Qualified Code(s): J45.51 - Severe persistent asthma with (acute) exacerbation Disposition: Admitted As Inpatient Condition: Fair Referrals: Michael Salazar MD [Primary Care Provider] - Forms: ED Satisfaction Letter General Adult HPI - General Chief complaint: ED Shortness of Breath/Dyspnea Stated complaint: TOREY (Chronic Asthma) Time Seen by Provider: 04/16/18 18:20 Source: patient Mode of arrival: ambulatory Limitations: no limitations Nursing Notes Reviewed: Yes Vital Signs Reviewed: Yes - History of Present Illness Pain Scale: 0 - Related Data Home Medications Medication Instructions Recorded Confirmed Sertraline [Zoloft] 50 mg PO HS 01/28/16 12/23/17 Albuterol Sulfate [Proair Hfa] 2 puff IH Q6H PRN 05/23/16 12/23/17 clonazePAM [Klonopin] 0.5 mg PO BID 08/08/16 12/23/17 Furosemide [Lasix] 40 mg PO DAILY 08/14/17 12/23/17 Ipratropium Neb [Atrovent Neb] 0.5 mg IH QID PRN 08/14/17 12/23/17 Mometasone/Formoterol [Dulera 200 2 puff IH BID 08/14/17 12/23/17 Mcg/5 Mcg Inhaler] Montelukast [Singulair] 10 mg PO QPM 08/14/17 12/23/17 Iron Ps Cmplx/Vit B12/FA 1 each PO DAILY 12/23/17 12/23/17 [Poly-Iron 150 Forte Capsule] Tiotropium [place] [Spiriva 2 puff IH DAILY 12/23/17 12/23/17 Respimat] Previous Rx's Medication Instructions Recorded Albuterol Neb [Proventil Neb] 2.5 mg IH TID #30 inhsol 12/25/17 Azithromycin [Zithromax] 250 mg PO DAILY #5 tablet 12/25/17 Fluticasone Propionate Nasal 50 mcg NS DAILY #1 bottle 12/25/17 [Flonase] GuaiFENesin ER [Mucinex] 600 mg PO BID PRN #60 tbbp.12hr 12/25/17 Ipratropium/Albuterol Neb [Duoneb] 3 ml IH [id number] PRN #30 inhsol 12/25/17 Loratadine [Claritin] 10 mg PO DAILY #30 tablet 12/25/17 predniSONE [PredniSONE] 10 mg PO DAILY #31 tablet 12/25/17 Allergies Allergy/AdvReac Type Severity Reaction Status Date / Time levofloxacin [From Levaquin] Allergy Anaphylaxis Verified 09/03/17 12:21 Penicillins [PCN] Allergy Anaphylaxis Verified 09/03/17 12:21 Past Medical History - Past Medical History Medical history: Reports: asthma, CHF, COPD, diabetes, GERD Surgical history: Reports: , cholecystectomy Psychiatric history: Reports: anxiety, depression 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 NURSERY 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 NURSERY WORKER history, bilateral tubal ligation - Social History Smoking Status: Current every day smoker Smokeless Tobacco Status: No Alcohol use: Reports: none Drug use: Reports: none Physical Exam - General Limitations: no limitations General appearance: alert, in distress Course Vital Signs Temperature 98.1 F 04/16/18 18:17 Pulse Rate 114 04/16/18 18:17 Respiratory Rate 28 04/16/18 18:17 Blood Pressure 162/93 04/16/18 18:17 O2 Sat by Pulse Oximetry 94 04/16/18 18:17 Temperature 98.1 F 04/16/18 19:39 Pulse Rate 90 04/16/18 21:26 Respiratory Rate 18 04/16/18 21:26 Blood Pressure 129/84 04/16/18 21:26 O2 Sat by Pulse Oximetry 93 04/16/18 21:26 Oxygen Delivery Oxygen Delivery Bipap Medical Decision Making - Lab Data Lab results reviewed: Yes I reviewed the patient's lab results. Result diagrams: 04/16/18 18:35 04/16/18 18:35 Lab Results 04/16/18 04/16/18 04/16/18 Range/Units 18:35 18:35 18:35 WBC 10.9 (4.3-11.1) K/mcL RBC 5.14 H (3.82-4.97) M/mcL Hgb 15.0 (11.5-15.4) g/dL Hct 43.1 (35.3-44.9) % MCV 83.9 (83.0-100.0) fL MCH 29.2 (28.0-33.3) pg MCHC 34.8 (31.6-35.5) g/dL RDW 12.5 (11.5-14.5) % Plt Count 240 (140-400) K/mcL MPV 9.5 (9.4-12.4) fL Immature Gran % 1.7 (0-4) % Seg Neutrophils % 81.4 % Lymphocytes % 12.6 % Monocytes % 4.0 % Eosinophils % 0.0 % Basophils % 0.3 % Neutrophils # 8.9 (1.6-8.9) K/mcL Lymphocytes # 1.4 (0.6-4.6) K/mcL Monocytes # 0.4 (0.0-1.3) K/mcL Eosinophils # 0.0 (0.0-0.6) K/mcL Basophils # 0.0 (0.0-0.2) K/mcL Sodium 137 (136-145) mEq/L Potassium 4.4 (3.5-5.1) mEq/L Chloride 109 H (98-107) mEq/L Carbon Dioxide 18 L (23-29) mEq/L BUN 17 (6-20) mg/dL Creatinine 0.87 (0.60-1.20) mg/dL Est GFR ( Amer) > 60 (> 60) Est GFR (Non-Af Amer) > 60 (> 60) BUN/Creatinine Ratio 20 (6-26) Glucose 320 H (70-105) mg/dL Calculated Osmolality 298 (280-300) Lactic Acid 2.2 (0.5-2.2) mmol/L Calcium 9.2 (8.6-10.3) mg/dL Troponin I < 0.03 (< 0.04) ng/mL 04/16/18 Range/Units 20:46 WBC (4.3-11.1) K/mcL RBC (3.82-4.97) M/mcL Hgb (11.5-15.4) g/dL Hct (35.3-44.9) % MCV (83.0-100.0) fL MCH (28.0-33.3) pg MCHC (31.6-35.5) g/dL RDW (11.5-14.5) % Plt Count (140-400) K/mcL MPV (9.4-12.4) fL Immature Gran % (0-4) % Seg Neutrophils % % Lymphocytes % % Monocytes % % Eosinophils % % Basophils % % Neutrophils # (1.6-8.9) K/mcL Lymphocytes # (0.6-4.6) K/mcL Monocytes # (0.0-1.3) K/mcL Eosinophils # (0.0-0.6) K/mcL Basophils # (0.0-0.2) K/mcL Sodium (136-145) mEq/L Potassium (3.5-5.1) mEq/L Chloride (98-107) mEq/L Carbon Dioxide (23-29) mEq/L BUN (6-20) mg/dL Creatinine (0.60-1.20) mg/dL Est GFR ( Amer) (> 60) Est GFR (Non-Af Amer) (> 60) BUN/Creatinine Ratio (6-26) Glucose (70-105) mg/dL Calculated Osmolality (280-300) Lactic Acid 2.2 (0.5-2.2) mmol/L Calcium (8.6-10.3) mg/dL Troponin I (< 0.04) ng/mL - Radiology Data Radiology results reviewed: Yes I reviewed the patient's radiology results. Chest X-Ray 04/16/18 18:21 IMPRESSION: Mild prominence of interstitial markings which is nonspecific and could be in part chronic. Superimposed edema cannot be entirely excluded. An early infiltrate cannot be excluded in the right lung base. Follow up to resolution is suggested. D/ / 04/16/2018 19:03:03 Kassie Ellis MD / bcarter Interpreting Provider: Kassie Ellis MD Critical Care Time Critical Care Time: Yes Total Critical Care Time: 50 Attestation: Critical care performed: Time is exclusive of separately billable procedures. Time includes: direct patient care, patient reassessment, coordination of patient care, interpretation of data (laboratory data, radiology data, and respiratory data), review of patient's medical records, medical consultation and documentation of patient care. Procedures included in critical care time: Procedures excluded from critical care time: Attestation Statement - Attestation Attestation: IRodger MD, personally evaluated this patient and discussed their management with the resident physician. I reviewed the resident's note and agree with the documented findings, medical decision making, and plan of care. This patient was signed out at shift change from Dr. Soriano and Dr. Magaña. Please refer to their notes for complete details of history and physical examination. Patient presented with shortness of breath secondary to asthma. She has been having increased shortness of breath for the past week. She has been treated with antibiotics and steroids with persistent shortness of breath. She was placed on BiPAP. The emergency department. On examination patient is a well-developed obese female in mild respiratory distress. She is alert and oriented 3. There is no cyanosis or diaphoresis. Breath sounds are decreased bilaterally with diffuse tight bilateral expiratory wheezes. Heart regular rate and rhythm with a mild tachycardia. Abdomen is soft and nontender with normal bowel sounds. After treatments patient was maintaining oxygen saturation in the upper 90s on the BiPAP. We attempted removing the BiPAP and placed her on oxygen by nasal cannula but her oxygen saturations dropped to about 90 with increased work of breathing. She was placed back on the BiPAP. The hospitalist, Dr. Miranda, was consulted and accepted admission of the patient.
[2018-04-16] MEDS ORDERED: Naloxone 0.4 MG/ML INJ IVP PRN (22:26)
[2018-04-16] MEDS ORDERED: Acetaminophen 325 MG TABLET PO PRN (22:26)
--- NOTE | 2018-04-16 22:30 | Event Note ---
Date of Encounter: 04/16/18 Time of Encounter: 22:24 Patient was seen and examined. I agree with the H&P as written by the Resident Physician. Briefly, patient is tender 7-year-old with a history of severe persistent asthma on nocturnal O2 and daytime O2 as needed, mitral stenosis, morbid obesity , who presents with 5 days worth of significant shortness of breath. She was seen in the outpatient setting multiple times over the last week and has received oral steroids as well as IM steroids injection with no relief. Today she was evaluated by her PCP and had a fever 102 and was significantly dyspneic and was sent to the ED where she was found tachypneic, tachycardic, hypertensive. She was put on BiPAP for sats of 89% and was given multiple breathing treatments as well as IV steroids. Chest x-ray showed possible infiltrate. Laboratory workup was mostly significant for hyperglycemia that is likely steroid-induced. A/Ox3, on Bipap RRR, S1, S2, diastolic murmur at the apex Dimished, significant inspiratory and expiratory wheezes throughout the anterior and posterior lung aldana Abdomen is soft, nontender, nondistended, obese, +BS No edema, 2+ DP Nonfocal Admit to hospitalist for acute on chronic hypoxic resp failure We will place the patient on scheduled nebs and schedule IV steroids. check peak expiratory flow We will continue the patient on IV ceftriaxone IV Zithromax started in the ED Wean oxygen as tolerated Check an ABG We will put the patient on insulin sliding scale for steroid-induced hyperglycemia Check an A1c DVT prophylaxis
[2018-04-16] MEDS ORDERED: D5% in Water 1,000 ML IVC PRN (22:36)
[2018-04-16] MEDS ORDERED: *HR* Dextrose 50 % in Water (Syg) 50 ML SYRINGE IVP PRN (22:36)
[2018-04-16] MEDS ORDERED: Dextrose Gel 15 GM/37.5 ML TUBE PO PRN ×2 (22:36)
--- NOTE | 2018-04-16 22:40 | Internal Med History&Physical ---
Date of Encounter: 04/17/18 Time of Encounter: 22:20 Internal Medicine - H&P: HPI Chief complaint: SOB Admitted From: Home Plans for Post Hospital Care: Home History of present illness: Ms. Sweet is a 37 year old female with a past medical history of asthma on 3 L at night, CHF, and mitral stenosis who presented to the ED with worsening shortness of breath. Patient states that 5 days ago she woke up with shortness of breath and went to her primary care physician who started her on a prednisone taper at 60 mg. Patient states that she does not have a fever or productive cough. Shortness of breath continued to worsen and on Friday she went to the urgent care and got a steroid shot. Today she went to her primary care physician who believed this to be him due to allergies versus bacterial pneumonia and gave her loratadine and azithromycin. Patient's shortness of breath continued to worsen and she increased her oxygen to 5 L which continued to not help. When she arrived at the ED she was found to be hypoxic with an O2 saturation of 89%. She was given duo nebs 3 and placed on BiPAP. Chest x-ray showed right infiltrate. Patient was also given Solu-Medrol, magnesium sulfate , ceftriaxone, and azithromycin. Patient's last hospitalization for asthma was in September. She has never been intubated but has been admitted to ICU. Denies recent travel or increased time outside. Past Med Surg Social Fam HX - Past Medical History Medical history: asthma, CHF, COPD, diabetes, GERD Additional medical history: "heart problems" Psychiatric history: anxiety, depression - Past Surgical History Surgical History: , cholecystectomy Additional surgical history: Tubal Ligation - Social History Smoking Status: Current every day smoker Smokeless Tobacco Status: No Alcohol use: none Drug use: none - Family History Mother Living Status: Still Living Hx Family Cardiac Disorders: Yes (pvd) Hx Family Respiratory Disorders: Yes (copd) Father Living Status: Hx Family Cardiac Disorders: Yes (htn) Hx Family Respiratory Disorders: Yes Hx Family Cancer: Yes (bone and breast) Hx Family GI Disorders: Yes Hx Family Endocrine Disorder: No Hx Family Neuromuscular Disorders: No Hx Family Neurologic Disorders: No Hx Family HEENT Disorders: No Hx Family Autoimmune Disorders: No Internal Medicine - H&P: Meds Sertraline [Zoloft] 50 mg PO HS 01/28/16 [History] Albuterol Sulfate [Proair Hfa] 2 puff IH Q6H PRN 05/23/16 [History] clonazePAM [Klonopin] 0.5 mg PO BID 08/08/16 [History] Furosemide [Lasix] 40 mg PO DAILY 08/14/17 [History] Ipratropium Neb [Atrovent Neb] 0.5 mg IH QID PRN 08/14/17 [History] Mometasone/Formoterol [Dulera 200 Mcg/5 Mcg Inhaler] 2 puff IH BID 08/14/17 [ History] Montelukast [Singulair] 10 mg PO QPM 08/14/17 [History] Iron Ps Cmplx/Vit B12/FA [Poly-Iron 150 Forte Capsule] 1 each PO DAILY 12/23/17 [History] Tiotropium [place] [Spiriva Respimat] 2 puff IH DAILY 12/23/17 [History] Albuterol Neb [Proventil Neb] 2.5 mg IH TID #30 inhsol 12/25/17 [Rx] Azithromycin [Zithromax] 250 mg PO DAILY #5 tablet 12/25/17 [Rx] Fluticasone Propionate Nasal [Flonase] 50 mcg NS DAILY #1 bottle 12/25/17 [Rx] GuaiFENesin ER [Mucinex] 600 mg PO BID PRN #60 tbbp.12hr 12/25/17 [Rx] Ipratropium/Albuterol Neb [Duoneb] 3 ml IH [id number] PRN #30 inhsol 12/25/17 [Rx] Loratadine [Claritin] 10 mg PO DAILY #30 tablet 12/25/17 [Rx] predniSONE [PredniSONE] 10 mg PO DAILY #31 tablet 12/25/17 [Rx] 3 Allergy/AdvReac Type Severity Reaction Status Date / Time levofloxacin [From Levaquin] Allergy Anaphylaxis Verified 09/03/17 12:21 Penicillins [PCN] Allergy Anaphylaxis Verified 09/03/17 12:21 All Systems PM: A 10-system review of systems was performed and is negative for pertinent findings except as documented above in the HPI. Review of systems: as per HPI - Constitutional Vitals: Temp Pulse Resp BP Pulse Ox 98.1 F 84 16 134/95 93 04/16/18 19:39 04/16/18 22:15 04/16/18 22:15 04/16/18 22:15 04/16/18 22:15 Exam: Constitutional: Alert, no acute distress, initially sleeping comfortably with BIPAP on Head: Normocephalic, atraumatic Heart: Normal, regular rate and rhythm, no murmurs Lungs: wheezing bilaterally, decrease air movement, non-labored breathing Abdomen: Soft, nondistended, nontender, bowel sounds present and normal, no guarding or rigidity. Extremities: +1 LE edema, No clubbing capillary refill <2sec. Skin: Skin warm and dry, no lesions, no rashes, no jaundice Neurologic: strength 5/5 in all extremities Psych: Cooperative with exam, good eye contact, cognitive function intact, speech clear, thought process logical, and goal directed Internal Med - H&P Results - Labs CBC & Chem 7: 04/16/18 18:35 04/16/18 18:35 Labs: Short CBC 04/16/18 Range/Units 18:35 WBC 10.9 (4.3-11.1) K/mcL Hgb 15.0 (11.5-15.4) g/dL Hct 43.1 (35.3-44.9) % Plt Count 240 (140-400) K/mcL Neutrophils # 8.9 (1.6-8.9) K/mcL BMP 04/16/18 18:35 Sodium 137 Potassium 4.4 Chloride 109 H Carbon Dioxide 18 L BUN 17 Creatinine 0.87 Glucose 320 H Calcium 9.2 Cardiac Enzymes 04/16/18 Range/Units 18:35 Troponin I < 0.03 (< 0.04) ng/mL - Impressions ITS Impressions Chest X-Ray 04/16/18 18:21 IMPRESSION: Mild prominence of interstitial markings which is nonspecific and could be in part chronic. Superimposed edema cannot be entirely excluded. An early infiltrate cannot be excluded in the right lung base. Follow up to resolution is suggested. D/ /16/2018 19:03:03 Kassie Ellis MD / [email or web address] Interpreting Provider: Kassie Ellis MD - Assessment and plan (1) Severe persistent asthma with exacerbation Current Visit: Yes Status: Acute Assessment and plan: Hx of severe persistent asthma as patient has symptoms daily and requires oxygen at night. Acute exacerbation likely 2/2 to CAP vs. allergy. Patient presented with hypoxia at 89%, tachycardia, and hypertensive. Currently patient is on BIPAP satting in the 90s and vitals wnl. CTA negative for PE. Plan: - Continue BIPAP, wean to NS as tolerated - DuoNebs Q2H prn and Q4H amanda - Solu-Medrol 60mg Q8H - continuous pulse ox - recheck Mg level in the AM as patient given Mg in ED (2) Steroid-induced hyperglycemia Current Visit: Yes Status: Acute Assessment and plan: Patient has been on steroids for 5 days. Random glucose 320. Placed on low sliding scale. Will obtain A1c as patient has multiple risk factors for DM. Will start patient on diabetic diet. (3) CAP (community acquired pneumonia) Current Visit: Yes Status: Acute Assessment and plan: CXR showed developing right infiltrate. Patient states that she had a fever in the outpatient setting today but no documentation of it in PCPs note. Afebrile and no elevated WBC here but due to CXR and worsening asthma will begin on antibiotics until culture, strep, legionelle, and resp panel return. Plan: - begin Azithromycin and Ceftriaxone (day 1) - resp panel pending - strep and legionella antigen pending - sputum culture pending Qualifiers: Laterality: right Lung location: lower lobe of lung Qualified Code(s): J18.1 - Lobar pneumonia, unspecified organism (4) Acute and chronic respiratory failure Current Visit: Yes Status: Acute Assessment and plan: See plan above. Patient on 3L NC at night and has increased to 5L 24/7. Initially hypoxic upon arrival. Now satting well on BIPAP. Etiology is asthma exacerbation likely from CAP. Qualifiers: Respiratory failure complication: hypoxia Qualified Code(s): J96.21 - Acute and chronic respiratory failure with hypoxia (5) DVT prophylaxis Current Visit: Yes Status: Acute Assessment and plan: Heparin sq - Time Spent With Patient Total time spent is greater than 50% in coordination of care (as documented) at patient's floor/unit and/or counseling patient:
[2018-04-16 22:53] LABS: Estimated Average Glucose 134 mg/dl; Hemoglobin A1C 6.3 %
[2018-04-16 23:25] LABS: ABG Base Excess -6 mEq/L (-2 to 3); ABG HCO3 20 mEq/L (21-27); ABG Oxygen Saturation 98 % (95-98); ABG PCO2 39 mmHg (35-45); ABG PH 7.31 pH Units (7.32-7.45); ABG PO2 121 mmHg (85-104); ABG TCO2 21 mEq/L (20-26); Blood Gas Modality CPAP/PS; Blood Gas PEEP 10 cm H2O
[2018-04-17] MEDS ORDERED: Ipratropium/Albuterol Neb 3 ML IH PRN (01:24)
[2018-04-17] MEDS: *HR* Heparin 5,000 UNIT/ML VIAL SQ SCH ×3 (01:39→16:59)
[2018-04-17 03:44] LABS: Adenovirus Not Detected (Not Detect); Coronavirus 229E Not Detected (Not Detect); Coronavirus HKU1 Not Detected (Not Detect); Coronavirus NL63 Not Detected (Not Detect); Coronavirus OC43 Not Detected (Not Detect); Human Metapneumovirus Not Detected (Not Detect); Human Rhinovirus/Enterovirus ***DETECTED*** (Not Detect); Influenza A Subtype 2009 H1 Not Detected (Not Detect); Influenza A Untypeable Not Detected (Not Detect); Influenza B Not Detected (Not Detect); Parainfluenza Virus 1 Not Detected (Not Detect); Parainfluenza Virus 2 Not Detected (Not Detect); Parainfluenza Virus 3 Not Detected (Not Detect); Parainfluenza Virus 4 Not Detected (Not Detect)
[2018-04-17 03:45] LABS: Bordetella Pertussis Not Detected (Not Detect); Chlamydophila pneumoniae Not Detected (Not Detect); Mycoplasma pneumoniae Not Detected (Not Detect); Respiratory Syncytial Virus Not Detected (Not Detect)
[2018-04-17] MEDS: Ipratropium/Albuterol Neb 3 ML IH SCH ×6 (04:26→23:48)
[2018-04-17 07:24] LABS: Basophils % 0.4 %; Hemoglobin 14.2 g/dL (11.5-15.4); Immature Granulocytes % 1.9 % (0-4); Lymphocytes # 1.3 K/mcL (0.6-4.6); Lymphocytes % 13.9 %; Mean Corpuscular HGB Conc 33.8 g/dL (31.6-35.5); Mean Corpuscular Hemoglobin 29.1 pg (28.0-33.3); Mean Corpuscular Volume 86.1 fL (83.0-100.0); Monocytes # 0.3 K/mcL (0.0-1.3); Monocytes % 3.6 %; Neutrophils # 7.3 K/mcL (1.6-8.9); Platelet Count 212 K/mcL (140-400); Red Blood Count 4.88 M/mcL (3.82-4.97); Red Cell Distribution Width 12.7 % (11.5-14.5); Segmented Neutrophils % 80.2 %
[2018-04-17] MEDS ORDERED: Insulin LISPRO 300 UNITS/3 ML VIAL SQ SCH (07:30)
[2018-04-17 07:38] LABS: BUN/Creatinine Ratio 24 (6-26); Blood Urea Nitrogen 21 mg/dL (6-20); Calcium 8.9 mg/dL (8.6-10.3); Carbon Dioxide 18 mEq/L (23-29); Chloride 109 mEq/L (98-107); Glucose 391 mg/dL (70-105); Magnesium 2.5 mg/dL (1.6-2.6); Osmolality,Calculated 301 (280-300); Phosphorous 2.6 mg/dL (2.7-4.5); Sodium 136 mEq/L (136-145); eGFR For African Americans > 60 (> 60); eGFR For Non-African Americans > 60 (> 60)
[2018-04-17] MEDS: methylPREDNISolone 125 MG/2 ML VIAL IVP SCH ×2 (08:38→16:43)
[2018-04-17] MEDS: cefTRIAXone 1,000 MG in Water for inj. (sterile) 20 ML 10 ML IVP SCH (08:40)
[2018-04-17] MEDS ORDERED: Furosemide 80 MG in 0.9 % Sodium Chloride 50 ML IVPB ONE (09:35)
--- NOTE | 2018-04-17 09:41 | Internal Med Progress Note ---
Date of Encounter: 04/17/18 Time of Encounter: 08:15 - Assessment and plan (1) Severe persistent asthma with exacerbation Current Visit: Yes Status: Acute Assessment and plan: Mostly likely secondary to rhinovirus infection, with her severe persistent asthma, unable to receive BiPAP at home, will consult pulmonary as well as social work therapist, duonep aerosol treatment every 4 hour, continue steroid (2) Steroid-induced hyperglycemia Current Visit: Yes Status: Acute Assessment and plan: Increase insulin sliding scale, add Lantus (3) CAP (community acquired pneumonia) Current Visit: Yes Status: Acute Assessment and plan: Possible secondary to viral infection with her comorbidity will continue antibiotic Qualifiers: Laterality: right Lung location: lower lobe of lung Qualified Code(s): J18.1 - Lobar pneumonia, unspecified organism (4) Acute and chronic respiratory failure Current Visit: Yes Status: Acute Assessment and plan: Secondary to CHF exacerbation and viral pneumonia Qualifiers: Respiratory failure complication: hypoxia Qualified Code(s): J96.21 - Acute and chronic respiratory failure with hypoxia (5) DVT prophylaxis Current Visit: Yes Status: Acute (6) Acute exacerbation of CHF (congestive heart failure) Current Visit: Yes Status: Acute Assessment and plan: Add 1 dose of Lasix now, check BNP, increased Lasix to 40 mg twice a day. Counseling patient about daily weight, salt restriction, water restriction to 1- 1/2 L Patient had moderate mitral stenosis need cardiology evaluation may consider MALLORY , will consult cardiology team Qualifiers: Heart failure type: diastolic Qualified Code(s): I50.33 - Acute on chronic diastolic (congestive) heart failure - Time Spent With Patient Total time spent is greater than 50% in coordination of care (as documented) at patient's floor/unit and/or counseling patient: Greater than 35 minutes - Subjective Interval history: Shortness of breath, orthopnea, paroxysmal nocturnal dyspnea, 15 pound weight gain over last 2 weeks, patient denies any chest pain, she continued to have shortness of breath. Patient stated at home she has been using many pillows to able to sleep, lately she wake up many times at night sit at the edge of the bed to sleep. Patient has been taking multiple courses of steroids recently. She has history of CHF - Constitutional Vitals: Temp Pulse Resp BP Pulse Ox 97.6 F 68 13 150/92 95 04/17/18 07:13 04/17/18 07:13 04/17/18 07:44 04/17/18 07:13 04/17/18 07:44 General appearance: Present: A&O X 3, no acute distress - Head Head exam: Present: normocephalic - Neck Neck exam general surgery: Present: supple, trachea midline. Absent: lymphadenopathy - Respiratory Respiratory exam: Present: decreased breath sounds, prolonged expiratory phase, rhonchi. Absent: accessory muscle use, rales, wheezes - Cardiovascular Cardiovascular exam: Present: RRR, +S1, +S2. Absent: diastolic murmur, gallop, rubs, systolic murmur - GI/Abdominal GI/Abdominal exam: Present: normal bowel sounds, soft, no peritoneal signs. Absent: distended, tenderness - Extremities Exam Extremities exam: Present: pedal edema, warm, radial pulses palpable and symmetrical. Absent: calf tenderness, cyanotic - Skin Skin exam: Present: dry, intact Internal Medicine: Result - Labs CBC & Chem 7: 04/17/18 06:22 04/17/18 06:22 Labs: Short CBC 04/17/18 Range/Units 06:22 WBC 9.1 (4.3-11.1) K/mcL Hgb 14.2 (11.5-15.4) g/dL Hct 42.0 (35.3-44.9) % Plt Count 212 (140-400) K/mcL Neutrophils # 7.3 (1.6-8.9) K/mcL BMP 04/17/18 06:22 Sodium 136 Potassium 4.0 Chloride 109 H Carbon Dioxide 18 L BUN 21 H Creatinine 0.86 Glucose 391 H Calcium 8.9 - ABG Interpretation ABG results: ABG ABG pH 7.31 pH Units (7.32-7.45) L 04/16/18 23:21 ABG pCO2 39 mmHg (35-45) 04/16/18 23:21 ABG pO2 121 mmHg (85-104) H 04/16/18 23:21 ABG O2 Saturation 98 % (95-98) 04/16/18 23:21 Consult Discharge Plan - Plan Referrals: Michael Salazar MD [Primary Care Provider] -
--- NOTE | 2018-04-17 11:08 | Cardiology Consult Note ---
<Paramjit Guerrero - Last Filed: 04/17/18 14:44> Date of Encounter: 04/17/18 Time of Encounter: 11:07 Assessment and Plan (1) Mitral regurgitation Current Visit: Yes Status: Acute Ms. Sweet presents with acute respiratory distress from asthma exacerbation, PNA, and rhinovirus. Known history of mild to moderate MR. Last evaluated 2017 in the [facility] office. 6 mo follow up with TTE recommended at that time. Prior cardiac testing reviewed: MALLORY 12/2017: Myxomatous appearing mitral valve leaflet. Fixed and restricted P2 leaflet tip of the posterior mitral valve. Mean gradient 6 mmHg by CWD at 92 bpm. Mild to moderate eccentric mitral regurgitation. TTE :LVEF 55-60%. Mitral valve not well visualized. Moderate mitral stenosis by mean gradient 7mmHg but mitral valve poorly visualized secondary to poor windows from body habitus. If clinically indicated, consider elective outpatient MALLORY to further evaluate mitral valve. No evidence of pulmonary HTN or other significant valve disease. No indication for repeat MALLORY. Noted that patient did not follow for her appts. Will order TTE to be completed for re-evaluation. If no significant change she can continue to follow in out-pt setting for monitoring and serial TTE. Suspect cardiology sign off if no change on TTE. Qualifiers: Cardiac valve disease etiology: etiology unspecified Qualified Code(s): I34.0 - Nonrheumatic mitral (valve) insufficiency Discussion w patient/family: The assessment and plan as outlined above was discussed with the patient and/or family members who expressed understanding and agreement. All questions were answered. Thank you for involving us in the care of your patient. Please call with any questions. History of Present Illness Consult date: 04/17/18 Requesting physician: Alecia Howell Consult reason: Evaluate for MALLORY need, MR Chief complaint: SOB for one week History of present illness: Ms. Sweet is a 37 year old female with past medical history of mild to moderate mitral regurgitation, obesity, COPD, tobacco abuse, and MELODY on bipap who presents with increasing SOB, wheezing, and chest tightness. She is diagnosed with acute respiratory failure secondary to asthma exacerbation, pneumonia, and found to be positive for rhinovirus. Cardiology consulted to re- evaluate due to history of mild to moderate MR. She followed with [facility] earlier this year but did not return as recommended. Echocardiogram was ordered to be completed in 6 months (June) for continued monitoring. Previous testing: MALLORY 12/2017: Myxomatous appearing mitral valve leaflet. Fixed and restricted P2 leaflet tip of the posterior mitral valve. Mean gradient 6 mmHg by CWD at 92 bpm. Mild to moderate eccentric mitral regurgitation. TTE :LVEF 55-60%. Mitral valve not well visualized. Moderate mitral stenosis by mean gradient 7mmHg but mitral valve poorly visualized secondary to poor windows from body habitus. If clinically indicated, consider elective outpatient MALLORY to further evaluate mitral valve. No evidence of pulmonary HTN or other significant valve disease. Stress test 08/2017- negative for ischemia or infarct. Past Med Surg Social Fam HX - Past Medical History Medical history: asthma, CHF, COPD, diabetes, GERD Additional medical history: "heart problems" Psychiatric history: anxiety, depression - Past Surgical History Surgical History: , cholecystectomy Additional surgical history: Tubal Ligation - Social History Smoking Status: Current every day smoker Smokeless Tobacco Status: No Alcohol use: none Drug use: none - Family History Mother Living Status: Still Living Hx Family Cardiac Disorders: Yes (pvd) Hx Family Respiratory Disorders: Yes (copd) Father Living Status: Hx Family Cardiac Disorders: Yes (htn) Hx Family Respiratory Disorders: Yes Hx Family Cancer: Yes (bone and breast) Hx Family GI Disorders: Yes Hx Family Endocrine Disorder: No Hx Family Neuromuscular Disorders: No Hx Family Neurologic Disorders: No Hx Family HEENT Disorders: No Hx Family Autoimmune Disorders: No Medications and Allergies Sertraline [Zoloft] 50 mg PO HS 01/28/16 [History] Albuterol Sulfate [Proair Hfa] 2 puff IH Q6H PRN 05/23/16 [History] clonazePAM [Klonopin] 0.5 mg PO BID 08/08/16 [History] Furosemide [Lasix] 40 mg PO DAILY 08/14/17 [History] Ipratropium Neb [Atrovent Neb] 0.5 mg IH QID PRN 08/14/17 [History] Mometasone/Formoterol [Dulera 200 Mcg/5 Mcg Inhaler] 2 puff IH BID 08/14/17 [ History] Montelukast [Singulair] 10 mg PO QPM 08/14/17 [History] Iron Ps Cmplx/Vit B12/FA [Poly-Iron 150 Forte Capsule] 1 each PO DAILY 12/23/17 [History] Tiotropium [place] [Spiriva Respimat] 2 puff IH DAILY 12/23/17 [History] Albuterol Neb [Proventil Neb] 2.5 mg IH TID #30 inhsol 12/25/17 [Rx] GuaiFENesin ER [Mucinex] 600 mg PO BID PRN #60 tbbp.12hr 12/25/17 [Rx] Ipratropium/Albuterol Neb [Duoneb] 3 ml IH [id number] PRN #30 inhsol 12/25/17 [Rx] Loratadine [Claritin] 10 mg PO DAILY #30 tablet 12/25/17 [Rx] predniSONE [PredniSONE] 10 mg PO DAILY #31 tablet 12/25/17 [Rx] Insulin LISPRO [HumaLOG] 0 units SQ TIDWM PRN 04/17/18 [History] Umeclidinium [place] [Incruse Ellipta] 62.5 mcg IH DAILY 04/17/18 [History] dilTIAZem HCl [Diltiazem HCl] 120 mg PO DAILY 04/17/18 [History] PredniSONE [Deltasone] 60 mg PO DAILY #15 tablet 04/20/18 [Rx] 3 Allergy/AdvReac Type Severity Reaction Status Date / Time levofloxacin [From Levaquin] Allergy Anaphylaxis Verified 09/03/17 12:21 Penicillins [PCN] Allergy Anaphylaxis Verified 09/03/17 12:21 All Systems Review: The remainder of the systems were reviewed and are negative Physical Examination Vital Signs, Last 4 Hours Temp Pulse Resp BP Pulse Ox 04/17/18 07:44 13 95 04/17/18 07:13 97.6 F 68 18 150/92 100 General: Conversant, No Apparent Distress, Other (obese female) HEENT: Atraumatic, Normocephaly, Mucus Membranes Moist Neck: No JVD, Normal carotid pulses Cardiac: Reg Rate and Rhythm, Normal S1 and S2, No Murmur Lungs: Other (expiratory wheezes scattered throughout. ) Neuro: Alert and responsive, No focal deficits noted Abdomen: Soft, Non-Tender Skin: No rashes noted on visualized skin Musculoskeletal: No Chest Wall Tenderness Extremities: No Clubbing, No Cyanosis, No Edema, Normal Pulses Results 04/17/18 06:22 04/17/18 06:22 Lab Results 04/17/1818 04/17/18 06:22 06:22 09:52 WBC 9.1 Hgb 14.2 Hct 42.0 Plt Count 212 Sodium 136 Potassium 4.0 Chloride 109 H Carbon Dioxide 18 L BUN 21 H Creatinine 0.86 Glucose 391 H Calcium 8.9 Magnesium 2.5 B-Natriuretic Peptide 34 - Imaging and Cardiology Echo: report reviewed Other Results: MALLORY reviewed - EKG Interpretation EKG results cardiology: other (NO ekg) Consult Discharge Plan - Plan Additional Instructions: Follow-up with pulmonary medicine in 4 weeks Referrals: Jac Kilgore MD [Partnered Physician] - Michael Salazar MD [Primary Care Provider] - 04/27/18 10:15 am Prescriptions: PredniSONE [Deltasone] 60 mg PO DAILY #15 tablet <Delfino Munoz - Last Filed: 04/21/18 13:02> Date of Encounter: 04/17/18 Time of Encounter: 16:00 - Attending Attestation I have personally performed a face to face evaluation on this patient. I have reviewed and agree with the care plan. History and Exam by me shows: CC: Shortness of breath Pt reports less short of breath, denies chest pain, pressure or palpitations: She notes much less difficutly breathing, wheezing and air hunger have resolved. ROS: Reviewed PMH: REviewed PE: Pt seen and examined, agree with findings as documented. IMP/Plan 1. Mitral regurg, moderate, with some question of severity, had MALLORY in 12/2017, found to have mild to moderate MR, no indications of endocarditis at that time . No indications for repeat MALLORY, would continue to maximize medical tx for asthma. Assessment and Plan Discussion w patient/family: The assessment and plan as outlined above was discussed with the patient and/or family members who expressed understanding and agreement. All questions were answered. Thank you for involving us in the care of your patient. Please call with any questions. History of Present Illness History of present illness: Ms. Sweet is a 37 year old female All Systems Review: The remainder of the systems were reviewed and are negative Physical Examination Vital Signs, Last 4 Hours Temp Pulse Resp BP Pulse Ox 04/21/18 11:44 97.9 F 91 19 149/85 97 04/21/18 11:00 19 90 04/21/18 09:10 96 Results 04/19/18 04:33 04/19/18 04:33
[2018-04-17] MEDS: Diltiazem CD (24hr) 120 MG CAPSULE PO SCH (11:17)
[2018-04-17] MEDS: Loratadine 10 MG TABLET PO SCH (11:18)
[2018-04-17] MEDS: clonazePAM 0.5 MG TABLET PO SCH ×2 (11:18→21:13)
[2018-04-17] MEDS: VIT B12 PO SCH (11:56)
[2018-04-17] MEDS: [UNRECOGNIZED DRUG - OTHER] PO SCH (11:56)
[2018-04-17] MEDS: IRON PS CMPLX PO SCH (11:56)
--- NOTE | 2018-04-17 11:59 | Pulmonology Consult Note ---
<Jac Kilgore M - Last Filed: 04/17/18 13:22> Date of Encounter: 04/17/18 Medications and Allergies Sertraline [Zoloft] 50 mg PO HS 01/28/16 [History] Albuterol Sulfate [Proair Hfa] 2 puff IH Q6H PRN 05/23/16 [History] clonazePAM [Klonopin] 0.5 mg PO BID 08/08/16 [History] Furosemide [Lasix] 40 mg PO DAILY 08/14/17 [History] Ipratropium Neb [Atrovent Neb] 0.5 mg IH QID PRN 08/14/17 [History] Mometasone/Formoterol [Dulera 200 Mcg/5 Mcg Inhaler] 2 puff IH BID 08/14/17 [ History] Montelukast [Singulair] 10 mg PO QPM 08/14/17 [History] Iron Ps Cmplx/Vit B12/FA [Poly-Iron 150 Forte Capsule] 1 each PO DAILY 12/23/17 [History] Tiotropium Anthon [Spiriva Respimat] 2 puff IH DAILY 12/23/17 [History] Albuterol Neb [Proventil Neb] 2.5 mg IH TID #30 inhsol 12/25/17 [Rx] GuaiFENesin ER [Mucinex] 600 mg PO BID PRN #60 tbbp.12hr 12/25/17 [Rx] Ipratropium/Albuterol Neb [Duoneb] 3 ml IH [id number] PRN #30 inhsol 12/25/17 [Rx] Loratadine [Claritin] 10 mg PO DAILY #30 tablet 12/25/17 [Rx] predniSONE [PredniSONE] 10 mg PO DAILY #31 tablet 12/25/17 [Rx] Insulin LISPRO [HumaLOG] 0 units SQ TIDWM PRN 04/17/18 [History] Umeclidinium Anthon [Incruse Ellipta] 62.5 mcg IH DAILY 04/17/18 [History] dilTIAZem HCl [Diltiazem HCl] 120 mg PO DAILY 04/17/18 [History] 3 Allergy/AdvReac Type Severity Reaction Status Date / Time levofloxacin [From Levaquin] Allergy Anaphylaxis Verified 09/03/17 12:21 Penicillins [PCN] Allergy Anaphylaxis Verified 09/03/17 12:21 All Systems: The remainder of the systems were reviewed and are negative Physical Examination Vital Signs: Vital Signs, Last 4 Hours Temp Pulse Resp BP Pulse Ox 04/17/18 11:35 97.7 F 79 16 165/99 90 Results - Laboratory Findings CBC and BMP: 04/17/18 06:22 04/17/18 06:22 ABG ABG pH 7.31 pH Units (7.32-7.45) L 04/16/18 23:21 ABG pCO2 39 mmHg (35-45) 04/16/18 23:21 ABG pO2 121 mmHg (85-104) H 04/16/18 23:21 ABG O2 Saturation 98 % (95-98) 04/16/18 23:21 Abnormal lab findings: Abnormal lab results ABG pH 7.31 pH Units (7.32-7.45) L 04/16/18 23:21 ABG pO2 121 mmHg (85-104) H 04/16/18 23:21 ABG HCO3 20 mEq/L (21-27) L 04/16/18 23:21 ABG Base Excess -6 mEq/L (-2 to 3) L 04/16/18 23:21 Chloride 109 mEq/L (98-107) H 04/17/18 06:22 Carbon Dioxide 18 mEq/L (23-29) L 04/17/18 06:22 BUN 21 mg/dL (6-20) H 04/17/18 06:22 Glucose 391 mg/dL (70-105) H 04/17/18 06:22 Hemoglobin A1c 6.3 % (-5.6) H 04/16/18 22:32 Calculated Osmolality 301 (280-300) H 04/17/18 06:22 Phosphorus 2.6 mg/dL (2.7-4.5) L 04/17/18 06:22 Entero/Rhino (PCR) DETECTED (Not Detect) A 04/17/18 01:55 - Microbiology Findings Microbiology Findings: Microbiology, Last 48 Hours 04/17/18 01:55 Legionella Antigen - Final Urine,Clean Catch Streptococcus pneumoniae Antigen (M - Final - Clinical Findings Intake & Output: Intake & Output 04/16/18 04/17/18 04/17/18 23:59 07:59 15:59 Intake Total 250 / 1310 Output Total 150 / 150 Balance 250 / 1310 -150 / -150 Consult Discharge Plan - Plan Referrals: Michael Salazar MD [Primary Care Provider] - 04/27/18 10:15 am - Attending Attestation I examined this patient and my medical decision-making was reviewed with the Resident Physician. I agree with the documented findings, disposition and treatment plan as described except to the extent set forth below. Patient seen and examined. Labs, radiology, chart personally reviewed. Agree with resident's history and physical, assessment, plan with following comments: T[place]: Patient follows commands, Pulmonary: Acceptable oxygenation and ventilation. Patient is known to me from outpatient clinic and overall she is feeling much better at this time and she feels she is at her baseline. Reviewed CT chest with the resident's and there is evidence of scarring and rhonchitic Tase is to my review in the right middle lobe and aspiration as well as Mycobacterium infection non-TB can be sometimes seen in patient with right middle lobe disease and differential diagnosis is ABPA and testing with IgE and Aspergillus gallactomanon has been ordered. Patient was advised to follow up in the clinic as scheduled. Thank you for consultation. <Santosh Mendez - Last Filed: 04/17/18 14:02> Date of Encounter: 04/17/18 Time of Encounter: 11:30 Assessment and Plan (1) CAP (community acquired pneumonia) Current Visit: Yes Status: Acute WBC within normal limits. Afebrile. Stable vital signs. Upon reviewing the CT of the chest, there is notable bronchiectasis most prominent on the R side. Common causes of bronchiectasis in setting of PNA include mycoplasma and aspergillus fumigatus. M. PNA PCR lab is already negative. Patient on azithromycin and ceftriaxone Day 1. - Follow-up with sputum cultures. - Legionella Ag test. - Strep test - IgE test for Aspergillus - Galactomannan test for Aspergillus - continue antibiotics. Chest X-Ray 04/16/18 18:21 IMPRESSION: Mild prominence of interstitial markings which is nonspecific and could be in part chronic. Superimposed edema cannot be entirely excluded. An early infiltrate cannot be excluded in the right lung base. Follow up to resolution is suggested. D/ / 04/16/2018 19:03:03 Kassie Ellis MD / jia Interpreting Provider: Kassie Ellis MD Chest CTA 04/16/18 21:44 IMPRESSION: Patchy multifocal airspace disease bilaterally, atelectasis versus pneumonia. No findings diagnostic of pulmonary embolus D/ / Reginald Segovia / Reginald Segovia Interpreting Provider: Reginald Segovia Qualifiers: Laterality: right Lung location: lower lobe of lung Qualified Code(s): J18.1 - Lobar pneumonia, unspecified organism (2) Acute and chronic respiratory failure Current Visit: Yes Status: Acute Likely secondary to PNA, asthma/COPD exacerbation, and CHF exacerbation. Patient on CPAP 30% FiO2 at 95%. Currently 90% O2 at 4 L NC. - continue scheduled duonebs. - continue CPAP. - continue solu-medrol. Qualifiers: Respiratory failure complication: hypoxia Qualified Code(s): J96.21 - Acute and chronic respiratory failure with hypoxia (3) Severe persistent asthma with exacerbation Current Visit: Yes Status: Acute See plan above. (4) Acute exacerbation of CHF (congestive heart failure) Current Visit: Yes Status: Acute Known history of mild-moderate mitral regurgitation. Last MALLORY on 12/2017. BNP of 34. Currently on lasix 40 mg IVP BID. Cardiology is following. - Management per recommendations of cardiology. Qualifiers: Heart failure type: diastolic Qualified Code(s): I50.33 - Acute on chronic diastolic (congestive) heart failure History of Present Illness Consult date: 04/17/18 Requesting physician: Alecia Howell Reason for consult: asthma Chief complaint: SOB, cough History of present illness: Patient is a 37 year old female with a PMH of asthma, COPD, CHF, and mitral stenosis that presents for dyspnea with hypoxia. Patient says her symptoms began 7 days ago. She admits to wheezing. She denies any fever. After 2 days her dyspnea became worse and she went to her PCP who started her on a prednisone taper at 60 mg. She still continued to worsen and 2 days later she started developing swelling in her upper and lower extremities in addition to a dry cough. She did admit to some orthopnea. She subsequently went to urgent care where she was put on laratadine and azithromycin, in the belief that she had either allergies vs bacterial PNA. Patient continued to worsen. She normally takes in 4 L of O2 at home at night and she started using 5 L. Patient reported to the ED on 04/16/18 where she was found to be hypoxic at 89%. She was given duo nebs 3 and placed on BiPAP. Chest x-ray showed right infiltrate. Patient was also given Solu-Medrol, magnesium sulfate, ceftriaxone, and azithromycin. Patient denies any recent illness. She also denies any sick contacts at home. When seen today, she still admits to shortness of breath, but attests that it has improved since admission. She denies any chest pain. Denies any fever or chills. Denies any abdominal pain, nausea, or vomiting. She does still admit to swelling of her upper and lower extremities still. Past Med Surg Social Fam HX - Past Medical History Medical history: asthma, CHF, COPD, diabetes, GERD Additional medical history: "heart problems" Psychiatric history: anxiety, depression - Past Surgical History Surgical History: , cholecystectomy Additional surgical history: Tubal Ligation - Social History Smoking Status: Current every day smoker Smokeless Tobacco Status: No Alcohol use: none Drug use: none - Family History Mother Living Status: Still Living Hx Family Cardiac Disorders: Yes (pvd) Hx Family Respiratory Disorders: Yes (copd) Father Living Status: Hx Family Cardiac Disorders: Yes (htn) Hx Family Respiratory Disorders: Yes Hx Family Cancer: Yes (bone and breast) Hx Family GI Disorders: Yes Hx Family Endocrine Disorder: No Hx Family Neuromuscular Disorders: No Hx Family Neurologic Disorders: No Hx Family HEENT Disorders: No Hx Family Autoimmune Disorders: No All Systems: The remainder of the systems were reviewed and are negative - Constitutional Constitutional: weakness, no fever(s) - Cardiovascular Cardiovascular: dyspnea, edema, orthopnea, pedal edema, no chest pain - Respiratory Respiratory: cough, dyspnea, wheezing, no chest congestion - Gastrointestinal Gastrointestinal: no abdominal pain, no diarrhea, no nausea, no vomiting - Psychiatric Psychiatric: as per HPI Physical Examination Vital Signs: Vital Signs, Last 4 Hours Temp Pulse Resp BP Pulse Ox 04/17/18 11:35 97.7 F 79 16 165/99 90 General appearance: no acute distress Eyes: nonicteric ENT: oropharynx moist Neck: supple Auscultation: bilateral: wheezes (Anterior + posterior) Cardiovascular: regular rate and rhythm Gastrointestinal: normoactive bowel sounds, soft, non-tender, non-distended Integumentary: normal Extremities: no cyanosis, no clubbing, pink and warm, pulses normal, no ischemia or petechiae, edema (B/L +1 pedeal pitting edema. B/L non-pitting edema of hands. ) Musculoskeletal: no deformities, ROM normal normal mental status mood appropriate, affect normal Results - Laboratory Findings CBC and BMP: 04/17/18 06:22 04/17/18 06:22 ABG ABG pH 7.31 pH Units (7.32-7.45) L 04/16/18 23:21 ABG pCO2 39 mmHg (35-45) 04/16/18 23:21 ABG pO2 121 mmHg (85-104) H 04/16/18 23:21 ABG O2 Saturation 98 % (95-98) 04/16/18 23:21 Abnormal lab findings: Abnormal lab results ABG pH 7.31 pH Units (7.32-7.45) L 04/16/18 23:21 ABG pO2 121 mmHg (85-104) H 04/16/18 23:21 ABG HCO3 20 mEq/L (21-27) L 04/16/18 23:21 ABG Base Excess -6 mEq/L (-2 to 3) L 04/16/18 23:21 Chloride 109 mEq/L (98-107) H 04/17/18 06:22 Carbon Dioxide 18 mEq/L (23-29) L 04/17/18 06:22 BUN 21 mg/dL (6-20) H 04/17/18 06:22 Glucose 391 mg/dL (70-105) H 04/17/18 06:22 Hemoglobin A1c 6.3 % (-5.6) H 04/16/18 22:32 Calculated Osmolality 301 (280-300) H 04/17/18 06:22 Phosphorus 2.6 mg/dL (2.7-4.5) L 04/17/18 06:22 Entero/Rhino (PCR) DETECTED (Not Detect) A 04/17/18 01:55 - Microbiology Findings Microbiology Findings: Microbiology, Last 48 Hours 04/17/18 01:55 Legionella Antigen - Final Urine,Clean Catch Streptococcus pneumoniae Antigen (M - Final - Clinical Findings Intake & Output: Intake & Output 04/16/18 04/17/18 04/17/18 23:59 07:59 15:59 Intake Total 250 / 1310 Output Total 150 / 150 Balance 250 / 1310 -150 / -150
[2018-04-17] MEDS: Budesonide/Formoterol 160/4.5 MDI IH SCH ×2 (12:01→19:53)
[2018-04-17] MEDS: Insulin LISPRO 300 UNITS/3 ML VIAL SQ SCH ×3 (12:14→22:34)
[2018-04-17] MEDS: Insulin DETEMIR 100 UNIT/ML X5UNITS SQ SCH ×2 (12:18→21:14)
[2018-04-17] MEDS: Furosemide 40 MG/4 ML VIAL IVP SCH (16:36)
[2018-04-17] MEDS: Azithromycin 500 MG in D5% in Water 250 ML IVPB SCH (16:59)
--- NOTE | 2018-04-17 17:44 | Electrocardiograph Report ---
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
[2018-04-17] MEDS ORDERED: Perflutren Lipid Microsphere 1.3 ML in 0.9 % Sodium Chloride 8.7 ML IVP ONE (18:46)
[2018-04-18] MEDS: methylPREDNISolone 125 MG/2 ML VIAL IVP SCH ×3 (00:06→16:55)
[2018-04-18] MEDS: Ipratropium/Albuterol Neb 3 ML IH SCH ×5 (03:39→20:24)
[2018-04-18] MEDS: *HR* Heparin 5,000 UNIT/ML VIAL SQ SCH ×2 (06:04→16:56)
[2018-04-18] MEDS: Budesonide/Formoterol 160/4.5 MDI IH SCH ×2 (08:11→20:24)
[2018-04-18] MEDS: Loratadine 10 MG TABLET PO SCH (08:18)
[2018-04-18] MEDS: clonazePAM 0.5 MG TABLET PO SCH ×2 (08:19→21:02)
[2018-04-18] MEDS: Diltiazem CD (24hr) 120 MG CAPSULE PO SCH (08:19)
[2018-04-18] MEDS: Furosemide 40 MG/4 ML VIAL IVP SCH ×2 (08:19→16:56)
[2018-04-18] MEDS: cefTRIAXone 1,000 MG in Water for inj. (sterile) 20 ML 10 ML IVP SCH (08:19)
[2018-04-18] MEDS: Insulin LISPRO 300 UNITS/3 ML VIAL SQ SCH ×6 (08:20→21:02)
[2018-04-18] MEDS: [UNRECOGNIZED DRUG - OTHER] PO SCH (08:20)
[2018-04-18] MEDS: VIT B12 PO SCH (08:20)
[2018-04-18] MEDS: IRON PS CMPLX PO SCH (08:20)
--- NOTE | 2018-04-18 09:33 | Internal Med Progress Note ---
Date of Encounter: 04/18/18 Time of Encounter: 09:33 - Assessment and plan (1) Acute asthma exacerbation Current Visit: No Status: Acute Assessment and plan: secondary to rhinovirus infection slow improvement pulmonology appreciated: cont current medicines, r/o non-TB mycobacterium or ABPA infection considering RML involvement Qualifiers: Asthma severity: severe Asthma persistence: unspecified Qualified Code(s) : J45.901 - Unspecified asthma with (acute) exacerbation (2) CAP (community acquired pneumonia) Current Visit: Yes Status: Acute Assessment and plan: azithro + ceftriaxone, cont current treatment per pulmonology, will discuss whether Abx can be stopped now that legionella, strep antigens are negative, no leukocytosis and rhinovirus as a likely etiology of flare of asthma Qualifiers: Laterality: right Lung location: middle lobe of lung Qualified Code(s): J18.1 - Lobar pneumonia, unspecified organism (3) Rhinovirus infection Current Visit: Yes Status: Acute Assessment and plan: supportive management as above (4) Mitral regurgitation Current Visit: Yes Status: Acute Assessment and plan: cardiology following tolerating Lasix, cont for now Qualifiers: Cardiac valve disease etiology: etiology unspecified Qualified Code(s): I34.0 - Nonrheumatic mitral (valve) insufficiency (5) Steroid-induced hyperglycemia Current Visit: Yes Status: Acute Assessment and plan: HbA1C 6.3% On solumedrol Start Lispro AC, cont sliding scale insulin. Increase Detemir Cautious;y watch and proactively decrease dose when weaning down on steroids - Time Spent With Patient Total time spent is greater than 50% in coordination of care (as documented) at patient's floor/unit and/or counseling patient: - Subjective Interval history: 3L/NC at home Dyspnea slightly improved, not back to baseline yet Cough, no sputum No n, v, abd pain - Constitutional Vitals: Temp Pulse Resp BP Pulse Ox 97.4 F L 82 16 149/95 96 04/18/18 08:09 04/18/18 08:09 04/18/18 08:11 04/18/18 08:09 04/18/18 08:11 General appearance: Present: A&O X 3, no acute distress - Head Head exam: Present: atraumatic, normocephalic - Eye Eye exam: Present: conjuntiva pink, sclera anicteric. Absent: scleral icterus - Neck Neck exam general surgery: Present: supple. Absent: nuchal rigidity, trachea midline - Respiratory Respiratory exam: Present: prolonged expiratory phase, rhonchi, wheezes. Absent : accessory muscle use, chest wall tenderness, rales, respiratory distress, stridor - Cardiovascular Cardiovascular exam: Present: RRR, +S1, +S2. Absent: diastolic murmur, gallop, rubs, systolic murmur - GI/Abdominal GI/Abdominal exam: Present: normal bowel sounds, soft, no peritoneal signs. Absent: distended, guarding, tenderness - Extremities Exam Extremities exam: Present: warm, radial pulses palpable and symmetrical. Absent : cyanotic, pedal edema - Neurological Exam Neurological exam: Present: alert, oriented X3, no focal deficits. Absent: pronater drift, facial droop, speech deficit - Skin Skin exam: Present: dry, intact Internal Medicine: Result - Labs CBC & Chem 7: 04/17/18 06:22 04/17/18 06:22 - ABG Interpretation ABG results: ABG ABG pH 7.31 pH Units (7.32-7.45) L 04/16/18 23:21 ABG pCO2 39 mmHg (35-45) 04/16/18 23:21 ABG pO2 121 mmHg (85-104) H 04/16/18 23:21 ABG O2 Saturation 98 % (95-98) 04/16/18 23:21 - Impressions Impressions Echocardiogram 04/17/18 11:06 Impressions: LVEF 65-70%. Mild left ventricular diastolic dysfunction. Moderate mitral stenosis. Left Ventricular Wall Motion: Rest Echo Findings The apex, apical inferior, mid inferior, basal inferior, apical anterior, mid anterior, basal anterior, apical septal, mid inferior septal, basal inferior septal, apical lateral, mid anterior lateral, basal anterior lateral, mid anterior septal, mid inferior lateral, basal anterior septal and basal inferior lateral overton were hyperkinetic. Findings: Study Quality * Technically adequate exam. Right Ventricle * Normal right ventricular structure and function. Aortic Valve * Trileaflet aortic valve with normal function. Aorta * Normally sized aortic root. Pericardium * The pericardium appears normal. ECG Findings * Normal sinus rhythm. Left Ventricle * LVEF 65-70%. * Mild left ventricular diastolic dysfunction. Mitral Valve * Moderate mitral stenosis. * Mean transmitral gradient is mean gradient 9mmHg mmHg. * No mitral regurgitation. Not well visualized Interatrial Septum * Interatrial septum not well evaluated. Right Atrium * Right atrium is not well visualized. Left Atrium * Normal left atrial size. * subcostal view not available IVC * The IVC is not well evaluated. Tricuspid Valve * Trace tricuspid regurgitation. * No tricuspid stenosis. * Estimated RVSP is 24 mmHg. * No evidence of pulmonary hypertension. Consult Discharge Plan - Plan Referrals: Michael Salazar MD [Primary Care Provider] - 04/27/18 10:15 am
--- NOTE | 2018-04-18 09:47 | Pulmonology Progress Note ---
<LouloupeñaWon - Last Filed: 04/18/18 13:54> Date of Encounter: 04/18/18 Time of Encounter: 09:47 Assessment and Plan (1) Asthma with exacerbation Current Visit: Yes Status: Acute 1. Continue current treatments 2. CT reviewed yesterday and have ordered additional testing for mycoplasma and Aspergillus. Strep pneumo and Legionella were negative. 3. Patient reports Qualifiers: Asthma severity: severe Asthma persistence: persistent Qualified Code(s) : J45.51 - Severe persistent asthma with (acute) exacerbation Subjective Principal diagnosis: asthma Interval history: patient reports feeling about the same today. still SOB, wheezy, chest tightness but denies pain. No fever. No abd pain, n/v/d Objective PUL Vital signs: Last Vital Signs Temp 97.4 F L 04/18/18 08:09 Pulse 82 04/18/18 08:09 Resp 16 04/18/18 08:11 BP 149/95 04/18/18 08:09 Pulse Ox 96 04/18/18 08:11 General appearance: no acute distress, alert Eyes: nonicteric ENT: oropharynx moist Neck: supple Effort: mildly labored Auscultation: bilateral: wheezes Cardiovascular: regular rate and rhythm Gastrointestinal: normoactive bowel sounds, non-distended Integumentary: normal Extremities: no cyanosis, no edema, no clubbing Musculoskeletal: no deformities, ROM normal normal mental status, non-focal exam mood appropriate, affect normal Results - Laboratory Findings CBC and BMP: 04/17/18 06:22 04/17/18 06:22 ABG ABG pH 7.31 pH Units (7.32-7.45) L 04/16/18 23:21 ABG pCO2 39 mmHg (35-45) 04/16/18 23:21 ABG pO2 121 mmHg (85-104) H 04/16/18 23:21 ABG O2 Saturation 98 % (95-98) 04/16/18 23:21 Abnormal lab findings: Abnormal lab results ABG pH 7.31 pH Units (7.32-7.45) L 04/16/18 23:21 ABG pO2 121 mmHg (85-104) H 04/16/18 23:21 ABG HCO3 20 mEq/L (21-27) L 04/16/18 23:21 ABG Base Excess -6 mEq/L (-2 to 3) L 04/16/18 23:21 Chloride 109 mEq/L (98-107) H 04/17/18 06:22 Carbon Dioxide 18 mEq/L (23-29) L 04/17/18 06:22 BUN 21 mg/dL (6-20) H 04/17/18 06:22 Glucose 391 mg/dL (70-105) H 04/17/18 06:22 POC Glucose 392 mg/dL (70-99) H 04/17/18 21:16 Hemoglobin A1c 6.3 % (-5.6) H 04/16/18 22:32 Calculated Osmolality 301 (280-300) H 04/17/18 06:22 Phosphorus 2.6 mg/dL (2.7-4.5) L 04/17/18 06:22 Entero/Rhino (PCR) DETECTED (Not Detect) A 04/17/18 01:55 - Microbiology Findings Microbiology Findings: Microbiology, Last 48 Hours 04/17/18 01:55 Legionella Antigen - Final Urine,Clean Catch Streptococcus pneumoniae Antigen (M - Final - Clinical Findings Intake & Output: Intake & Output 04/17/18 04/18/18 04/18/18 23:59 07:59 15:59 Intake Total 250 / 250 500 / 500 Balance 250 / 250 500 / 500 Weight 171.8 kg Consult Discharge Plan - Plan Referrals: Michael Salazar MD [Primary Care Provider] - 04/27/18 10:15 am <Jac Kilgore M - Last Filed: 04/18/18 14:31> Date of Encounter: 04/18/18 Objective PUL Vital signs: Last Vital Signs Temp 97.6 F 04/18/18 11:54 Pulse 75 04/18/18 11:54 Resp 16 04/18/18 11:54 BP 142/85 04/18/18 11:54 Pulse Ox 94 04/18/18 11:54 Results - Laboratory Findings CBC and BMP: 04/17/18 06:22 04/17/18 06:22 ABG ABG pH 7.31 pH Units (7.32-7.45) L 04/16/18 23:21 ABG pCO2 39 mmHg (35-45) 04/16/18 23:21 ABG pO2 121 mmHg (85-104) H 04/16/18 23:21 ABG O2 Saturation 98 % (95-98) 04/16/18 23:21 Abnormal lab findings: Abnormal lab results ABG pH 7.31 pH Units (7.32-7.45) L 04/16/18 23:21 ABG pO2 121 mmHg (85-104) H 04/16/18 23:21 ABG HCO3 20 mEq/L (21-27) L 04/16/18 23:21 ABG Base Excess -6 mEq/L (-2 to 3) L 04/16/18 23:21 Chloride 109 mEq/L (98-107) H 04/17/18 06:22 Carbon Dioxide 18 mEq/L (23-29) L 04/17/18 06:22 BUN 21 mg/dL (6-20) H 04/17/18 06:22 Glucose 391 mg/dL (70-105) H 04/17/18 06:22 POC Glucose 392 mg/dL (70-99) H 04/17/18 21:16 Hemoglobin A1c 6.3 % (-5.6) H 04/16/18 22:32 Calculated Osmolality 301 (280-300) H 04/17/18 06:22 Phosphorus 2.6 mg/dL (2.7-4.5) L 04/17/18 06:22 Entero/Rhino (PCR) DETECTED (Not Detect) A 04/17/18 01:55 - Microbiology Findings Microbiology Findings: Microbiology, Last 48 Hours 04/17/18 01:55 Legionella Antigen - Final Urine,Clean Catch Streptococcus pneumoniae Antigen (M - Final - Clinical Findings Intake & Output: Intake & Output 04/17/18 04/18/18 04/18/18 23:59 07:59 15:59 Intake Total 250 / 250 500 / 500 800 / 800 Balance 250 / 250 500 / 500 800 / 800 Weight 171.8 kg - Attending Attestation I examined this patient and my medical decision-making was reviewed with the Resident Physician. I agree with the documented findings, disposition and treatment plan as described except to the extent set forth below. Patient seen and examined. Labs, radiology, chart personally reviewed. Agree with resident's history and physical, assessment, plan with following comments: CONSULTANT INTERN: Patient follows commands, Pulmonary: Acceptable oxygenation and ventilation. Patient stated that is no significant changes from yesterday and if patient discharged home pending labs can be followed up as outpatient. Continue bronchodilators and current treatment.
[2018-04-18] MEDS: Azithromycin 500 MG in D5% in Water 250 ML IVPB SCH (16:56)
[2018-04-18] MEDS: Insulin DETEMIR 100 UNIT/ML X5UNITS SQ SCH (21:02)
[2018-04-19] MEDS: methylPREDNISolone 125 MG/2 ML VIAL IVP SCH ×2 (00:04→09:44)
[2018-04-19] MEDS: Ipratropium/Albuterol Neb 3 ML IH SCH ×6 (00:33→20:22)
[2018-04-19 05:11] LABS: Hematocrit 44.5 % (35.3-44.9); Hemoglobin 15.6 g/dL (11.5-15.4); Mean Corpuscular HGB Conc 35.1 g/dL (31.6-35.5); Mean Corpuscular Hemoglobin 28.9 pg (28.0-33.3); Mean Corpuscular Volume 82.4 fL (83.0-100.0); Mean Platelet Volume 9.4 fL (9.4-12.4); Platelet Count 249 K/mcL (140-400); Red Cell Distribution Width 12.5 % (11.5-14.5)
[2018-04-19 05:39] LABS: BUN/Creatinine Ratio 33 (6-26); Blood Urea Nitrogen 34 mg/dL (6-20); Calcium 9.3 mg/dL (8.6-10.3); Carbon Dioxide 20 mEq/L (23-29); Chloride 101 mEq/L (98-107); Glucose 422 mg/dL (70-105); Osmolality,Calculated 296 (280-300); Potassium 4.2 mEq/L (3.5-5.1); Sodium 130 mEq/L (136-145); eGFR For African Americans > 60 (> 60); eGFR For Non-African Americans 59 (> 60)
[2018-04-19] MEDS: *HR* Heparin 5,000 UNIT/ML VIAL SQ SCH ×2 (06:07→17:42)
[2018-04-19] MEDS: Budesonide/Formoterol 160/4.5 MDI IH SCH ×2 (08:46→20:22)
[2018-04-19] MEDS: Diltiazem CD (24hr) 120 MG CAPSULE PO SCH ×2 (09:43→10:12)
[2018-04-19] MEDS: clonazePAM 0.5 MG TABLET PO SCH ×2 (09:43→21:22)
[2018-04-19] MEDS: Loratadine 10 MG TABLET PO SCH (09:44)
[2018-04-19] MEDS: Furosemide 40 MG/4 ML VIAL IVP SCH ×2 (09:44→17:41)
[2018-04-19] MEDS: cefTRIAXone 1,000 MG in Water for inj. (sterile) 20 ML 10 ML IVP SCH (09:45)
[2018-04-19] MEDS: Insulin LISPRO 300 UNITS/3 ML VIAL SQ SCH ×7 (09:51→21:23)
[2018-04-19] MEDS: [UNRECOGNIZED DRUG - OTHER] PO SCH (10:12)
[2018-04-19] MEDS: IRON PS CMPLX PO SCH (10:12)
[2018-04-19] MEDS: VIT B12 PO SCH (10:12)
--- NOTE | 2018-04-19 12:58 | Internal Med Progress Note ---
Date of Encounter: 04/19/18 Time of Encounter: 12:56 - Assessment and plan (1) Acute asthma exacerbation Current Visit: No Status: Acute Assessment and plan: secondary to rhinovirus infection slow improvement pulmonology appreciated: cont current medicines, r/o non-TB mycobacterium or ABPA infection considering RML involvement, can follow results as OP Ambulate Switch Solumedrol to PO prednisone, ensure her resp status is better before discharge Qualifiers: Asthma severity: severe Asthma persistence: unspecified Qualified Code(s) : J45.901 - Unspecified asthma with (acute) exacerbation (2) CAP (community acquired pneumonia) Current Visit: Yes Status: Acute Assessment and plan: legionella, strep antigens are negative leukocytosis likely due to steroids DC azithromycin can likely DC ceftriaxone tomorrow Qualifiers: Laterality: right Lung location: middle lobe of lung Qualified Code(s): J18.1 - Lobar pneumonia, unspecified organism (3) Rhinovirus infection Current Visit: Yes Status: Acute Assessment and plan: supportive management as abov (4) Mitral regurgitation Current Visit: Yes Status: Acute Assessment and plan: cardiology following tolerating Lasix, switch to PO on discharge Qualifiers: Cardiac valve disease etiology: etiology unspecified Qualified Code(s): I34.0 - Nonrheumatic mitral (valve) insufficiency (5) Steroid-induced hyperglycemia Current Visit: Yes Status: Acute Assessment and plan: HbA1C 6.3% Pseudohyponatremia, corrected Na 138 Glucose 400's, due to steroids and non-adherence Cont current dose of Lispro AC, sliding scale insulin and Detemir as stopping Solumedrol today and will expect improvement Cautiously watch and proactively decrease dose based on trend tomorrow - Time Spent With Patient Total time spent is greater than 50% in coordination of care (as documented) at patient's floor/unit and/or counseling patient: - Subjective Interval history: 3L/NC at home Dyspnea slightly improved, 50% back to baseline, felt drained by walking in the hallway chest tightness with dyspnea, no pain Cough, no sputum No n, v, abd pain - Constitutional Vitals: Temp Pulse Resp BP Pulse Ox 97.8 F 72 18 161/97 91 04/19/18 11:09 04/19/18 11:09 04/19/18 11:37 04/19/18 11:04/19/18 11:37 General appearance: Present: A&O X 3, morbidly obese, no acute distress - Head Head exam: Present: atraumatic, normocephalic - Eye Eye exam: Present: PERRL, conjuntiva pink, sclera anicteric Pupils: Present: PERRL - Neck Neck exam general surgery: Present: supple, trachea midline. Absent: nuchal rigidity - Respiratory Respiratory exam: Present: decreased breath sounds, prolonged expiratory phase, wheezes. Absent: accessory muscle use, rales, rhonchi - Cardiovascular Cardiovascular exam: Present: RRR, +S1, +S2. Absent: diastolic murmur, gallop, rubs, systolic murmur - GI/Abdominal GI/Abdominal exam: Present: normal bowel sounds, soft, no peritoneal signs. Absent: distended, tenderness - Extremities Exam Extremities exam: Present: warm, radial pulses palpable and symmetrical. Absent : calf tenderness, cyanotic, pedal edema - Neurological Exam Neurological exam: Present: CN II-XII intact, oriented X3, no focal deficits. Absent: facial droop, speech deficit - Skin Skin exam: Present: dry, intact Internal Medicine: Result - Labs CBC & Chem 7: 04/19/18 04:33 04/19/18 04:33 Labs: Short CBC 04/19/18 Range/Units 04:33 WBC 15.3 H D (4.3-11.1) K/mcL Hgb 15.6 H (11.5-15.4) g/dL Hct 44.5 (35.3-44.9) % Plt Count 249 (140-400) K/mcL BMP 04/19/18 04:33 Sodium 130 L Potassium 4.2 Chloride 101 Carbon Dioxide 20 L BUN 34 H Creatinine 1.04 Glucose 422 H Calcium 9.3 - ABG Interpretation ABG results: ABG ABG pH 7.31 pH Units (7.32-7.45) L 04/16/18 23:21 ABG pCO2 39 mmHg (35-45) 04/16/18 23:21 ABG pO2 121 mmHg (85-104) H 04/16/18 23:21 ABG O2 Saturation 98 % (95-98) 04/16/18 23:21 Consult Discharge Plan - Plan Referrals: Michael Salazar MD [Primary Care Provider] - 04/27/18 10:15 am
[2018-04-19] MEDS: Insulin DETEMIR 100 UNIT/ML X5UNITS SQ SCH (21:23)
[2018-04-20] MEDS: Ipratropium/Albuterol Neb 3 ML IH SCH ×7 (00:14→23:06)
[2018-04-20] MEDS: *HR* Heparin 5,000 UNIT/ML VIAL SQ SCH ×2 (06:19→17:33)
[2018-04-20] MEDS: Budesonide/Formoterol 160/4.5 MDI IH SCH ×2 (07:40→19:29)
[2018-04-20] MEDS: Furosemide 40 MG/4 ML VIAL IVP SCH ×2 (08:08→17:31)
[2018-04-20] MEDS: Loratadine 10 MG TABLET PO SCH (08:08)
[2018-04-20] MEDS: cefTRIAXone 1,000 MG in Water for inj. (sterile) 20 ML 10 ML IVP SCH (08:08)
[2018-04-20] MEDS: Diltiazem CD (24hr) 120 MG CAPSULE PO SCH (08:08)
[2018-04-20] MEDS: clonazePAM 0.5 MG TABLET PO SCH ×2 (08:08→21:20)
[2018-04-20] MEDS: Insulin LISPRO 300 UNITS/3 ML VIAL SQ SCH ×7 (08:09→21:21)
[2018-04-20] MEDS: IRON PS CMPLX PO SCH (08:10)
[2018-04-20] MEDS: VIT B12 PO SCH (08:10)
[2018-04-20] MEDS: [UNRECOGNIZED DRUG - OTHER] PO SCH (08:10)
[2018-04-20] MEDS ORDERED: predniSONE 20 MG TABLET PO SCH (09:00)
[2018-04-20 09:20] LABS: Mycoplasma pneumoniae IgG 0.25 U/L (<=0.09)
--- NOTE | 2018-04-20 12:28 | Discharge Summary ---
- NOTES TO OUTPATIENT PROVIDER Notes to Outpatient Provider: Follow-up with pulmonary medicine within 4 weeks of discharge Orders not resulted at time of discharge: Pending orders 04/17/18 11:55 Aspergillus fumigatus IgE Routine Aspergillus galactomannan Ag Routine Date of Encounter: 04/21/18 Time of Encounter: 12:00 - Discharge Diagnosis (1) Severe persistent asthma with exacerbation Priority: Primary Status: Acute Assessment and Plan: Precipitated by rhinovirus infection. CT chest shows evidence of linear atelectasis. Compounded by underlying obesity and hypoventilation. - Patient received 5 days of antibiotics including ceftriaxone and 3 days of azithromycin. She also received intravenous steroids which have been transitioned to oral steroids. She will continue her ICS/laba/lama/ singulair with when necessary albuterol after discharge. - Outpatient follow-up with pulmonary medicine recommended with pulmonary function testing when medically optimized - ABPA to be ruled out in clinic. (2) Steroid-induced hyperglycemia Priority: Secondary Status: Acute Assessment and Plan: Patient is prediabetic with a HbA1c of 6.3. Since we are weaning intravenous steroids to should subside. (3) CAP (community acquired pneumonia) Priority: Primary Status: Acute Assessment and Plan: Finish 5 days of antibiotics. Questionable pneumonia in evidence of CT chest findings. Qualifiers: Laterality: right Lung location: middle lobe of lung Qualified Code(s): J18.1 - Lobar pneumonia, unspecified organism (4) Acute and chronic respiratory failure Priority: Primary Status: Acute Assessment and Plan: She will perform exertional oximetry prior to discharge and supplement oxygen if needed will be provided. Qualifiers: Respiratory failure complication: hypoxia Qualified Code(s): J96.21 - Acute and chronic respiratory failure with hypoxia (5) Acute exacerbation of CHF (congestive heart failure) Priority: Secondary Status: Ruled-out Assessment and Plan: This was ruled out Qualifiers: Heart failure type: combined systolic and diastolic Qualified Code(s): I50.43 - Acute on chronic combined systolic (congestive) and diastolic ( congestive) heart failure (6) Mitral regurgitation Priority: Secondary Status: Acute Assessment and Plan: ELVIE 12/2017: Myxomatous appearing mitral valve leaflet. Fixed and restricted P2 leaflet tip of the posterior mitral valve. Mean gradient 6 mmHg by CWD at 92 bpm. Mild to moderate eccentric mitral regurgitation. TTE :LVEF 55-60%. Mitral valve not well visualized. Moderate mitral stenosis by mean gradient 7mmHg but mitral valve poorly visualized secondary to poor windows from body habitus. If clinically indicated, consider elective outpatient ELVIE to further evaluate mitral valve. No evidence of pulmonary HTN or other significant valve disease. He was seen in cardiology clinic in January 2018. A repeat echo in 6 months was recommended. No further recommendations were made by cardiology and patient. She should maintain her follow-up. Qualifiers: Cardiac valve disease etiology: etiology unspecified Qualified Code(s): I34.0 - Nonrheumatic mitral (valve) insufficiency (7) Obstructive sleep apnea Priority: Secondary Status: Chronic Assessment and Plan: She will need outpatient sleep study with pseudo-monitoring to rule out obesity hypoventilation. (8) Morbid obesity with BMI of 50.0-59.9, adult Priority: Secondary Status: Chronic Hospital course: Ms. Sweet is a 37 year old female with prior medical history of asthma, untreated obstructive sleep apnea, morbid obesity, mitral valve prolapse, congestive heart failure, chronic respiratory failure with hypoxemia requiring supplemental oxygen overnight who presented to the emergency room with 5 days of shortness of breath. She was started on a prednisone taper about a week prior to admission. However, her symptoms do not improve and she decided come to the emergency room. There was also concern of pneumonia. Initial chest x- ray was limited by patient's body habitus. A follow-up CT chest was obtained which showed linear atelectasis(likely) versus patchy multifocal infiltrate. She received 5 days of coronary required pneumonia Coverage. Respiratory PCR was suggestive of rhinovirus infection. She also received intravenous steroids and transitioned to oral steroids. These will be continued at discharge. She will continue her LABA/LAMA/ICS/singulair at discharge. A follow-up with pulmonary was advised. A sleep study should be obtained in clinic with CO2 monitoring. Pulmonary medicine was consulted. They were concerned about allergic broncho-pulmonary aspergillosis. IgE and Aspergillus precipitins and antibodies can be sent from clinic. We will do for this to her follow-up appointment. Today being day 5 of admission, patient is still wheezing and requiring supplemental oxygen. She will be provided supplemental oxygen and gradually weaned off when seen in clinic. Discharge discussed with: patient, family - Time Spent with Patient Total time spent providing and/or coordinating discharge services: Greater than 30 minutes - Discharge Medications Prescriptions: PredniSONE [Deltasone] 60 mg PO DAILY #15 tablet Home Medications: Sertraline [Zoloft] 50 mg PO HS 01/28/16 [History] Albuterol Sulfate [Proair Hfa] 2 puff IH Q6H PRN 05/23/16 [History] clonazePAM [Klonopin] 0.5 mg PO BID 08/08/16 [History] Furosemide [Lasix] 40 mg PO DAILY 08/14/17 [History] Ipratropium Neb [Atrovent Neb] 0.5 mg IH QID PRN 08/14/17 [History] Mometasone/Formoterol [Dulera 200 Mcg/5 Mcg Inhaler] 2 puff IH BID 08/14/17 [ History] Montelukast [Singulair] 10 mg PO QPM 08/14/17 [History] Iron Ps Cmplx/Vit B12/FA [Poly-Iron 150 Forte Capsule] 1 each PO DAILY 12/23/17 [History] Tiotropium [place] [Spiriva Respimat] 2 puff IH DAILY 12/23/17 [History] Albuterol Neb [Proventil Neb] 2.5 mg IH TID #30 inhsol 12/25/17 [Rx] GuaiFENesin ER [Mucinex] 600 mg PO BID PRN #60 tbbp.12hr 12/25/17 [Rx] Ipratropium/Albuterol Neb [Duoneb] 3 ml IH [id number] PRN #30 inhsol 12/25/17 [Rx] Loratadine [Claritin] 10 mg PO DAILY #30 tablet 12/25/17 [Rx] predniSONE [PredniSONE] 10 mg PO DAILY #31 tablet 12/25/17 [Rx] Insulin LISPRO [HumaLOG] 0 units SQ TIDWM PRN 04/17/18 [History] Umeclidinium [place] [Incruse Ellipta] 62.5 mcg IH DAILY 04/17/18 [History] dilTIAZem HCl [Diltiazem HCl] 120 mg PO DAILY 04/17/18 [History] PredniSONE [Deltasone] 60 mg PO DAILY #15 tablet 04/20/18 [Rx] Allergies/Adverse Reactions: 3 Allergy/AdvReac Type Severity Reaction Status Date / Time levofloxacin [From Levaquin] Allergy Anaphylaxis Verified 09/03/17 12:21 Penicillins [PCN] Allergy Anaphylaxis Verified 09/03/17 12:21 Date of admission: 04/16/18 23:27 Primary care physician: Michael Salazar MD Consults: 04/17/18 09:05 Consult to Nurse Navigator [CONS] Routine Comment: PNEUMONIA 04/17/18 09:46 Consult to Cardiology [CONS] Routine Comment: Consulting Provider: Cardiology [place] Reason for Consult: CHF exacerbation , Mitral stenosis , march elvie Call Completed: Yes 04/17/18 09:51 Consult to Pulmonology [CONS] Routine Consulting Provider: [facility] Reason for Consult: Asthma exacerbation Call Completed: Yes Discharging clinician: Urmila Cespedes Anticipated date of discharge: 04/20/18 - Constitutional Vitals: Temp Pulse Resp BP Pulse Ox 97.5 F L 87 18 149/86 93 04/20/18 11:15 04/20/18 11:15 04/20/18 11:35 04/20/18 11:15 04/20/18 11:35 General appearance: Present: A&O X 3, morbidly obese, no acute distress Exam: Physical exam Gen: Comfortable, laying in bed, in no visible distress HEENT: Normocephalic, atraumatic. No conjunctival icterus. Moist oral mucosa. Neck: Supple Lungs: Clear to auscultation, wheezing Heart: Normal S1-S2, no murmurs rubs or gallops Abdomen: Normoactive bowel sounds, no guarding rigidity or tenderness Extremities: No edema clubbing or cyanosis Neuro: Alert oriented 3, no focal deficits Skin: No skin lesions - Patient Status Disposition: Home, Self-Care Condition: Good Functional capacity at discharge: independent ambulation Overall status at discharge: patient is progressing back to baseline - Discharge Instructions Follow Up With: Michael Salazar MD [Primary Care Provider] - 04/27/18 10:15 am Jac Kilgore MD [Partnered Physician] - Additional Instructions: Follow-up with pulmonary medicine in 4 weeks - Diet and Activity Activity: resume usual activities as tolerated Diet: low fat, low cholesterol
--- NOTE | 2018-04-20 13:09 | Internal Med Progress Note ---
Date of Encounter: 04/20/18 Time of Encounter: 12:00 - Assessment and plan (1) Severe persistent asthma with exacerbation Current Visit: Yes Status: Acute Assessment and plan: Persuaded by rhinovirus infection. CT chest shows evidence of linear atelectasis. Compounded by underlying obesity and hypoventilation. - Patient received 5 days of antibiotics including ceftriaxone and 3 days of azithromycin. She also received intravenous steroids which have been transitioned to oral steroids. She will continue her ICS/laba/lama/ singulair with when necessary albuterol after discharge. - Outpatient follow-up with pulmonary medicine recommended with pulmonary function testing when medically optimized - ABPA to be ruled out in clinic. Abs sent. (2) Steroid-induced hyperglycemia Current Visit: Yes Status: Acute Assessment and plan: Should improve with oral steroids. (3) CAP (community acquired pneumonia) Current Visit: Yes Status: Acute Assessment and plan: Finish 5 days of antibiotics. Questionable pneumonia in evidence of CT chest findings. Qualifiers: Laterality: right Lung location: middle lobe of lung Qualified Code(s): J18.1 - Lobar pneumonia, unspecified organism (4) Acute and chronic respiratory failure Current Visit: Yes Status: Acute Assessment and plan: Still requiring supplemental oxygen at rest. Dropped to 87% on standing off oxygen. Qualifiers: Respiratory failure complication: hypoxia Qualified Code(s): J96.21 - Acute and chronic respiratory failure with hypoxia (5) Acute exacerbation of CHF (congestive heart failure) Current Visit: Yes Status: Ruled-out Qualifiers: Heart failure type: combined systolic and diastolic Qualified Code(s): I50.43 - Acute on chronic combined systolic (congestive) and diastolic ( congestive) heart failure (6) Mitral regurgitation Current Visit: Yes Status: Acute Assessment and plan: MALLORY 12/2017: Myxomatous appearing mitral valve leaflet. Fixed and restricted P2 leaflet tip of the posterior mitral valve. Mean gradient 6 mmHg by CWD at 92 bpm. Mild to moderate eccentric mitral regurgitation. TTE :LVEF 55-60%. Mitral valve not well visualized. Moderate mitral stenosis by mean gradient 7mmHg but mitral valve poorly visualized secondary to poor windows from body habitus. If clinically indicated, consider elective outpatient MALLORY to further evaluate mitral valve. No evidence of pulmonary HTN or other significant valve disease. She was seen in cardiology clinic in January 2018. A repeat echo in 6 months was recommended. No further recommendations were made by cardiology and patient. She should maintain her follow-up. Qualifiers: Cardiac valve disease etiology: etiology unspecified Qualified Code(s): I34.0 - Nonrheumatic mitral (valve) insufficiency (7) Obstructive sleep apnea Current Visit: No Status: Chronic Assessment and plan: She will need outpatient sleep study with pseudo-monitoring to rule out obesity hypoventilation. (8) Morbid obesity with BMI of 50.0-59.9, adult Current Visit: No Status: Chronic - Time Spent With Patient Total time spent is greater than 50% in coordination of care (as documented) at patient's floor/unit and/or counseling patient: 25 - 35 minutes - Subjective Interval history: Still reports dyspnea. No events overnight. No new complaints. - Constitutional Vitals: Temp Pulse Resp BP Pulse Ox 97.5 F L 87 18 149/86 98 04/20/18 11:15 04/20/18 11:15 04/20/18 11:35 04/20/18 11:15 04/20/18 13:01 General appearance: Present: A&O X 3, morbidly obese, no acute distress Exam: Physical exam Gen: Comfortable, laying in bed, in no visible distress, morbidly obese HEENT: Normocephalic, atraumatic. No conjunctival icterus. Moist oral mucosa. Neck: Supple Lungs: Wheezing bilaterally Heart: Normal S1-S2, no murmurs rubs or gallops Abdomen: Normoactive bowel sounds, no guarding rigidity or tenderness Extremities: No edema clubbing or cyanosis Neuro: Alert oriented 3, no focal deficits Skin: No skin lesions Internal Medicine: Result - Labs CBC & Chem 7: 04/19/18 04:33 04/19/18 04:33 - ABG Interpretation ABG results: ABG ABG pH 7.31 pH Units (7.32-7.45) L 04/16/18 23:21 ABG pCO2 39 mmHg (35-45) 04/16/18 23:21 ABG pO2 121 mmHg (85-104) H 04/16/18 23:21 ABG O2 Saturation 98 % (95-98) 04/16/18 23:21 Consult Discharge Plan - Plan Additional Instructions: Follow-up with pulmonary medicine in 4 weeks Referrals: Jac Kilgore MD [Partnered Physician] - Michael Salazar MD [Primary Care Provider] - 04/27/18 10:15 am Prescriptions: PredniSONE [Deltasone] 60 mg PO DAILY #15 tablet
[2018-04-20 17:10] LABS: A.galactomannan Ag Index 0.05
[2018-04-20] MEDS: Insulin DETEMIR 100 UNIT/ML X5UNITS SQ SCH (21:20)
[2018-04-21] MEDS: Ipratropium/Albuterol Neb 3 ML IH SCH ×3 (03:39→11:00)
[2018-04-21] MEDS: *HR* Heparin 5,000 UNIT/ML VIAL SQ SCH (05:40)
[2018-04-21 07:40] LABS: Aspergillus fumigatus IgE <0.10 kU/L (<=0.34)
[2018-04-21] MEDS: IRON PS CMPLX PO SCH (08:47)
[2018-04-21] MEDS: VIT B12 PO SCH (08:47)
[2018-04-21] MEDS: [UNRECOGNIZED DRUG - OTHER] PO SCH (08:47)
[2018-04-21] MEDS: Furosemide 40 MG/4 ML VIAL IVP SCH (08:55)
[2018-04-21] MEDS: Loratadine 10 MG TABLET PO SCH (08:57)
[2018-04-21] MEDS: clonazePAM 0.5 MG TABLET PO SCH (08:57)
[2018-04-21] MEDS: Diltiazem CD (24hr) 120 MG CAPSULE PO SCH (08:57)
[2018-04-21] MEDS: Insulin LISPRO 300 UNITS/3 ML VIAL SQ SCH ×4 (08:58→12:11)
[2018-04-21] MEDS ORDERED: predniSONE 20 MG TABLET PO ONE (09:00)
[2018-04-21] MEDS: Budesonide/Formoterol 160/4.5 MDI IH SCH (10:57)
[2018-04-21 11:49] VITALS: BP 149/85
== END 2018-04-21 13:35 | disposition home or self-care (01) | DRG 141 ==
LOC: EMEROO 18:14 → 3BNU 18:14
PROVIDERS: ADMIT Internal Medicine; ATTEND Internal Medicine

== ENCOUNTER 2018-08-01 12:41 | Inpatient (IN) ==
--- NOTE | 2018-08-01 13:37 | Emergency Department Note ---
Disposition Clinical Impression: Asthma exacerbation Qualifiers: Asthma severity: moderate Asthma persistence: persistent Qualified Code(s): J45.41 - Moderate persistent asthma with (acute) exacerbation Disposition: Admitted As Inpatient Condition: Fair General Adult HPI - General Chief complaint: ED Shortness of Breath/Dyspnea Stated complaint: TOREY Time Seen by Provider: 08/01/18 13:30 Source: patient Mode of arrival: ambulatory Limitations: no limitations Nursing Notes Reviewed: Yes Vital Signs Reviewed: Yes - History of Present Illness HPI Narrative: Patient ambulatory to the emergency department with a past mental history of asthma but has required multiple admissions in the past as well as the use of BiPAP. The patient also has CHF and mitral stenosis. Patient states that her symptoms started approximately a week ago. Patient was seen by provider and placed on breathing treatments and steroids. She has been taking 60 mg of steroids since Friday. She has been using her at-home nebulizer every 4 hours as well as her rescue inhaler. Patient states she continues to be short of breath. She presents to the emergency department with increased tachypnea. Diffuse moderate to severe wheezing. Patient has required BiPAP in the past and in discussing this with her she would like BiPAP at this time. Patient denies chest pain. Patient has not had fevers. She has had cough but no positive sputum production. Pain Scale: 0 - Related Data Home Medications Medication Instructions Recorded Confirmed Sertraline [Zoloft] 50 mg PO HS 01/28/16 08/01/18 Albuterol Sulfate [Proair Hfa] 2 puff IH Q6H PRN 05/23/16 08/01/18 clonazePAM [Klonopin] 0.5 mg PO BID 08/08/16 08/01/18 Furosemide [Lasix] 40 mg PO DAILY 08/14/17 08/01/18 Ipratropium Neb [Atrovent Neb] 0.5 mg IH QID PRN 08/14/17 08/01/18 Mometasone/Formoterol [Dulera 200 2 puff IH BID 08/14/17 08/01/18 Mcg/5 Mcg Inhaler] Montelukast [Singulair] 10 mg PO QPM 08/14/17 08/01/18 Iron Ps Complex/B12/Folic Acid 1 each PO DAILY 12/23/17 08/01/18 [Poly-Iron 150 Forte Capsule] Tiotropium [place] [Spiriva 2 puff IH DAILY 12/23/17 08/01/18 Respimat] Insulin LISPRO [HumaLOG] 0 units SQ TIDWM PRN 04/17/18 08/01/18 Umeclidinium [place] [Incruse 62.5 mcg IH DAILY 04/17/18 08/01/18 Ellipta] dilTIAZem HCl [Diltiazem HCl] 120 mg PO DAILY 04/17/18 08/01/18 Previous Rx's Medication Instructions Recorded Albuterol Neb [Proventil Neb] 2.5 mg IH TID #30 inhsol 12/25/17 Ipratropium/Albuterol Neb [Duoneb] 3 ml IH [id number] PRN #30 inhsol 12/25/17 Loratadine [Claritin] 10 mg PO DAILY #30 tablet 12/25/17 Allergies Allergy/AdvReac Type Severity Reaction Status Date / Time levofloxacin [From Levaquin] Allergy Anaphylaxis Verified 09/03/17 12:21 Penicillins [PCN] Allergy Anaphylaxis Verified 09/03/17 12:21 Review of Systems: CONSTITUTIONAL: No weight loss, fever, chills, weakness or fatigue. HEENT: Eyes: No visual changes. Ears, Nose, Throat: No hearing loss, difficulty talking or unable to swallow. SKIN: No rash or itching. CARDIOVASCULAR: No chest pain, chest pressure or chest discomfort. No palpitations or edema. RESPIRATORY: Shortness of breath with wheezing and cough but no sputum production GASTROINTESTINAL: No anorexia, nausea, vomiting or diarrhea. No abdominal pain or blood. GENITOURINARY: No burning on urination or hematuria. NEUROLOGICAL: No headache, dizziness, syncope, paralysis, ataxia, numbness or tingling in the extremities. No change in bowel or bladder control. MUSCULOSKELETAL: No muscle pain, back pain, joint pain or stiffness. Past Medical History - Past Medical History Medical history: Reports: asthma, CHF, COPD, diabetes, GERD Surgical history: Reports: , cholecystectomy Psychiatric history: Reports: anxiety, depression RADIOLOGIC TECHNICIAN history: Reports: no RADIOLOGIC TECHNICIAN history, bilateral tubal ligation - Social History Smoking Status: Current every day smoker Smokeless Tobacco Status: No Alcohol use: Reports: none Drug use: Reports: none Physical Exam General: Moderate respiratory distress Head: Normocephalic Atraumatic Eyes: PERRL, EOMI ENT: Airway patent, no stridor Neck: supple, no meningismus Chest: Moderate severe diffuse wheezing Cardiac: Regular rate and rhythm, no murmurs, rubs or gallops Abdomen: soft, nontender, nondistended; no guarding, rebound, or tenderness to percussion Musculoskeletal: Calves symmetric, nontender, no palpable cord Skin: No rash, normal skin tone Neuro: Alert and Oriented to person, place, and time; No focal deficit, Course Course Narrative: BiPAP, steroids, do nebs ordered. - Reevaluation(s) Reevaluation #1: Blood work including d-dimer is negative. Patient was on BiPAP and tolerated well. Patient states that her symptoms have improved somewhat but she does not feel like she has turned the corner. Patient will be admitted for further management of asthma exacerbation. Chest x-ray negative. Reevaluation #2: Patient will be placed on magnesium secondary to her being admitted for asthma exacerbation continuing to have moderate amount of wheezing. - Consultations Consultation #1: Discussed with hospitalist. Patient accepted for admission. Vital Signs Temperature 97.9 F 08/01/18 12:43 Pulse Rate 104 08/01/18 12:43 Respiratory Rate 22 08/01/18 12:43 Blood Pressure 156/77 08/01/18 12:43 O2 Sat by Pulse Oximetry 94 08/01/18 12:43 Temperature 98.2 F 08/01/18 20:06 Pulse Rate 95 08/01/18 20:06 Respiratory Rate 20 08/01/18 20:06 Blood Pressure 149/90 08/01/18 20:06 O2 Sat by Pulse Oximetry 92 08/01/18 20:06 Oxygen Delivery Oxygen Delivery CPAP Mask O2 Medical Decision Making - Medical Records Medical records reviewed: Yes I reviewed the patient's medical records. - Lab Data Lab results reviewed: Yes I reviewed the patient's lab results. Result diagrams: 08/01/18 13:40 08/01/18 13:40 Lab Results 08/01/18 08/01/18 08/01/18 Range/Units 13:40 13:40 13:40 WBC 9.0 (4.3-11.1) K/mcL RBC 5.46 H (3.82-4.97) M/mcL Hgb 16.3 H (11.5-15.4) g/dL Hct 45.4 H (35.3-44.9) % MCV 83.2 (83.0-100.0) fL MCH 29.9 (28.0-33.3) pg MCHC 35.9 H (31.6-35.5) g/dL RDW 12.0 (11.5-14.5) % Plt Count 251 (140-400) K/mcL MPV 9.1 L (9.4-12.4) fL Immature Gran % 0.4 (0-4) % Seg Neutrophils % 55.9 % Lymphocytes % 36.4 % Monocytes % 4.9 % Eosinophils % 2.0 % Basophils % 0.4 % Neutrophils # 5.0 (1.6-8.9) K/mcL Lymphocytes # 3.3 (0.6-4.6) K/mcL Monocytes # 0.4 (0.0-1.3) K/mcL Eosinophils # 0.2 (0.0-0.6) K/mcL Basophils # 0.0 (0.0-0.2) K/mcL D-Dimer (0-500) ng/mLFEU VBG pH (7.32-7.42) pH Units VBG pCO2 (41-51) mmHg VBG pO2 (25-50) mmHg VBG HCO3 (21-27) mEq/L Sodium 138 (136-145) mEq/L Potassium 3.6 (3.5-5.1) mEq/L Chloride 109 H (98-107) mEq/L Carbon Dioxide 21 L (23-29) mEq/L BUN 13 (6-20) mg/dL Creatinine 0.81 (0.60-1.20) mg/dL Est GFR ( Amer) > 60 (> 60) Est GFR (Non-Af Amer) > 60 (> 60) BUN/Creatinine Ratio 16 (6-26) Glucose 97 (70-105) mg/dL Calculated Osmolality 286 (280-300) Calcium 9.3 (8.6-10.3) mg/dL Troponin I < 0.03 (< 0.04) ng/mL B-Natriuretic Peptide 11 (Less than 100) pg/mL 08/01/18 08/01/18 Range/Units 13:41 15:01 WBC (4.3-11.1) K/mcL RBC (3.82-4.97) M/mcL Hgb (11.5-15.4) g/dL Hct (35.3-44.9) % MCV (83.0-100.0) fL MCH (28.0-33.3) pg MCHC (31.6-35.5) g/dL RDW (11.5-14.5) % Plt Count (140-400) K/mcL MPV (9.4-12.4) fL Immature Gran % (0-4) % Seg Neutrophils % % Lymphocytes % % Monocytes % % Eosinophils % % Basophils % % Neutrophils # (1.6-8.9) K/mcL Lymphocytes # (0.6-4.6) K/mcL Monocytes # (0.0-1.3) K/mcL Eosinophils # (0.0-0.6) K/mcL Basophils # (0.0-0.2) K/mcL D-Dimer 372 (0-500) ng/mLFEU VBG pH 7.29 L (7.32-7.42) pH Units VBG pCO2 51 (41-51) mmHg VBG pO2 47 (25-50) mmHg VBG HCO3 25 (21-27) mEq/L Sodium (136-145) mEq/L Potassium (3.5-5.1) mEq/L Chloride (98-107) mEq/L Carbon Dioxide (23-29) mEq/L BUN (6-20) mg/dL Creatinine (0.60-1.20) mg/dL Est GFR ( Amer) (> 60) Est GFR (Non-Af Amer) (> 60) BUN/Creatinine Ratio (6-26) Glucose (70-105) mg/dL Calculated Osmolality (280-300) Calcium (8.6-10.3) mg/dL Troponin I (< 0.04) ng/mL B-Natriuretic Peptide (Less than 100) pg/mL - Radiology Data Radiology results reviewed: Yes I reviewed the patient's radiology results. - EKG Data EKG #1 EKG attestation: Yes I reviewed and interpreted this EKG. EKG results narrative: EKG shows sinus rhythm with heart of 70. AR 199. QRS 123. QTC 445. Patient has no significant ST elevations or depressions. No significant changes from previous of 08/27/17.
[2018-08-01] MEDS ORDERED: methylPREDNISolone 125 MG/2 ML VIAL IVP ONE (13:43)
[2018-08-01] MEDS ORDERED: Ipratropium/Albuterol Neb 3 ML IH ONE (13:43)
[2018-08-01] MEDS ORDERED: 0.9 % Sodium Chloride 500 ML IVC ONE (13:47)
[2018-08-01 13:55] LABS: Basophils % 0.4 %; Eosinophils # 0.2 K/mcL (0.0-0.6); Hematocrit 45.4 % (35.3-44.9); Hemoglobin 16.3 g/dL (11.5-15.4); Immature Granulocytes % 0.4 % (0-4); Lymphocytes # 3.3 K/mcL (0.6-4.6); Lymphocytes % 36.4 %; Mean Corpuscular HGB Conc 35.9 g/dL (31.6-35.5); Mean Corpuscular Hemoglobin 29.9 pg (28.0-33.3); Mean Corpuscular Volume 83.2 fL (83.0-100.0); Mean Platelet Volume 9.1 fL (9.4-12.4); Monocytes # 0.4 K/mcL (0.0-1.3); Monocytes % 4.9 %; Platelet Count 251 K/mcL (140-400); Red Blood Count 5.46 M/mcL (3.82-4.97); Segmented Neutrophils % 55.9 %
[2018-08-01 14:15] LABS: BUN/Creatinine Ratio 16 (6-26); Blood Urea Nitrogen 13 mg/dL (6-20); Calcium 9.3 mg/dL (8.6-10.3); Carbon Dioxide 21 mEq/L (23-29); Chloride 109 mEq/L (98-107); Glucose 97 mg/dL (70-105); Osmolality,Calculated 286 (280-300); Potassium 3.6 mEq/L (3.5-5.1); Sodium 138 mEq/L (136-145); eGFR For Non-African Americans > 60 (> 60)
[2018-08-01 14:16] LABS: Troponin I < 0.03 ng/mL (< 0.04)
[2018-08-01 15:05] LABS: VBG HCO3 25 mEq/L (21-27); VBG PCO2 51 mmHg (41-51); VBG PH 7.29 pH Units (7.32-7.42); VBG PO2 47 mmHg (25-50)
[2018-08-01] MEDS ORDERED: Naloxone 0.4 MG/ML INJ IVP PRN (15:47)
--- NOTE | 2018-08-01 17:52 | Internal Med History&Physical ---
Date of Encounter: 08/01/18 Time of Encounter: 17:15 Internal Medicine - H&P: HPI Chief complaint: Difficulty breathing Admitted From: Emergency Dept Plans for Post Hospital Care: Home History of present illness: Ms. Sweet is a 38 year old female with hx of asthma presented to ED with complaints of worsening dyspnea. She was evaluated and subsequently admitted Ms Sweet has hx of asthma and has had multiple admissions in the past. She started having symptoms about a week ago and she saw her PCP and was placed on aerosols in addition to MDI and steroids. She has been on PO Prednisone 60mg daily since Friday of this week. Despite this treatment she has continued to be very dyspneic. Today when she arrived in ED she was having a lot of difficulty breathing requiring CPAP. At this time she is still dsypneic at rest and continues to wheeze. Past Med Surg Social Fam HX - Past Medical History Source: patient Medical history: asthma, CHF, COPD, diabetes, GERD Additional medical history: "heart problems" Psychiatric history: anxiety, depression - Past Surgical History Surgical History: , cholecystectomy Additional surgical history: Tubal Ligation - Social History Smoking Status: Current every day smoker Smokeless Tobacco Status: No Alcohol use: none Drug use: none - Family History Mother Living Status: Still Living Hx Family Cardiac Disorders: Yes (pvd) Hx Family Respiratory Disorders: Yes (copd) Father Living Status: Hx Family Cardiac Disorders: Yes (htn) Hx Family Respiratory Disorders: Yes Hx Family Cancer: Yes (bone and breast) Hx Family GI Disorders: Yes Hx Family Endocrine Disorder: No Hx Family Neuromuscular Disorders: No Hx Family Neurologic Disorders: No Hx Family HEENT Disorders: No Hx Family Autoimmune Disorders: No Internal Medicine - H&P: Meds Sertraline [Zoloft] 50 mg PO HS 01/28/16 [History] Albuterol Sulfate [Proair Hfa] 2 puff IH Q6H PRN 05/23/16 [History] clonazePAM [Klonopin] 0.5 mg PO BID 08/08/16 [History] Furosemide [Lasix] 40 mg PO DAILY 08/14/17 [History] Ipratropium Neb [Atrovent Neb] 0.5 mg IH QID PRN 08/14/17 [History] Mometasone/Formoterol [Dulera 200 Mcg/5 Mcg Inhaler] 2 puff IH BID 08/14/17 [ History] Montelukast [Singulair] 10 mg PO QPM 08/14/17 [History] Iron Ps Complex/B12/Folic Acid [Poly-Iron 150 Forte Capsule] 1 each PO DAILY [History] Tiotropium [place] [Spiriva Respimat] 2 puff IH DAILY 12/23/17 [History] Albuterol Neb [Proventil Neb] 2.5 mg IH TID #30 inhsol 12/25/17 [Rx] Ipratropium/Albuterol Neb [Duoneb] 3 ml IH [id number] PRN #30 inhsol 12/25/17 [Rx] Loratadine [Claritin] 10 mg PO DAILY #30 tablet 12/25/17 [Rx] Insulin LISPRO [HumaLOG] 0 units SQ TIDWM PRN 04/17/18 [History] Umeclidinium [place] [Incruse Ellipta] 62.5 mcg IH DAILY 04/17/18 [History] dilTIAZem HCl [Diltiazem HCl] 120 mg PO DAILY 04/17/18 [History] 3 Allergy/AdvReac Type Severity Reaction Status Date / Time levofloxacin [From Levaquin] Allergy Anaphylaxis Verified 09/03/17 12:21 Penicillins [PCN] Allergy Anaphylaxis Verified 09/03/17 12:21 All Systems PM: A 10-system review of systems was performed and is negative for pertinent findings except as documented above in the HPI. - Constitutional Constitutional: fatigue, malaise - EENT Eyes: no discharge, no loss of vision Ears: no decreased hearing Nose, mouth and throat: no nasal congestion, no sinus pain, no sinus pressure - Cardiovascular Cardiovascular ROS IM: dyspnea, no edema, no orthopnea, no palpitations, no paroxysmal nocturnal dyspnea - Respiratory Respiratory: dyspnea, dyspnea on exertion, wheezing, chest congestion - Gastrointestinal Gastrointestinal: no abdominal pain, no diarrhea, no melena - Musculoskeletal Musculoskeletal ROS IM: no myalgias, no numbness - Integumentary Integumentary IM: no new lesions, no rash - Neurological Neurological ROS: no abnormal gait, no numbness, no vertigo - Endocrine Endocrine IM: no cold intolerance, no heat intolerance - Allergic/Immunologic Allergic/Immunologic: no throat swelling - Constitutional Vitals: Temp Pulse Resp BP Pulse Ox 97.9 F 87 16 130/79 91 08/01/18 15:47 08/01/18 15:47 08/01/18 16:31 08/01/18 16:31 08/01/18 15:47 General appearance: Present: A&O X 3, pleasant, answers questions appropriately Exam: See below - Head Head exam: Present: atraumatic, normocephalic - Eye Eye exam: Present: EOMI, conjuntiva pink - ENT ENT exam: Present: mucous membranes moist - Respiratory Respiratory exam: Present: wheezes Additional comments: Diffuse wheezing throughout. - Cardiovascular Cardiovascular exam: Present: RRR. Absent: tachycardia Additional comments: Difficult to hear over wheeze - GI/Abdominal GI/Abdominal exam: Present: normal bowel sounds, soft. Absent: tenderness - Extremities Exam Extremities exam: Present: warm. Absent: pedal edema, tenderness - Neurological Exam Neurological exam: Present: alert, oriented X3, no focal deficits - Skin Skin exam: Present: dry, warm. Absent: rash Internal Med - H&P Results - Labs CBC & Chem 7: 08/01/18 13:40 08/01/18 13:40 - Assessment and plan (1) Asthma exacerbation Current Visit: Yes Status: Acute Assessment and plan: Pt has hx of asthma. She has had symptoms for over a week. She has been on high dose Prednisone, aerosols and MDI at home and is still very symptomatic. Admit to med tele. IV steroids, aerosols, abx (has hx COPD as well), oxygen and CPAP/BIPAP as needed. At this point I feel she is high risk due to potential for worsening respiratory status despite outpatient treatment. Check respiratory infection panel. Qualifiers: Asthma severity: moderate Asthma persistence: persistent Qualified Code(s ): J45.41 - Moderate persistent asthma with (acute) exacerbation (2) CHF (congestive heart failure) Current Visit: Yes Status: Chronic Assessment and plan: Pt reports hx of CHF though there is no echo in our system. Will check echo. Qualifiers: Heart failure type: unspecified Heart failure chronicity: unspecified Qualified Code(s): I50.9 - Heart failure, unspecified (3) Obstructive sleep apnea Current Visit: No Status: Chronic Assessment and plan: Chronic issue. (4) Morbid obesity with BMI of 60.0-69.9, adult Current Visit: Yes Status: Chronic Assessment and plan: Chronic issue (5) Tobacco abuse Current Visit: No Status: Chronic Assessment and plan: Cessation counselling - Time Spent With Patient Total time spent is greater than 50% in coordination of care (as documented) at patient's floor/unit and/or counseling patient:
[2018-08-01] MEDS: *HR* Heparin 5,000 UNIT/ML VIAL SQ SCH (18:34)
[2018-08-01] MEDS: MethylPREDNISolone 40 MG/ML VIAL IVP SCH (18:35)
[2018-08-01] MEDS: Budesonide/Formoterol 160/4.5 1 PUFF INH IH SCH (20:32)
[2018-08-01] MEDS: Ipratropium/Albuterol Neb 3 ML IH PRN (20:38)
[2018-08-01] MEDS: clonazePAM 0.5 MG TABLET PO SCH (20:38)
[2018-08-01] MEDS: Azithromycin 500 MG in D5% in Water 250 ML IVPB SCH (20:38)
[2018-08-01] MEDS: Albuterol 2.5 MG/3 ML NEBULIZER IH PRN (23:50)
[2018-08-02] MEDS: MethylPREDNISolone 40 MG/ML VIAL IVP SCH ×4 (01:17→16:36)
[2018-08-02] MEDS: *HR* Heparin 5,000 UNIT/ML VIAL SQ SCH ×3 (01:17→16:36)
[2018-08-02] MEDS: Albuterol 2.5 MG/3 ML NEBULIZER IH PRN (04:11)
[2018-08-02 05:19] LABS: Hematocrit 43.3 % (35.3-44.9); Hemoglobin 15.3 g/dL (11.5-15.4); Mean Corpuscular HGB Conc 35.3 g/dL (31.6-35.5); Mean Corpuscular Hemoglobin 29.6 pg (28.0-33.3); Mean Corpuscular Volume 83.8 fL (83.0-100.0); Mean Platelet Volume 9.3 fL (9.4-12.4); Platelet Count 231 K/mcL (140-400); Red Blood Count 5.17 M/mcL (3.82-4.97); Red Cell Distribution Width 11.9 % (11.5-14.5)
[2018-08-02 05:40] LABS: BUN/Creatinine Ratio 18 (6-26); Blood Urea Nitrogen 17 mg/dL (6-20); Calcium 9.1 mg/dL (8.6-10.3); Carbon Dioxide 20 mEq/L (23-29); Chloride 108 mEq/L (98-107); Glucose 316 mg/dL (70-105); Magnesium 2.3 mg/dL (1.6-2.6); Osmolality,Calculated 294 (280-300); Potassium 3.3 mEq/L (3.5-5.1); Sodium 135 mEq/L (136-145); eGFR For Non-African Americans > 60 (> 60)
[2018-08-02] MEDS: Ipratropium/Albuterol Neb 3 ML IH PRN ×3 (07:29→20:05)
[2018-08-02] MEDS ORDERED: Furosemide 40 MG TABLET PO SCH (09:00)
[2018-08-02] MEDS ORDERED: Dextrose Gel 15 GM/37.5 ML TUBE PO PRN ×2 (10:41)
[2018-08-02] MEDS ORDERED: D5% in Water 1,000 ML IVC PRN (10:41)
[2018-08-02] MEDS ORDERED: *HR* Dextrose 50 % in Water (Syg) 50 ML SYRINGE IVP PRN (10:41)
[2018-08-02] MEDS: Diltiazem CD (24hr) 120 MG CAPSULE PO SCH (10:50)
[2018-08-02] MEDS: Loratadine 10 MG TABLET PO SCH (10:50)
[2018-08-02] MEDS: (Umeclidinium Bromide [Incruse Ellipta] 62.5 MCG) IH SCH (10:51)
[2018-08-02] MEDS: clonazePAM 0.5 MG TABLET PO SCH ×2 (10:51→21:26)
[2018-08-02] MEDS: Budesonide/Formoterol 160/4.5 1 PUFF INH IH SCH ×2 (11:11→20:05)
[2018-08-02] MEDS: Insulin LISPRO 300 UNITS/3 ML VIAL SQ SCH ×2 (11:57→16:36)
[2018-08-02 13:12] LABS: Adenovirus Not Detected (Not Detect); Bordetella Pertussis Not Detected (Not Detect); Chlamydophila pneumoniae Not Detected (Not Detect); Coronavirus 229E Not Detected (Not Detect); Coronavirus HKU1 Not Detected (Not Detect); Coronavirus NL63 Not Detected (Not Detect); Coronavirus OC43 Not Detected (Not Detect); Human Metapneumovirus Not Detected (Not Detect); Human Rhinovirus/Enterovirus DETECTED (Not Detect); Influenza A Subtype 2009 H1 Not Detected (Not Detect); Influenza A Untypeable Not Detected (Not Detect); Influenza B Not Detected (Not Detect); Mycoplasma pneumoniae Not Detected (Not Detect); Parainfluenza Virus 1 Not Detected (Not Detect); Parainfluenza Virus 2 Not Detected (Not Detect); Parainfluenza Virus 3 Not Detected (Not Detect); Parainfluenza Virus 4 Not Detected (Not Detect); Respiratory Syncytial Virus Not Detected (Not Detect)
--- NOTE | 2018-08-02 16:00 | Internal Med Progress Note ---
Hospitalist Progress Note - Encounter Date of Encounter: 08/02/18 Time of Encounter: 10:20 - Subjective Interval History: Ms Sweet is currently admitted for acute exac asthma due to infection with rhinovirus. She remains moderate to high risk due to potential for worsening clinical status. Ms Sweet feels about the same. She is very congested. She can't mobilize sputum. On IV steroids, abx, aerosols. No GI issues. Tolerating diet. - Exam Vitals: Temp Pulse Resp BP Pulse Ox 97.5 F L 68 12 115/73 96 08/02/18 11:36 08/02/18 11:36 08/02/18 11:36 08/02/18 11:36 08/02/18 11:36 Exam: General: Alert and oriented. Comfortable at this time on side of bed. Still dyspneic with movement. Skin: Normal color, no rash, no lesions. H: Normocephalic. EENT: EOMI, pupils equal, round and reactive. Mucus membranes moist. No lesion. Cardiovascular: Normal S1 & S2, no rubs, murmurs or gallops. No JVD. Pulse regular. Distant heart sounds. Lungs: Diffuse end exp wheezing throughout. No rales or rhonchi. Abdomen: Soft, non-tender, no rigidity. Normal bowel sounds. Extremities: No deformity, tenderness, no joint swelling or clubbing. Some increased edema noted. Neurological: Normal cognition and motor skills. Pulses: Carotid and radial pulses normal +2. Rest of the physical exam is non contributory - Assessment and Plan (1) Asthma exacerbation Current Visit: Yes Status: Acute Assessment and Plan: Pt has hx of asthma. She has had symptoms for over a week. She has been on high dose Prednisone, aerosols and MDI at home and is still very symptomatic. Clinically not much better. Add mucinex. Diuresis. Continue aerosols, steroids, abx. (2) CHF (congestive heart failure) Current Visit: Yes Status: Chronic Assessment and Plan: Pt reports hx of CHF though there is no echo in our system. Echo here is pending. Diurese today. (3) Obstructive sleep apnea Current Visit: No Status: Chronic Assessment and Plan: Chronic issue. (4) Morbid obesity with BMI of 60.0-69.9, adult Current Visit: Yes Status: Chronic Assessment and Plan: Chronic issue (5) Tobacco abuse Current Visit: No Status: Resolved Assessment and Plan: No longer smoking. - Time Spent with Patient Total time spent is greater than 50% in coordination of care (as documented) at patient's floor/unit and/or counseling patient: Internal Medicine: Result - Labs CBC & Chem 7: 08/02/18 05:07 08/02/18 05:07 Labs: Short CBC 08/02/18 Range/Units 05:07 WBC 9.4 (4.3-11.1) K/mcL Hgb 15.3 (11.5-15.4) g/dL Hct 43.3 (35.3-44.9) % Plt Count 231 (140-400) K/mcL BMP 08/02/18 05:07 Sodium 135 L Potassium 3.3 L Chloride 108 H Carbon Dioxide 20 L BUN 17 Creatinine 0.93 Glucose 316 H Calcium 9.1 - ABG Interpretation ABG results: PT/INR, D-dimer D-Dimer 372 ng/mLFEU (0-500) 08/01/18 13:41 Consult Discharge Plan - Plan (1) Asthma exacerbation Qualifiers: Asthma severity: moderate Asthma persistence: persistent Qualified Code(s): J45.41 - Moderate persistent asthma with (acute) exacerbation (2) CHF (congestive heart failure) Qualifiers: Heart failure type: unspecified Heart failure chronicity: unspecified Qualified Code(s): I50.9 - Heart failure, unspecified
[2018-08-02] MEDS: Furosemide 20 MG/2 ML VIAL IVP SCH (17:14)
[2018-08-02] MEDS: Ondansetron 4 MG/2 ML VIAL IVP PRN (18:36)
[2018-08-02] MEDS: Azithromycin 500 MG in D5% in Water 250 ML IVPB SCH (19:43)
[2018-08-02] MEDS ORDERED: Insulin LISPRO 300 UNITS/3 ML VIAL SQ SCH (21:00)
[2018-08-03] MEDS: *HR* Heparin 5,000 UNIT/ML VIAL SQ SCH ×3 (00:45→16:48)
[2018-08-03] MEDS: MethylPREDNISolone 40 MG/ML VIAL IVP SCH ×4 (00:45→16:48)
[2018-08-03 05:18] LABS: Hematocrit 42.1 % (35.3-44.9); Hemoglobin 14.4 g/dL (11.5-15.4); Mean Corpuscular HGB Conc 34.2 g/dL (31.6-35.5); Mean Corpuscular Hemoglobin 28.9 pg (28.0-33.3); Mean Corpuscular Volume 84.5 fL (83.0-100.0); Mean Platelet Volume 9.7 fL (9.4-12.4); Platelet Count 218 K/mcL (140-400); Red Blood Count 4.98 M/mcL (3.82-4.97); Red Cell Distribution Width 12.1 % (11.5-14.5)
[2018-08-03 05:44] LABS: BUN/Creatinine Ratio 23 (6-26); Blood Urea Nitrogen 22 mg/dL (6-20); Calcium 9.2 mg/dL (8.6-10.3); Carbon Dioxide 23 mEq/L (23-29); Chloride 105 mEq/L (98-107); Glucose 327 mg/dL (70-105); Osmolality,Calculated 292 (280-300); Potassium 4.2 mEq/L (3.5-5.1); Sodium 133 mEq/L (136-145); eGFR For Non-African Americans > 60 (> 60)
[2018-08-03] MEDS: clonazePAM 0.5 MG TABLET PO SCH (09:19)
[2018-08-03] MEDS: Loratadine 10 MG TABLET PO SCH (09:19)
[2018-08-03] MEDS: (Umeclidinium Bromide [Incruse Ellipta] 62.5 MCG) IH SCH (09:20)
[2018-08-03] MEDS: Diltiazem CD (24hr) 120 MG CAPSULE PO SCH (09:20)
[2018-08-03] MEDS: Furosemide 20 MG/2 ML VIAL IVP SCH ×2 (09:20→16:48)
[2018-08-03] MEDS: Insulin LISPRO 300 UNITS/3 ML VIAL SQ SCH ×2 (09:22→11:58)
--- NOTE | 2018-08-03 10:27 | Internal Med Progress Note ---
<Josh Tilley - Last Filed: 08/03/18 16:14> Hospitalist Progress Note - Encounter Date of Encounter: 08/03/18 Time of Encounter: 09:00 - Subjective Interval History: Pt is a pleasant 38 y/o F and was seen and evaluated at bedside. Pt reports better sleep after starting bipap. Pt was given mucolytics to aid chest congestion however she does not report any improvement today. Plan to add N- acetylcysteine to treatment regimen. Methylprednisolone will be tapered down and glucose levels will be monitored. Pt is on bipap with an O2 sat of 98. - Exam Vitals: Temp Pulse Resp BP Pulse Ox 97.1 F L 66 18 132/69 98 08/03/18 06:48 08/03/18 06:48 08/03/18 06:48 08/03/18 06:48 08/03/18 06:48 Exam: Head: Normocephalic Lungs: Wheezes heard B/L Heart: No rubs or gallops RRR. No edema of extremities. Pulses 2/4. Abdomen: No tenderness to palpation. Bowel sounds heard. - Assessment and Plan (1) Asthma exacerbation Current Visit: Yes Status: Acute Assessment and Plan: Pt has hx of asthma. She has had symptoms for over a week. She has been on high dose Prednisone, aerosols and MDI at home and is still very symptomatic. CXR: No focal consolidation. No evidence of pleural effusion or pneumothorax. Multilevel degenerative changes of the thoracic spine. Pulmonary interstitial edema present. Mucinex added to aid chest congestion resulting in minimal improvement. Continue aerosols, steroids, abx. Diurese pt with Lasix 40mg Plan to add N-acetylcysteine to aid in chest decongestion Taper steroid levels and watch glucose. Pt still reports congestion in her chest, but has reported improvement in respiration with bipap. (2) CHF (congestive heart failure) Current Visit: Yes Status: Chronic Assessment and Plan: Pt reports hx of CHF Last echocardiogram (04/17/18) found LVEF of 65-70% with moderate mitral stenosis Furosemide 40 mg PO Order repeat echocardiogram (3) Morbid obesity with BMI of 60.0-69.9, adult Current Visit: Yes Status: Chronic (4) Obstructive sleep apnea Current Visit: No Status: Chronic Assessment and Plan: Recommend outpatient sleep study after discharge (5) Tobacco abuse Current Visit: No Status: Chronic Assessment and Plan: Pt was a daily smoker but she is no longer smoking (6) DVT prophylaxis Current Visit: No Status: Acute Assessment and Plan: Heparin SubQ - Time Spent with Patient Total time spent is greater than 50% in coordination of care (as documented) at patient's floor/unit and/or counseling patient: Greater than 35 minutes Plan of Care Discussed with: patient Internal Medicine: Result - Labs CBC & Chem 7: 08/03/18 04:56 08/03/18 04:56 Labs: Short CBC 08/03/18 Range/Units 04:56 WBC 19.4 H D (4.3-11.1) K/mcL Hgb 14.4 (11.5-15.4) g/dL Hct 42.1 (35.3-44.9) % Plt Count 218 (140-400) K/mcL BMP 08/03/18 04:56 Sodium 133 L Potassium 4.2 D Chloride 105 Carbon Dioxide 23 BUN 22 H Creatinine 0.96 Glucose 327 H Calcium 9.2 - ABG Interpretation ABG results: PT/INR, D-dimer D-Dimer 372 ng/mLFEU (0-500) 08/01/18 13:41 Consult Discharge Plan - Plan Referrals: Michael Salazar MD [Primary Care Provider] - <Mike Santana - Last Filed: 08/03/18 19:24> Hospitalist Progress Note - Encounter Date of Encounter: 08/03/18 - Exam Vitals: Temp Pulse Resp BP Pulse Ox 98.0 F 80 18 133/90 94 08/03/18 10:29 08/03/18 14:50 08/03/18 16:29 08/03/18 14:50 08/03/18 16:29 - Assessment and Plan (1) Asthma exacerbation Current Visit: Yes Status: Acute (2) CHF (congestive heart failure) Current Visit: Yes Status: Chronic (3) Obstructive sleep apnea Current Visit: No Status: Chronic (4) Morbid obesity with BMI of 60.0-69.9, adult Current Visit: Yes Status: Chronic (5) Tobacco abuse Current Visit: No Status: Inactive - Time Spent with Patient Total time spent is greater than 50% in coordination of care (as documented) at patient's floor/unit and/or counseling patient: Internal Medicine: Result - Labs CBC & Chem 7: 08/03/18 04:56 08/03/18 04:56 Labs: Short CBC 08/03/18 Range/Units 04:56 WBC 19.4 H D (4.3-11.1) K/mcL Hgb 14.4 (11.5-15.4) g/dL Hct 42.1 (35.3-44.9) % Plt Count 218 (140-400) K/mcL BMP 08/03/18 04:56 Sodium 133 L Potassium 4.2 D Chloride 105 Carbon Dioxide 23 BUN 22 H Creatinine 0.96 Glucose 327 H Calcium 9.2 - ABG Interpretation ABG results: PT/INR, D-dimer D-Dimer 372 ng/mLFEU (0-500) 08/01/18 13:41 - Attending Attestation The history, physical exam, and medical decision making was performed by the medical student either while I was physically present and actively involved or I personally re-performed the exam and medical decision making. I have verified the accuracy of the medical student's documentation with regards to the history, physical exam findings, and medical decision making on 08/03/18. Ms Sweet is currently admitted for acute exac asthma (?COPD). She remains moderate to high risk due to potential for worsening clinical status. Ms Sweet is breathing somewhat better but still can't get up secretions. No fever or chills. No CP. No abd pain Exam alert Comfortable sitting in bed Mucus membranes dry Heart reg Lungs with better air movement. Some wheeze Abd soft I/P 1. Exac asthma - add mucomyst. Decrease steroids. PO tomorrow. 2. Former smoker Further diagnoses and plan as above. Anticipate d/c in next 1-2 days. <Josh Tilley - Last Filed: 08/03/18 16:14> (1) Asthma exacerbation Qualifiers: Asthma severity: moderate Asthma persistence: persistent Qualified Code(s): J45.41 - Moderate persistent asthma with (acute) exacerbation (2) CHF (congestive heart failure) Qualifiers: Heart failure type: unspecified Heart failure chronicity: unspecified Qualified Code(s): I50.9 - Heart failure, unspecified <Mike Santana - Last Filed: 08/03/18 19:24> (1) Asthma exacerbation Qualifiers: Asthma severity: moderate Asthma persistence: persistent Qualified Code(s): J45.41 - Moderate persistent asthma with (acute) exacerbation (2) CHF (congestive heart failure) Qualifiers: Heart failure type: diastolic Heart failure chronicity: chronic Qualified Code(s): I50.32 - Chronic diastolic (congestive) heart failure
[2018-08-03] MEDS: Budesonide/Formoterol 160/4.5 1 PUFF INH IH SCH ×2 (10:44→22:40)
[2018-08-03] MEDS: Ipratropium/Albuterol Neb 3 ML IH PRN (10:45)
[2018-08-03] MEDS: Ipratropium/Albuterol Neb 3 ML IH SCH ×2 (16:28→22:40)
[2018-08-03] MEDS: Acetylcysteine 10% 2 ML INHSOL IH SCH ×2 (16:29→22:40)
[2018-08-03] MEDS ORDERED: D5% in Water 1,000 ML IVC PRN (16:39)
[2018-08-03] MEDS ORDERED: *HR* Dextrose 50 % in Water (Syg) 50 ML SYRINGE IVP PRN (16:39)
[2018-08-03] MEDS ORDERED: Dextrose Gel 15 GM/37.5 ML TUBE PO PRN ×2 (16:39)
[2018-08-03] MEDS ORDERED: Insulin LISPRO 300 UNITS/3 ML VIAL SQ SCH ×2 (16:45→21:00)
[2018-08-03] MEDS: Acetaminophen 325 MG TABLET PO PRN (16:48)
--- NOTE | 2018-08-03 17:29 | Electrocardiograph Report ---
[place] [id number] Test Date: 2018-08-01 Pat Name: Valerie Sweet Department: 104 Room: [facility] Gender: F Box Office Clerk: : 1980 Requested By: Richar Lira Order Number: [id number] Reading MD: Ame Garcia Measurements Intervals [place] Rate: 98 P: 44 KS: 148 QRS: 64 QRSD: 86 T: 49 QT: 346 QTc: 402 Interpretive Statements SINUS RHYTHM LOW QRS VOLTAGE IN PRECORDIAL LEADS Electronically Signed On 08-03-2018 17:28:00 EDT by Ame Garcia
[2018-08-03] MEDS: Azithromycin 500 MG in D5% in Water 250 ML IVPB SCH (20:57)
[2018-08-04] MEDS: *HR* Heparin 5,000 UNIT/ML VIAL SQ SCH ×4 (00:59→23:41)
[2018-08-04] MEDS: clonazePAM 0.5 MG TABLET PO SCH ×3 (01:06→21:09)
[2018-08-04] MEDS ORDERED: Insulin LISPRO 300 UNITS/3 ML VIAL SQ ONE (04:26)
[2018-08-04] MEDS: Ipratropium/Albuterol Neb 3 ML IH SCH ×4 (04:36→22:33)
[2018-08-04] MEDS: Acetylcysteine 10% 2 ML INHSOL IH SCH ×4 (04:37→22:33)
[2018-08-04 05:55] LABS: Basophils % 0.2 %; Hematocrit 39.4 % (35.3-44.9); Hemoglobin 13.6 g/dL (11.5-15.4); Lymphocytes # 2.1 K/mcL (0.6-4.6); Lymphocytes % 11.7 %; Mean Corpuscular HGB Conc 34.5 g/dL (31.6-35.5); Mean Platelet Volume 9.7 fL (9.4-12.4); Monocytes # 0.7 K/mcL (0.0-1.3); Neutrophils # 14.6 K/mcL (1.6-8.9); Platelet Count 227 K/mcL (140-400); Red Blood Count 4.69 M/mcL (3.82-4.97); Red Cell Distribution Width 12.4 % (11.5-14.5); Segmented Neutrophils % 83.1 %
[2018-08-04] MEDS: MethylPREDNISolone 40 MG/ML VIAL IVP SCH (06:18)
[2018-08-04 06:28] LABS: BUN/Creatinine Ratio 26 (6-26); Blood Urea Nitrogen 22 mg/dL (6-20); Calcium 9.1 mg/dL (8.6-10.3); Carbon Dioxide 18 mEq/L (23-29); Chloride 106 mEq/L (98-107); Glucose 355 mg/dL (70-105); Osmolality,Calculated 294 (280-300); Potassium 4.2 mEq/L (3.5-5.1); Sodium 133 mEq/L (136-145); eGFR For Non-African Americans > 60 (> 60)
[2018-08-04] MEDS: Diltiazem CD (24hr) 120 MG CAPSULE PO SCH (08:21)
[2018-08-04] MEDS: Loratadine 10 MG TABLET PO SCH (08:21)
[2018-08-04] MEDS: (Umeclidinium Bromide [Incruse Ellipta] 62.5 MCG) IH SCH (08:22)
[2018-08-04] MEDS: Furosemide 20 MG/2 ML VIAL IVP SCH ×2 (08:22→16:42)
[2018-08-04] MEDS: Insulin LISPRO 300 UNITS/3 ML VIAL SQ SCH ×5 (08:36→21:10)
--- NOTE | 2018-08-04 08:58 | Internal Med Progress Note ---
<Josh Tilley - Last Filed: 08/04/18 13:33> Hospitalist Progress Note - Encounter Date of Encounter: 08/04/18 Time of Encounter: 07:30 - Subjective Interval History: Pt is a pleasant 38 y/o F and was seen and evaluated at bedside. Pt reports lessened chest congestion since addition of N-acetylcysteine. Pt still reports nonproductive cough and epigastric abdominal pain. Pt denies: CP, fevers, N/V. Pt still reports difficulty sleeping through the night, however the CPAP has helped her get through the night. Pt additionally reports 6/10 headache, however this has not affected her sleep. Pt labs have been improving with her latest wbc at 17.6 (from 19.4 yesterday). Currently watching glucose levels (latest measurement at 304 after 443 spike yesterday) while steroids are tapered. Pt has moved up to a high insulin sliding scale last night. Pt is under contact precaution for positive Rhinovirus. - Exam Vitals: Temp Pulse Resp BP Pulse Ox 96.7 F L 59 17 139/89 95 08/04/18 07:50 08/04/18 07:50 08/04/18 07:50 08/04/18 07:50 08/04/18 07:50 Exam: Head: Normocephalic Lungs: Wheezes heard B/L Heart: No rubs or gallops RRR Skin: dry and intact Extremities: no edema, peripheral pulses 2/4 - Assessment and Plan (1) Asthma exacerbation Current Visit: Yes Status: Acute Assessment and Plan: Pt has hx of asthma. She has had symptoms for over a week. She has been on high dose Prednisone, aerosols and MDI at home and is still very symptomatic. CXR: Pulmonary interstitial edema present. Pt still reports congestion in her chest, but has reported some improvement. Currently on mucinex and N-acetylcysteine Continue aerosols, steroids, abx. Currently tapering steroid levels and monitoring glucose (high sliding scale) Pt on bipap FiO2 40% (2) CHF (congestive heart failure) Current Visit: Yes Status: Chronic Assessment and Plan: Pt reports hx of CHF Last echocardiogram (04/17/18) found LVEF of 65-70% with moderate mitral stenosis Furosemide 20 mg IVP BID (3) Morbid obesity with BMI of 60.0-69.9, adult Current Visit: Yes Status: Chronic (4) Obstructive sleep apnea Current Visit: No Status: Chronic Assessment and Plan: Recommend outpatient sleep study after discharge (5) Tobacco abuse Current Visit: No Status: Chronic Assessment and Plan: No longer smoking (6) DVT prophylaxis Current Visit: No Status: Acute Assessment and Plan: Heparin SubQ - Time Spent with Patient Total time spent is greater than 50% in coordination of care (as documented) at patient's floor/unit and/or counseling patient: Greater than 35 minutes Plan of Care Discussed with: patient Internal Medicine: Result - Labs CBC & Chem 7: 08/04/18 05:36 08/04/18 05:36 Labs: Short CBC 08/04/18 Range/Units 05:36 WBC 17.6 H (4.3-11.1) K/mcL Hgb 13.6 (11.5-15.4) g/dL Hct 39.4 (35.3-44.9) % Plt Count 227 (140-400) K/mcL Neutrophils # 14.6 H (1.6-8.9) K/mcL BMP 08/04/18 05:36 Sodium 133 L Potassium 4.2 Chloride 106 Carbon Dioxide 18 L BUN 22 H Creatinine 0.84 Glucose 355 H Calcium 9.1 - ABG Interpretation ABG results: PT/INR, D-dimer D-Dimer 372 ng/mLFEU (0-500) 08/01/18 13:41 Consult Discharge Plan - Plan Referrals: Michael Salazar MD [Primary Care Provider] - 08/12/18 2:30 pm <Reginald Turk - Last Filed: 08/04/18 16:32> Hospitalist Progress Note - Encounter Date of Encounter: 08/04/18 - Exam Vitals: Temp Pulse Resp BP Pulse Ox 97.8 F 76 16 132/86 97 08/04/18 16:16 08/04/18 16:16 08/04/18 16:16 08/04/18 16:16 08/04/18 16:16 - Assessment and Plan (1) Obstructive sleep apnea Current Visit: No Status: Chronic (2) Tobacco abuse Current Visit: No Status: Inactive (3) Asthma exacerbation Current Visit: Yes Status: Acute (4) CHF (congestive heart failure) Current Visit: Yes Status: Chronic (5) Morbid obesity with BMI of 60.0-69.9, adult Current Visit: Yes Status: Chronic - Time Spent with Patient Total time spent is greater than 50% in coordination of care (as documented) at patient's floor/unit and/or counseling patient: Internal Medicine: Result - Labs CBC & Chem 7: 08/04/18 05:36 08/04/18 05:36 Labs: Short CBC 08/04/18 Range/Units 05:36 WBC 17.6 H (4.3-11.1) K/mcL Hgb 13.6 (11.5-15.4) g/dL Hct 39.4 (35.3-44.9) % Plt Count 227 (140-400) K/mcL Neutrophils # 14.6 H (1.6-8.9) K/mcL BMP 08/04/18 05:36 Sodium 133 L Potassium 4.2 Chloride 106 Carbon Dioxide 18 L BUN 22 H Creatinine 0.84 Glucose 355 H Calcium 9.1 - ABG Interpretation ABG results: PT/INR, D-dimer D-Dimer 372 ng/mLFEU (0-500) 08/01/18 13:41 - Attending Attestation The history, physical exam, and medical decision making was performed by the medical student either while I was physically present and actively involved or I personally re-performed the exam and medical decision making. I have verified the accuracy of the medical student's documentation with regards to the history, physical exam findings, and medical decision making on 08/03/18. Ms Sweet is currently admitted for acute exac asthma (?COPD). She remains moderate to high risk due to potential for worsening clinical status. Continues to improved. She still needs diuresis for acute on chronic diastolic chf. Change steroids to po Closey monitor BS Exam: NAD, AAOx3 Obese Lung dimin bases Ht RRR Abd soft +BS Ext + edema Antic one more day in hosp <Josh Tilley S - Last Filed: 08/04/18 13:33> (1) Asthma exacerbation Qualifiers: Asthma severity: moderate Asthma persistence: persistent Qualified Code(s): J45.41 - Moderate persistent asthma with (acute) exacerbation (2) CHF (congestive heart failure) Qualifiers: Heart failure type: diastolic Heart failure chronicity: chronic Qualified Code(s): I50.32 - Chronic diastolic (congestive) heart failure <Reginald Turk R - Last Filed: 08/04/18 16:32> (3) Asthma exacerbation Qualifiers: Asthma severity: moderate Asthma persistence: persistent Qualified Code(s): J45.41 - Moderate persistent asthma with (acute) exacerbation (4) CHF (congestive heart failure) Qualifiers: Heart failure type: diastolic Heart failure chronicity: chronic Qualified Code(s): I50.32 - Chronic diastolic (congestive) heart failure
[2018-08-04] MEDS: Budesonide/Formoterol 160/4.5 1 PUFF INH IH SCH ×2 (10:51→22:33)
[2018-08-04] MEDS: Acetaminophen 325 MG TABLET PO PRN ×2 (12:54→23:40)
[2018-08-04] MEDS: Ondansetron 4 MG/2 ML VIAL IVP PRN (12:55)
[2018-08-04] MEDS: Azithromycin 250 MG TABLET PO SCH (18:53)
[2018-08-04] MEDS: Insulin DETEMIR 100 UNIT/ML X5UNITS SQ SCH (23:41)
[2018-08-05] MEDS: Acetylcysteine 10% 2 ML INHSOL IH SCH ×4 (03:40→21:57)
[2018-08-05] MEDS: Ipratropium/Albuterol Neb 3 ML IH SCH ×4 (03:40→21:57)
[2018-08-05 05:37] LABS: Basophils # 0.1 K/mcL (0.0-0.2); Basophils % 0.4 %; Eosinophils % 0.1 %; Hematocrit 41.1 % (35.3-44.9); Hemoglobin 14.2 g/dL (11.5-15.4); Immature Granulocytes % 1.5 % (0-4); Lymphocytes # 4.1 K/mcL (0.6-4.6); Lymphocytes % 29.8 %; Mean Corpuscular HGB Conc 34.5 g/dL (31.6-35.5); Mean Corpuscular Hemoglobin 29.4 pg (28.0-33.3); Mean Corpuscular Volume 85.1 fL (83.0-100.0); Mean Platelet Volume 9.7 fL (9.4-12.4); Monocytes # 0.8 K/mcL (0.0-1.3); Monocytes % 6.1 %; Neutrophils # 8.5 K/mcL (1.6-8.9); Platelet Count 231 K/mcL (140-400); Red Blood Count 4.83 M/mcL (3.82-4.97); Red Cell Distribution Width 12.2 % (11.5-14.5); Segmented Neutrophils % 62.1 %
[2018-08-05 05:54] LABS: BUN/Creatinine Ratio 31 (6-26); Blood Urea Nitrogen 30 mg/dL (6-20); Calcium 8.7 mg/dL (8.6-10.3); Carbon Dioxide 23 mEq/L (23-29); Chloride 104 mEq/L (98-107); Glucose 325 mg/dL (70-105); Osmolality,Calculated 297 (280-300); Potassium 3.3 mEq/L (3.5-5.1); Sodium 134 mEq/L (136-145); eGFR For Non-African Americans > 60 (> 60)
[2018-08-05] MEDS ORDERED: MethylPREDNISolone 40 MG/ML VIAL IVP SCH (09:00)
[2018-08-05] MEDS: Insulin LISPRO 300 UNITS/3 ML VIAL SQ SCH ×7 (10:03→21:47)
[2018-08-05] MEDS: *HR* Heparin 5,000 UNIT/ML VIAL SQ SCH ×2 (10:04→17:27)
[2018-08-05] MEDS: Loratadine 10 MG TABLET PO SCH (10:04)
[2018-08-05] MEDS: Furosemide 20 MG/2 ML VIAL IVP SCH (10:04)
[2018-08-05] MEDS: clonazePAM 0.5 MG TABLET PO SCH ×2 (10:05→21:44)
[2018-08-05] MEDS: Diltiazem CD (24hr) 120 MG CAPSULE PO SCH (10:05)
[2018-08-05] MEDS: (Umeclidinium Bromide [Incruse Ellipta] 62.5 MCG) IH SCH (10:05)
[2018-08-05] MEDS: Budesonide/Formoterol 160/4.5 1 PUFF INH IH SCH ×2 (10:57→21:57)
--- NOTE | 2018-08-05 14:32 | Internal Med Progress Note ---
Hospitalist Progress Note - Encounter Date of Encounter: 08/05/18 Time of Encounter: 14:00 - Subjective Interval History: Ms. Sweet is a 38 year old female with hx of asthma presented to ED with complaints of worsening dyspnea. She was evaluated and subsequently admitted Ms Sweet has hx of asthma and has had multiple admissions in the past. She started having symptoms about a week ago and she saw her PCP and was placed on aerosols in addition to MDI and steroids. She has been on PO Prednisone 60mg daily since Friday of this week. Despite this treatment she has continued to be very dyspneic. Today when she arrived in ED she was having a lot of difficulty breathing requiring CPAP. At this time she is still dsypneic at rest and continues to wheeze. 08/05: CC: SOB HPI: Patient states she still is short of breath. Maybe a little better but definitely not back to normal. She has also had some wheezing today. No chest pain. No nausea, vomiting, diarrhea. No fevers or chills. She was started on Lasix yesterday with some diuresis. Patient's sensation feels very tired today. She has a nonproductive cough. Other than history of present illness a 10 point review of systems is negative. - Exam Vitals: Temp Pulse Resp BP Pulse Ox 97.7 F 68 16 132/80 97 08/05/18 11:50 08/05/18 11:50 08/05/18 11:50 08/05/18 11:50 08/05/18 11:50 Exam: General: Morbidly obese, flat affect, oriented 3 Muc Mb moist Neck supple Head: Normocephalic Lungs: Wheezes heard B/L Heart: No rubs or gallops RRR Skin: dry and intact Extremities: 1+ edema, peripheral pulses 2/4 Neuro: nonfocal - Assessment and Plan (1) Asthma exacerbation Current Visit: Yes Status: Acute Assessment and Plan: Pt has hx of asthma. She has had symptoms for over a week. She has been on high dose Prednisone, aerosols and MDI at home and is still very symptomatic. Clinically not much better. Add mucinex. Diuresis. Continue aerosols, steroids, abx. 08/05: Very slow to improve On azithromyin day #2 I will increase steroids to tid dosing Aggressive pulm toilet Mucinex Will also tx CHF (see below) (2) Obstructive sleep apnea Current Visit: No Status: Chronic Assessment and Plan: Chronic issue. CPAP at HS and at naps (3) Tobacco abuse Current Visit: No Status: Inactive Assessment and Plan: No longer smoking. Ongoing cessation urged (4) CHF (congestive heart failure) Current Visit: Yes Status: Chronic Assessment and Plan: Pt reports hx of CHF though there is no echo in our system. Echo here is pending. Diurese today. 08/05: Acute on chronic Diastolic CHF. Echo 04/2018, nml EF but w/ diastolic dysfunction, mild MS IV Lasix, monitor. BP control Hold on BB saul to asthma exac. (5) Morbid obesity with BMI of 60.0-69.9, adult Current Visit: Yes Status: Chronic Assessment and Plan: Chronic issue DVT Prophylaxis: on Sub Q heparin - Time Spent with Patient Total time spent is greater than 50% in coordination of care (as documented) at patient's floor/unit and/or counseling patient: 25 - 35 minutes Plan of Care Discussed with: patient Internal Medicine: Result - Labs CBC & Chem 7: 08/05/18 04:59 08/05/18 04:59 Labs: Short CBC 08/05/18 Range/Units 04:59 WBC 13.7 H (4.3-11.1) K/mcL Hgb 14.2 (11.5-15.4) g/dL Hct 41.1 (35.3-44.9) % Plt Count 231 (140-400) K/mcL Neutrophils # 8.5 (1.6-8.9) K/mcL BMP 08/05/18 04:59 Sodium 134 L Potassium 3.3 L Chloride 104 Carbon Dioxide 23 BUN 30 H Creatinine 0.97 Glucose 325 H Calcium 8.7 - ABG Interpretation ABG results: PT/INR, D-dimer D-Dimer 372 ng/mLFEU (0-500) 08/01/18 13:41 - Impressions Impressions Head CT 08/04/18 17:00 IMPRESSION: No acute intracranial abnormality. D/ / Hoang Howell MD / Hoang Howell MD Interpreting Provider: Hoang Howell MD Consult Discharge Plan - Plan Referrals: Michael Salazar MD [Primary Care Provider] - 08/12/18 2:30 pm (1) Asthma exacerbation Qualifiers: Asthma severity: moderate Asthma persistence: persistent Qualified Code(s): J45.41 - Moderate persistent asthma with (acute) exacerbation (4) CHF (congestive heart failure) Qualifiers: Heart failure type: diastolic Heart failure chronicity: chronic Qualified Code(s): I50.32 - Chronic diastolic (congestive) heart failure
[2018-08-05] MEDS: Acetaminophen 325 MG TABLET PO PRN ×2 (14:39→21:55)
[2018-08-05] MEDS ORDERED: Furosemide 20 MG/2 ML VIAL IVP SCH (15:15)
[2018-08-05] MEDS: Azithromycin 250 MG TABLET PO SCH (17:27)
[2018-08-05] MEDS: methylPREDNISolone 125 MG/2 ML VIAL IVP SCH (17:28)
[2018-08-05] MEDS: Insulin DETEMIR 100 UNIT/ML X5UNITS SQ SCH (21:45)
[2018-08-06] MEDS: methylPREDNISolone 125 MG/2 ML VIAL IVP SCH ×2 (00:55→08:58)
[2018-08-06] MEDS: *HR* Heparin 5,000 UNIT/ML VIAL SQ SCH ×2 (00:55→08:14)
[2018-08-06] MEDS: Acetylcysteine 10% 2 ML INHSOL IH SCH ×3 (03:39→16:13)
[2018-08-06] MEDS: Ipratropium/Albuterol Neb 3 ML IH SCH ×3 (03:39→16:13)
[2018-08-06] MEDS ORDERED: Furosemide 40 MG/4 ML VIAL IVP SCH (08:00)
[2018-08-06] MEDS: Insulin LISPRO 300 UNITS/3 ML VIAL SQ SCH ×4 (08:11→11:58)
[2018-08-06] MEDS: (Umeclidinium Bromide [Incruse Ellipta] 62.5 MCG) IH SCH (08:54)
[2018-08-06] MEDS: Diltiazem CD (24hr) 120 MG CAPSULE PO SCH (08:54)
[2018-08-06] MEDS: clonazePAM 0.5 MG TABLET PO SCH (08:59)
[2018-08-06] MEDS: Loratadine 10 MG TABLET PO SCH (08:59)
[2018-08-06 09:28] LABS: BUN/Creatinine Ratio 35 (6-26); Blood Urea Nitrogen 33 mg/dL (6-20); Calcium 9.5 mg/dL (8.6-10.3); Carbon Dioxide 20 mEq/L (23-29); Chloride 100 mEq/L (98-107); Glucose 264 mg/dL (70-105); Osmolality,Calculated 284 (280-300); Potassium 3.9 mEq/L (3.5-5.1); Sodium 129 mEq/L (136-145); eGFR For Non-African Americans > 60 (> 60)
[2018-08-06] MEDS ORDERED: Insulin DETEMIR 100 UNIT/ML X5UNITS SQ SCH (09:45)
--- NOTE | 2018-08-06 09:57 | Internal Med Progress Note ---
Hospitalist Progress Note - Encounter Date of Encounter: 08/06/18 Time of Encounter: 08:30 - Subjective Interval History: Pt is a pleasant 38 y/o F and was seen and evaluated at bedside. Pt reports feeling a lot better with the congestion in her chest improving significantly. Pt still has wheezing and nonproductive cough. Pt has also been sleeping much better. Pt feels dehydrated and fatigued. Pt still reports headache since being in the hospital that does not improve with Tylenol. Glucose levels have come down to 251 today (peak of 406 on 08/03). Pt is currently on nasal cannula but tolerates BiPAP well overnight with the last O2Sat being 99%. Plan to discharge pt today with 60 mg PO of steroids with PCP f/u - Exam Vitals: Temp Pulse Resp BP Pulse Ox 97.9 F 73 14 133/85 99 08/06/18 07:14 08/06/18 07:14 08/06/18 07:14 08/06/18 07:14 08/06/18 07:14 Exam: Head: Normocephalic Lungs: Wheezes heard B/L. Tenderness to palpation of the lateral subcostal area B/L Heart: No rubs or gallops RRR. Peripheral pulses 2/4. Abdomen: No tenderness to deep palpation. Skin: no pallor or cyanosis noted. Skin is dry and intact. - Assessment and Plan (1) Asthma exacerbation Current Visit: Yes Status: Acute Assessment and Plan: Pt has hx of asthma. She has had symptoms for over a week. She has been on high dose Prednisone, aerosols and MDI at home and is still very symptomatic. CXR: Pulmonary interstitial edema present. Pt reports significantly less congestion in her chest despite still wheezing. Currently on mucinex and N-acetylcysteine Continue aerosols, steroids, abx (Azithromycin Day #3) Currently tapering steroid. 60 mg IVP Q8H Pt on bipap FiO2 35%overnight with latest O2Sat 99% (2) CHF (congestive heart failure) Current Visit: Yes Status: Chronic Assessment and Plan: Pt reports hx of CHF Last echocardiogram (04/17/18) found LVEF of 65-70% with moderate mitral stenosis No Beta [place] tx due to asthma exacerbation Furosemide 40 mg IVP BID (3) Morbid obesity with BMI of 60.0-69.9, adult Current Visit: Yes Status: Chronic (4) Obstructive sleep apnea Current Visit: No Status: Chronic Assessment and Plan: Recommend continuation of CPAP following discharge (5) Tobacco abuse Current Visit: No Status: Chronic Assessment and Plan: No longer smoking (6) DVT prophylaxis Current Visit: No Status: Acute Assessment and Plan: Heparin SubQ - Time Spent with Patient Total time spent is greater than 50% in coordination of care (as documented) at patient's floor/unit and/or counseling patient: Greater than 35 minutes Plan of Care Discussed with: patient Internal Medicine: Result - Labs CBC & Chem 7: 08/06/18 10:03 08/06/18 08:47 Labs: BMP 08/06/18 08:47 Sodium 129 L Potassium 3.9 Chloride 100 Carbon Dioxide 20 L BUN 33 H Creatinine 0.93 Glucose 264 H Calcium 9.5 - ABG Interpretation ABG results: PT/INR, D-dimer D-Dimer 372 ng/mLFEU (0-500) 08/01/18 13:41 Consult Discharge Plan - Plan Referrals: Michael Salazar MD [Primary Care Provider] - 08/12/18 2:30 pm (1) Asthma exacerbation Qualifiers: Asthma severity: moderate Asthma persistence: persistent Qualified Code(s): J45.41 - Moderate persistent asthma with (acute) exacerbation (2) CHF (congestive heart failure) Qualifiers: Heart failure type: diastolic Heart failure chronicity: chronic Qualified Code(s): I50.32 - Chronic diastolic (congestive) heart failure
[2018-08-06 10:15] LABS: Basophils # 0.1 K/mcL (0.0-0.2); Basophils % 0.7 %; Hematocrit 47.7 % (35.3-44.9); Hemoglobin 16.9 g/dL (11.5-15.4); Immature Granulocytes % 3.6 % (0-4); Lymphocytes # 1.5 K/mcL (0.6-4.6); Mean Corpuscular HGB Conc 35.4 g/dL (31.6-35.5); Mean Corpuscular Volume 81.8 fL (83.0-100.0); Mean Platelet Volume 9.7 fL (9.4-12.4); Monocytes # 0.2 K/mcL (0.0-1.3); Monocytes % 1.4 %; Platelet Count 294 K/mcL (140-400); Red Blood Count 5.83 M/mcL (3.82-4.97); Red Cell Distribution Width 11.9 % (11.5-14.5); Segmented Neutrophils % 85.3 %
[2018-08-06 10:51] VITALS: BP 139/88
[2018-08-06] MEDS: Budesonide/Formoterol 160/4.5 1 PUFF INH IH SCH (10:56)
[2018-08-06] MEDS: Ondansetron 4 MG/2 ML VIAL IVP PRN (13:20)
[2018-08-06] MEDS: Acetaminophen 325 MG TABLET PO PRN (13:20)
--- NOTE | 2018-08-06 13:22 | Discharge Summary ---
<Reginald Turk - Last Filed: 08/06/18 13:40> Date of Encounter: 08/06/18 - Discharge Diagnosis (1) Asthma exacerbation Priority: Primary Status: Acute Qualifiers: Asthma severity: moderate Asthma persistence: persistent Qualified Code(s ): J45.41 - Moderate persistent asthma with (acute) exacerbation (2) Obstructive sleep apnea Status: Chronic (3) Tobacco abuse Status: Inactive Assessment and Plan: Ongoing cessation urged (4) CHF (congestive heart failure) Status: Chronic Assessment and Plan: Change to Lasix 40 mg po bid No need to repeat echo in 6 months No BB ordered due to asthma No dusty as EF nml, BP reasonably controlled. Follow up BP with PCP Qualifiers: Heart failure type: diastolic Heart failure chronicity: chronic Qualified Code(s): I50.32 - Chronic diastolic (congestive) heart failure (5) Morbid obesity with BMI of 60.0-69.9, adult Status: Chronic Hospital course: Ms. Sweet is a 38 year old female - Time Spent with Patient Total time spent providing and/or coordinating discharge services: - Discharge Medications Prescriptions: Furosemide [Lasix] 40 mg PO BID 30 Days #60 tablet RX: predniSONE [PredniSONE] See Taper PO DAILY #54 tablet Home Medications: RX: Sertraline [Zoloft] 50 mg PO HS 01/28/16 [History] RX: Albuterol Sulfate [Proair Hfa] 2 puff IH Q6H PRN 05/23/16 [History] RX: clonazePAM [Klonopin] 0.5 mg PO BID 08/08/16 [History] RX: Ipratropium Neb [Atrovent Neb] 0.5 mg IH QID PRN 08/14/17 [History] RX: Mometasone/Formoterol [Dulera 200 Mcg/5 Mcg Inhaler] 2 puff IH BID 08/14/17 [History] RX: Montelukast [Singulair] 10 mg PO QPM 08/14/17 [History] RX: Iron Ps Complex/B12/Folic Acid [Poly-Iron 150 Forte Capsule] 1 each PO DAILY 12/23/17 [History] RX: Tiotropium [place] [Spiriva Respimat] 2 puff IH DAILY 12/23/17 [History] RX: Albuterol Neb [Proventil Neb] 2.5 mg IH TID #30 inhsol 12/25/17 [Rx] RX: Ipratropium/Albuterol Neb [Duoneb] 3 ml IH [id number] PRN #30 inhsol 12/25/17 [ Rx] RX: Loratadine [Claritin] 10 mg PO DAILY #30 tablet 12/25/17 [Rx] Insulin LISPRO [HumaLOG] 0 units SQ TIDWM PRN 04/17/18 [History] RX: dilTIAZem HCl [Diltiazem HCl] 120 mg PO DAILY 04/17/18 [History] Umeclidinium [place] [Incruse Ellipta] 62.5 mcg IH DAILY 04/17/18 [History] Furosemide [Lasix] 40 mg PO BID 30 Days #60 tablet 08/06/18 [Rx] RX: predniSONE [PredniSONE] See Taper PO DAILY #54 tablet 08/06/18 [Rx] Allergies/Adverse Reactions: 3 Allergy/AdvReac Type Severity Reaction Status Date / Time levofloxacin [From Levaquin] Allergy Anaphylaxis Verified 09/03/17 12:21 Penicillins [PCN] Allergy Anaphylaxis Verified 09/03/17 12:21 Date of admission: 08/01/18 17:38 Primary care physician: Michael Salazar MD Consults: 08/01/18 18:52 Consult to [employer] [CONS] Routine Reason for SW Consult: has [employer] Home oxygen 3L PRN during day and continuous at HS - Constitutional Vitals: Temp Pulse Resp BP Pulse Ox 97.9 F 75 20 139/88 91 08/06/18 10:50 08/06/18 10:50 08/06/18 10:50 08/06/18 10:50 08/06/18 10:50 - Patient Status Disposition: Home, Self-Care Condition: Fair - Discharge Instructions Follow Up With: Michael Salazar MD [Primary Care Provider] - 08/12/18 2:30 pm Forms: ED Satisfaction Letter - Attending Attestation I performed an independent internal examined this patient. I agree with the findings, assessment, and plan of medical student Josh Tilley. We discussed the case in detail on rounds. My exceptions to note outlined above including no need for repeat echo in 6 months. Patient is stable for discharge. She will continue on Lasix 40 mg by mouth twice a day. We did not start a beta ismael due to her asthma and concerns for worsening her symptoms. Her blood pressure is reasonably well controlled and we did not start an DUSTY inhibitor or ARB as her EF is normal. Patient needs to continue home oxygen as before for chronic hypoxemic respiratory failure. She was urged to get a new CPAP machine. Also recommend referral to bariatric surgeon for an opinion regarding weight loss. Exam: Gn NAD, morbidly obese Lung - dimin bs bases, no wheeze ht rrr abd soft ext 1+ edema Patient is stable for discharge. 37 minutes spent on discharge and coordination of care. Recommend ongoing smoking cessation. <Josh Tilley - Last Filed: 08/06/18 14:42> - NOTES TO OUTPATIENT PROVIDER Notes to Outpatient Provider: Manage steroid taper. Pt has been referred for bariatric surgery consult. Smoking cessation Date of Encounter: 08/06/18 Time of Encounter: 13:20 - Discharge Diagnosis (1) Asthma exacerbation Status: Acute Qualifiers: Asthma severity: moderate Asthma persistence: persistent Qualified Code(s ): J45.41 - Moderate persistent asthma with (acute) exacerbation (2) CHF (congestive heart failure) Status: Chronic Qualifiers: Heart failure type: diastolic Heart failure chronicity: chronic Qualified Code(s): I50.32 - Chronic diastolic (congestive) heart failure (3) Morbid obesity with BMI of 60.0-69.9, adult Status: Chronic (4) Obstructive sleep apnea Status: Chronic (5) Tobacco abuse Status: Chronic Hospital course: Ms. Sweet is a 38 year old female with a PMHx of CHF and recurrent episodes of asthma exacerbation initially presented with a 1 week hx of worsening SOB. Prednisone 60 mg was added by PCP to treatment regimen on (07/28), however pt did not improve and arrived to the ED 4 days later in a dyspneic state. Pt additionally has B/L wheezing throughout and a nonproductive cough. Pts main complaint is a heavy congestion in her chest. Pt additionally has a dx MELODY for which she typically uses a CPAP for, although she has not had her CPAP machine for the past couple of months. Pt also has DM and GERD. Pt was a daily smoker but has been recommended to quit. Pt has a family hx of COPD and PVD in her mother and htn and ca in her father. Pt does not participate in physical activity. Upon arriving pt required a CPAP which she has tolerated well. CXR found B/L pulmonary interstitial infiltrates. Glucose levels were monitored with insulin sliding scale and pt steroid dose has been slowly tapered through her stay. Mucolytics and N-acetylcysteine were given to the pt to clear up her chest congestion. Throughout hospital stay pt also reported a headache unrelieved by Tylenol. Head CT found no intracranial abnormality. Pts past dx of diastolic CHF (echo found LVEF of 65-70% with moderate mitral stenosis) was managed with Lasix. Assessment and Plan: 1. Asthma Exacerbation Utilize bronchodilators for pt asthma. Did not discharge on Beta Blockers as to not aggravate pts asthmatic state. Give steroid taper: 60 mg PO for 2 weeks, 40 mg PO 2 weeks. Have pt follow up with PCP next week to manage taper. 2. CHF Lasix 40 mg po bid No Beta Blockers due to asthmatic state Follow up BP with PCP 3. MELODY Recommend resuming CPAP use 4. Obesity Refer to Bariatric Surgery for consult 5. Tobacco Use Pt is a daily smoker Recommend smoking Cessation Discharge discussed with: patient Time spent discussing smoking cessation with patient: more than 10 minutes - Time Spent with Patient Total time spent providing and/or coordinating discharge services: Greater than 30 minutes Date of admission: 08/01/18 17:38 Primary care physician: Michael Salazar MD Consults: 08/01/18 18:52 Consult to [employer] [CONS] Routine Reason for SW Consult: has [employer] Home oxygen 3L PRN during day and continuous at HS - Constitutional Vitals: Temp Pulse Resp BP Pulse Ox 97.9 F 75 20 139/88 91 08/06/18 10:50 08/06/18 10:50 08/06/18 10:50 08/06/18 10:50 08/06/18 10:50 General appearance: Present: A&O X 3, pleasant, answers questions appropriately Exam: Head: Normocephalic Lungs: Wheezes heard B/L. Tenderness to palpation of the lateral subcostal area B/L Heart: No rubs or gallops RRR. Peripheral pulses 2/4. Abdomen: No tenderness to deep palpation. Skin: no pallor or cyanosis noted. Skin is dry and intact. - Patient Status Functional capacity at discharge: independent ambulation Overall status at discharge: patient is back to baseline - Diet and Activity Activity: resume usual activities as tolerated
== END 2018-08-06 17:26 | disposition home or self-care (01) | DRG 723 ==
LOC: EMEROOARM 12:41 → 2NENU 12:41 → SUATTDRO 15:46 → 2NENU 16:39
PROVIDERS: ADMIT Internal Medicine; ATTEND Internal Medicine

== ENCOUNTER 2018-11-03 16:12 | Inpatient (IN) ==
[2018-11-03] MEDS ORDERED: Ipratropium/Albuterol Neb 3 ML IH ONE (16:31)
[2018-11-03] MEDS ORDERED: predniSONE 20 MG TABLET PO ONE (16:32)
--- NOTE | 2018-11-03 16:36 | Emergency Department Note ---
Disposition Clinical Impression: Acute exacerbation of chronic obstructive airways disease Disposition: Admitted As Inpatient Condition: Good Forms: ED Satisfaction Letter General Adult HPI - General Chief complaint: ED Shortness of Breath/Dyspnea Stated complaint: TOREY Time Seen by Provider: 11/03/18 16:17 Nursing Notes Reviewed: Yes Vital Signs Reviewed: Yes - History of Present Illness HPI Narrative: 38-year-old obese female presents for 2 daughters for shortness of breath for the past week. Patient states that she usually uses CPAP at night however since the machine was stolen she has been able to get a new one her insurance companies working on it. Stopped smoking greater than 10 years ago normally uses oxygen only at night at 2-3 L/m but she has been using it pretty much 19 day for the past several days. Cough occasional green sputum very fatigued no chest pain or pressure no pleuritic pain no headache photophobia or nuchal rigidity. No headache. Patient is on maintenance patient's on pulse dose steroids over the past several days. No recent antibiotic use. No vomiting or diarrhea. Pain Scale: 0 - Related Data Home Medications Medication Instructions Recorded Confirmed Sertraline [Zoloft] 50 mg PO HS 01/28/16 08/01/18 Albuterol Sulfate [Proair Hfa] 2 puff IH Q6H PRN 05/23/16 08/01/18 clonazePAM [Klonopin] 0.5 mg PO BID 08/08/16 08/01/18 Ipratropium Neb [Atrovent Neb] 0.5 mg IH QID PRN 08/14/17 08/01/18 Mometasone/Formoterol [Dulera 200 2 puff IH BID 08/14/17 08/01/18 Mcg/5 Mcg Inhaler] Montelukast [Singulair] 10 mg PO QPM 08/14/17 08/01/18 Iron Ps Complex/B12/Folic Acid 1 each PO DAILY 12/23/17 08/01/18 [Poly-Iron 150 Forte Capsule] Tiotropium [place] [Spiriva 2 puff IH DAILY 12/23/17 08/01/18 Respimat] Insulin LISPRO [HumaLOG] 0 units SQ TIDWM PRN 04/17/18 08/01/18 Umeclidinium [place] [Incruse 62.5 mcg IH DAILY 04/17/18 08/01/18 Ellipta] dilTIAZem HCl [Diltiazem HCl] 120 mg PO DAILY 04/17/18 08/01/18 Previous Rx's Medication Instructions Recorded Albuterol Neb [Proventil Neb] 2.5 mg IH TID #30 inhsol 12/25/17 Ipratropium/Albuterol Neb [Duoneb] 3 ml IH [id number] PRN #30 inhsol 12/25/17 Loratadine [Claritin] 10 mg PO DAILY #30 tablet 12/25/17 Furosemide [Lasix] 40 mg PO BID 30 Days #60 tablet 08/06/18 predniSONE [PredniSONE] See Taper PO DAILY #54 tablet 08/06/18 Allergies Allergy/AdvReac Type Severity Reaction Status Date / Time levofloxacin [From Levaquin] Allergy Anaphylaxis Verified 11/03/18 16:22 Penicillins [PCN] Allergy Anaphylaxis Verified 11/03/18 16:22 All systems ED: reviewed and negative except as stated. Constitutional: Reports: weakness Cardiovascular: Reports: dyspnea on exertion Respiratory: Reports: dyspnea, wheezes, sputum production Past Medical History - Past Medical History Attestation: Yes The following information was validated with the patient. Source: patient Medical history: Reports: asthma, CHF, COPD, diabetes, GERD Surgical history: Reports: , cholecystectomy Psychiatric history: Reports: anxiety, depression PRACTICAL NURSE history: Reports: no PRACTICAL NURSE history, bilateral tubal ligation - Social History Smoking Status: Current every day smoker Smokeless Tobacco Status: No Alcohol use: Reports: none Drug use: Reports: none Physical Exam - General Limitations: no limitations General appearance: alert, in distress - Head Head exam: atraumatic, normocephalic - Eye Eye exam: Present: normal appearance, PERRL, EOMI - ENT ENT exam: normal exam, normal oropharynx - Neck Neck exam: Present: normal inspection, full ROM, trachea midline. Absent: lymphadenopathy - Chest Chest inspection: Present: normal inspection, symmetric chest wall rise - Respiratory Respiratory exam: Present: respiratory distress, wheezes, prolonged expiratory phase. Absent: accessory muscle use - Cardiovascular Cardiovascular exam: Present: normal rhythm, tachycardia - Abdominal Exam Abdominal exam: Present: soft, Non-Tender - Extremities Exam Extremities exam: Present: normal inspection, full ROM - Expanded Lower Extremity Exam Neurovascular/Tendon exam: Present: normal capillary refill Gait: not tested/not observed - Back Exam Back exam: Present: normal inspection, full ROM - Neurological Exam Neurological exam: Present: alert, oriented X3, CN II-XII intact - Psychiatric Psychiatric exam: Present: normal affect, normal mood - Skin Skin exam: Present: warm, dry, intact Course - Reevaluation(s) Reevaluation #1: Patient's below expiratory wheezing with increasing oxygen use at home fatigue. Patient can EKG troponin screening labs urinalysis triple DuoNeb 60 mg by mouth prednisone and a PA and lateral chest x-ray. Admission anticipated. Disposition pending providing 40 minutes of critical care service for this patient Time: 16:38 Time: 17:20 Vital Signs Temperature 98.0 F 11/03/18 16:21 Pulse Rate 116 11/03/18 16:21 Respiratory Rate 26 11/03/18 16:21 Blood Pressure 204/150 11/03/18 16:21 O2 Sat by Pulse Oximetry 96 11/03/18 16:21 Temperature 98.0 F 11/03/18 16:45 Pulse Rate 116 11/03/18 16:45 Respiratory Rate 26 11/03/18 16:45 Blood Pressure 204/150 11/03/18 16:45 O2 Sat by Pulse Oximetry 96 11/03/18 16:45 Oxygen Delivery Oxygen Delivery Room Air Medical Decision Making - Medical Records Medical records reviewed: Yes I reviewed the patient's medical records. - Lab Data Lab results reviewed: Yes I reviewed the patient's lab results. Result diagrams: 11/03/18 16:36 11/03/18 16:36 Lab Results 11/03/18 11/03/18 11/03/18 Range/Units 16:36 16:36 16:36 WBC 14.5 H (4.3-11.1) K/mcL RBC 5.04 H (3.82-4.97) M/mcL Hgb 14.4 (11.5-15.4) g/dL Hct 41.8 (35.3-44.9) % MCV 82.9 L (83.0-100.0) fL MCH 28.6 (28.0-33.3) pg MCHC 34.4 (31.6-35.5) g/dL RDW 12.4 (11.5-14.5) % Plt Count 246 (140-400) K/mcL MPV 9.3 L (9.4-12.4) fL Immature Gran % 0.8 (0-4) % Seg Neutrophils % 68.4 % Lymphocytes % 24.8 % Monocytes % 4.3 % Eosinophils % 1.3 % Basophils % 0.4 % Neutrophils # 10.0 H (1.6-8.9) K/mcL Lymphocytes # 3.6 (0.6-4.6) K/mcL Monocytes # 0.6 (0.0-1.3) K/mcL Eosinophils # 0.2 (0.0-0.6) K/mcL Basophils # 0.1 (0.0-0.2) K/mcL Sodium 141 (136-145) mEq/L Potassium 3.7 (3.5-5.1) mEq/L Chloride 110 H (98-107) mEq/L Carbon Dioxide 25 (23-29) mEq/L BUN 17 (6-20) mg/dL Creatinine 1.17 (0.60-1.20) mg/dL Est GFR ( Amer) > 60 (> 60) Est GFR (Non-Af Amer) 51 L (> 60) BUN/Creatinine Ratio 15 (6-26) Glucose 120 H (70-105) mg/dL Calculated Osmolality 295 (280-300) Calcium 8.8 (8.6-10.3) mg/dL Troponin I < 0.03 (< 0.04) ng/mL - Radiology Data Radiology results reviewed: Yes I reviewed the patient's radiology results. - EKG Data EKG #1 EKG attestation: Yes I reviewed and interpreted this EKG. EKG results narrative: Twelve-lead EKG interpreted without the benefit Cardiologic assistance shows s inus tachycardia 114 bpm. Normal VT QRS and QT corrected. Prolonged right axis deviation. No acute ischemic changes noted. No acute changes when compared to prior EKG dated 08/01/2018.
[2018-11-03 16:52] LABS: Basophils # 0.1 K/mcL (0.0-0.2); Basophils % 0.4 %; Eosinophils # 0.2 K/mcL (0.0-0.6); Eosinophils % 1.3 %; Hematocrit 41.8 % (35.3-44.9); Hemoglobin 14.4 g/dL (11.5-15.4); Immature Granulocytes % 0.8 % (0-4); Lymphocytes # 3.6 K/mcL (0.6-4.6); Lymphocytes % 24.8 %; Mean Corpuscular HGB Conc 34.4 g/dL (31.6-35.5); Mean Corpuscular Hemoglobin 28.6 pg (28.0-33.3); Mean Corpuscular Volume 82.9 fL (83.0-100.0); Mean Platelet Volume 9.3 fL (9.4-12.4); Monocytes # 0.6 K/mcL (0.0-1.3); Monocytes % 4.3 %; Platelet Count 246 K/mcL (140-400); Red Blood Count 5.04 M/mcL (3.82-4.97); Red Cell Distribution Width 12.4 % (11.5-14.5); Segmented Neutrophils % 68.4 %
[2018-11-03 17:14] LABS: BUN/Creatinine Ratio 15 (6-26); Blood Urea Nitrogen 17 mg/dL (6-20); Calcium 8.8 mg/dL (8.6-10.3); Carbon Dioxide 25 mEq/L (23-29); Chloride 110 mEq/L (98-107); Glucose 120 mg/dL (70-105); Osmolality,Calculated 295 (280-300); Potassium 3.7 mEq/L (3.5-5.1); Sodium 141 mEq/L (136-145); eGFR For Non-African Americans 51 (> 60)
[2018-11-03 18:07] LABS: Bilirubin,Urine Negative (Negative); Blood,Urine Negative (Negative); Clarity,Urine Clear (Clear); Color,Urine Yellow (Yellow); Glucose,Urine (UA) Normal (Normal); Ketones,Urine Negative (Negative); Leukocyte Esterase,Urine Negative (Negative); Nitrite,Urine Negative (Negative); Protein,Urine Negative (Neg-Trace); Urobilinogen,Urine Normal (Normal)
[2018-11-03] MEDS ORDERED: Naloxone 0.4 MG/ML INJ IVP PRN (19:34)
--- NOTE | 2018-11-03 19:50 | Internal Med History&Physical ---
Date of Encounter: 11/03/18 Time of Encounter: 19:48 Internal Medicine - H&P: HPI Chief complaint: SOB History of present illness: Ms. Sweet is a 38 year old female with a PMH of asthma, CHF, and mitral stenosis who presents with shortness of breath for the past week. Patient went to see her primary care physician last Friday who gave her a steroid injection and started her on 60 mg of prednisone for 5 days plus a Z-Reilly. Patient states that her symptoms did not improve. She normally uses oxygen only at night at 2- 3 L/m but she has been using it pretty much all day for the past several days. Cough up occasional green sputum. Patient reports that she normally sleeps on 2 pillows but has been unable to do so without being short of breath and has been sleeping on the recliner as of late. She also reports paroxysmal nocturnal dyspnea. Patient states she is compliant with her medications including her Lasix. She reports some worsening lower extremity edema. Denies any sick contacts. Patient denies any fever, chills, nausea, vomiting, chest pain or d iarrhea. Patient mildly tachypnic and tachycardic in the ED saturating in the low 90's on 2 L. Patient had a mild leukocytosis and chest x-ray showing congestion. Patient received a breathing treatment in the ED as well as steroids. We will admit for possible CHF and asthma exacerbation. Past Med Surg Social Fam HX - Past Medical History Medical history: asthma, CHF, COPD, diabetes, GERD Additional medical history: "heart problems" Psychiatric history: anxiety, depression - Past Surgical History Surgical History: , cholecystectomy Additional surgical history: Tubal Ligation - Social History Smoking Status: Current every day smoker Smokeless Tobacco Status: No Alcohol use: none Drug use: none - Family History Mother Living Status: Still Living Hx Family Cardiac Disorders: Yes (pvd) Hx Family Respiratory Disorders: Yes (copd) Father Living Status: Hx Family Cardiac Disorders: No Hx Family Respiratory Disorders: Yes Hx Family Cancer: Yes (bone and breast) Hx Family GI Disorders: Yes Hx Family Endocrine Disorder: No Hx Family Neuromuscular Disorders: No Hx Family Neurologic Disorders: No Hx Family HEENT Disorders: No Hx Family Autoimmune Disorders: Yes Internal Medicine - H&P: Meds Sertraline [Zoloft] 50 mg PO HS 01/28/16 [History] Albuterol Sulfate [Proair Hfa] 2 puff IH Q6H PRN 05/23/16 [History] clonazePAM [Klonopin] 0.5 mg PO BID 08/08/16 [History] Ipratropium Neb [Atrovent Neb] 0.5 mg IH QID PRN 08/14/17 [History] Mometasone/Formoterol [Dulera 200 Mcg/5 Mcg Inhaler] 2 puff IH BID 08/14/17 [History] Montelukast [Singulair] 10 mg PO QPM 08/14/17 [History] Iron Ps Complex/B12/Folic Acid [Poly-Iron 150 Forte Capsule] 1 each PO DAILY 12/23/17 [History] Tiotropium [place] [Spiriva Respimat] 2 puff IH DAILY 12/23/17 [History] Albuterol Neb [Proventil Neb] 2.5 mg IH TID #30 inhsol 12/25/17 [Rx] Ipratropium/Albuterol Neb [Duoneb] 3 ml IH [id number] PRN #30 inhsol 12/25/17 [Rx] Loratadine [Claritin] 10 mg PO DAILY #30 tablet 12/25/17 [Rx] Insulin LISPRO [HumaLOG] 0 units SQ TIDWM PRN 04/17/18 [History] Umeclidinium [place] [Incruse Ellipta] 62.5 mcg IH DAILY 04/17/18 [History] dilTIAZem HCl [Diltiazem HCl] 120 mg PO DAILY 04/17/18 [History] Furosemide [Lasix] 40 mg PO BID 30 Days #60 tablet 08/06/18 [Rx] predniSONE [PredniSONE] See Taper PO DAILY #54 tablet 08/06/18 [Rx] Allergy/AdvReac Type Severity Reaction Status Date / Time levofloxacin [From Levaquin] Allergy Anaphylaxis Verified 11/03/18 16:22 Penicillins [PCN] Allergy Anaphylaxis Verified 11/03/18 16:22 All Systems PM: A 10-system review of systems was performed and is negative for pertinent findings except as documented above in the HPI. - Constitutional Constitutional: no chills, no fever(s), no night sweats - EENT Eyes: no change in vision, no discharge, no pain, no photophobia Ears: no ear discharge, no ear pain, no tinnitus Nose, mouth and throat: no dysphagia, no nasal discharge, no neck pain, no sore throat - Cardiovascular Cardiovascular ROS IM: no chest pain, no diaphoresis, no dyspnea, no lightheadedness, no palpitations, no syncope - Respiratory Respiratory: no cough, no dyspnea, no wheezing, no excessive phlegm production - Gastrointestinal Gastrointestinal: no abdominal pain, no diarrhea, no hematemesis, no hematochezia, no melena, no nausea, no vomiting - Genitourinary Genitourinary: no change in urinary stream, no dysuria, no flank pain, no hematuria - Musculoskeletal Musculoskeletal ROS IM: no numbness, no tingling - Integumentary Integumentary IM: no rash, no unusual bruising - Neurological Neurological ROS: no confusion, no convulsions, no focal weakness, no numbness, no tingling, no tremor(s) - Hematologic/Lymphatic Hematologic/Lymphatic: no easy bruising - Constitutional Vitals: Temp Pulse Resp BP Pulse Ox 98.0 F 116 22 172/100 96 11/03/18 16:45 11/03/18 16:45 11/03/18 19:36 11/03/18 19:36 11/03/18 16:45 Exam: General: Alert and oriented 3 sitting up in bed in mild respiratory distress Skin:Normal color, no rash, no lesions. HEENT:EOM, pupils equal, round and reactive. Cardiovascular:Normal S1 & S2, no rubs, murmurs or gallops. No JVD. Pulse regu lar. Lungs: Decreased breath sounds bilaterally with expiratory wheeze Abdomen:Soft, non-tender, no rigidity. Extremities: Trace lower extremity edema Neurological:Normal cognition and motor skills. Pulses:Carotid and radial pulses normal +2. Rest of the physical exam is non contributory Internal Med - H&P Results - Labs CBC & Chem 7: 11/04/18 04:24 11/04/18 04:24 Labs: Short CBC 11/03/18 Range/Units 16:36 WBC 14.5 H (4.3-11.1) K/mcL Hgb 14.4 (11.5-15.4) g/dL Hct 41.8 (35.3-44.9) % Plt Count 246 (140-400) K/mcL Neutrophils # 10.0 H (1.6-8.9) K/mcL BMP 11/03/18 16:36 Sodium 141 Potassium 3.7 Chloride 110 H Carbon Dioxide 25 BUN 17 Creatinine 1.17 Glucose 120 H Calcium 8.8 Cardiac Enzymes 11/03/18 Range/Units 16:36 Troponin I < 0.03 (< 0.04) ng/mL Urine 11/03/18 Range/Units 17:56 Urine Color Yellow (Yellow) Urine Clarity Clear (Clear) Urine pH 7.0 (5.0-8.0) pH Units Ur Specific [place] 1.020 (1.010-1.025) Urine Protein Negative (Neg-Trace) mg/dL Urine Glucose (UA) Normal (Normal) mg/dL - Impressions ITS Impressions Chest X-Ray 11/03/18 16:33 IMPRESSION: Cardiomegaly with mild interstitial edema. D/ / 11/03/2018 17:27:14 Vignesh Nichole MD / ramesh Interpreting Provider: Vignesh Nichole MD - Assessment and plan (1) Acute respiratory failure with hypoxemia Current Visit: No Status: Acute Assessment and plan: Patient presents with worsening dyspnea for the past week. At baseline patient is on 2-3 L of oxygen as needed and at night. States that she is required oxygen daily with sats in the low 90s. States that her baseline O2 saturations are 94-95%. Suspect combination of asthma and CHF exacerbation. Appears to be improving and stable from a respiratory standpoint. We will treat underlying cause. (2) Acute asthma exacerbation Current Visit: No Status: Acute Assessment and plan: Patient presents with what appears to be in acute exacerbation of her asthma with worsening dyspnea requiring daily use of her oxygen. Expiratory wheeze noted on physical examination with mild improvement after receiving nebulizer treatment in the ED. Patient received high-dose steroids as outpatient without improvement. Currently appears to be stable from a respiratory standpoint on 2 L oxygen saturating around 93%. -Continue with DuoNeb's -We will continue steroids Solu-Medrol 40 mg every 6 -We will empirically cover for possible community-acquired pneumonia and obtain a respiratory infectious panel. If RIP positive can consider discontinuing antibiotics due to low suspicion for pneumonia. Qualifiers: Asthma severity: severe Asthma persistence: unspecified Qualified Code(s): J45.901 - Unspecified asthma with (acute) exacerbation (3) Acute exacerbation of CHF (congestive heart failure) Current Visit: Yes Status: Acute Assessment and plan: Patient presents with clinical signs of CHF exacerbation given history of dyspnea, orthopnea, paroxysmal nocturnal dyspnea and worsening lower extremity edema. Patient has crackles bilaterally at the bases on physical examination. Chest x-ray does show findings consistent with vascular congestion. Patient had an echocardiogram performed in April which showed a LVEF of 65-70% with mild ventricular diastolic dysfunction and moderate mitral stenosis. -Strict I's and O's, daily weights -We will give one-time dose of IV Lasix 40 mg -Consider repeat echocardiogram Qualifiers: Heart failure type: unspecified Qualified Code(s): I50.9 - Heart failure, unspecified (4) Leukocytosis, unspecified Current Visit: Yes Status: Acute Assessment and plan: Neutrophilic leukocytosis of 14.5. Possibly secondary to underlying respiratory infection versu recent steroids. -We will start patient on IV antibiotics for possible pneumonia Qualifiers: Leukocytosis type: unspecified Qualified Code(s): D72.829 - Elevated white blood cell count, unspecified (5) Obstructive sleep apnea Current Visit: No Status: Chronic Assessment and plan: BiPAP at night. (6) DVT prophylaxis Current Visit: No Status: Acute Assessment and plan: Subcutaneous heparin - Time Spent With Patient Total time spent is greater than 50% in coordination of care (as documented) at patient's floor/unit and/or counseling patient:
[2018-11-03] MEDS: Ipratropium/Albuterol Neb 3 ML IH SCH ×2 (20:37→23:02)
[2018-11-03] MEDS: Azithromycin 500 MG in D5% in Water 250 ML IVPB SCH (20:37)
[2018-11-03] MEDS ORDERED: Furosemide 40 MG/4 ML VIAL IVP ONE (23:01)
[2018-11-03] MEDS: Doxycycline 100 MG CAPSULE PO SCH (23:32)
[2018-11-03] MEDS: *HR* Heparin 5,000 UNIT/ML VIAL SQ SCH (23:34)
[2018-11-03] MEDS: MethylPREDNISolone 40 MG/ML VIAL IVP SCH (23:35)
[2018-11-03] MEDS ORDERED: Dextrose Gel 15 GM/37.5 ML TUBE PO PRN ×2 (23:50)
[2018-11-03] MEDS ORDERED: D5% in Water 1,000 ML IVC PRN (23:50)
[2018-11-03] MEDS ORDERED: *HR* Dextrose 50 % in Water (Syg) 50 ML SYRINGE IVP PRN (23:50)
[2018-11-04] MEDS: Insulin LISPRO 300 UNITS/3 ML VIAL SQ SCH ×5 (00:04→22:35)
[2018-11-04 01:42] LABS: Adenovirus Not Detected (Not Detect); Bordetella Pertussis Not Detected (Not Detect); Chlamydophila pneumoniae Not Detected (Not Detect); Coronavirus 229E Not Detected (Not Detect); Coronavirus HKU1 Not Detected (Not Detect); Coronavirus NL63 Not Detected (Not Detect); Coronavirus OC43 Not Detected (Not Detect); Human Metapneumovirus Not Detected (Not Detect); Human Rhinovirus/Enterovirus DETECTED (Not Detect); Influenza A Subtype 2009 H1 Not Detected (Not Detect); Influenza A Untypeable Not Detected (Not Detect); Influenza B Not Detected (Not Detect); Mycoplasma pneumoniae Not Detected (Not Detect); Parainfluenza Virus 1 Not Detected (Not Detect); Parainfluenza Virus 2 Not Detected (Not Detect); Parainfluenza Virus 3 Not Detected (Not Detect); Parainfluenza Virus 4 Not Detected (Not Detect); Respiratory Syncytial Virus Not Detected (Not Detect)
[2018-11-04] MEDS: Ipratropium/Albuterol Neb 3 ML IH SCH ×4 (04:52→23:44)
[2018-11-04 05:01] LABS: Basophils % 0.1 %; Hematocrit 43.7 % (35.3-44.9); Hemoglobin 14.8 g/dL (11.5-15.4); Immature Granulocytes % 1.1 % (0-4); Lymphocytes # 1.3 K/mcL (0.6-4.6); Lymphocytes % 8.9 %; Mean Corpuscular HGB Conc 33.9 g/dL (31.6-35.5); Mean Corpuscular Hemoglobin 28.3 pg (28.0-33.3); Mean Corpuscular Volume 83.6 fL (83.0-100.0); Mean Platelet Volume 9.5 fL (9.4-12.4); Monocytes # 0.1 K/mcL (0.0-1.3); Monocytes % 0.5 %; Neutrophils # 12.5 K/mcL (1.6-8.9); Platelet Count 247 K/mcL (140-400); Red Blood Count 5.23 M/mcL (3.82-4.97); Red Cell Distribution Width 12.3 % (11.5-14.5); Segmented Neutrophils % 89.4 %
[2018-11-04 05:19] LABS: Alanine Aminotransferase 20 Units/L (7-52); Albumin 4.2 g/dL (3.5-5.7); Albumin/Globulin Ratio 1.5 (1.1-2.2); Alkaline Phosphatase 96 Units/L (34-104); Aspartate Amino Transferase 12 Units/L (13-39); BUN/Creatinine Ratio 17 (6-26); Bilirubin,Total 0.8 mg/dL (0.3-1.0); Blood Urea Nitrogen 17 mg/dL (6-20); Calcium 9.2 mg/dL (8.6-10.3); Carbon Dioxide 27 mEq/L (23-29); Chloride 105 mEq/L (98-107); Globulin 2.8 g/dL (2.4-3.5); Glucose 221 mg/dL (70-105); Osmolality,Calculated 296 (280-300); Potassium 3.5 mEq/L (3.5-5.1); Sodium 139 mEq/L (136-145); eGFR For Non-African Americans > 60 (> 60)
[2018-11-04] MEDS: MethylPREDNISolone 40 MG/ML VIAL IVP SCH ×3 (06:18→16:46)
[2018-11-04] MEDS: *HR* Heparin 5,000 UNIT/ML VIAL SQ SCH ×3 (06:18→22:35)
[2018-11-04] MEDS: Doxycycline 100 MG CAPSULE PO SCH ×2 (09:07→22:35)
[2018-11-04] MEDS: Furosemide 40 MG TABLET PO SCH (15:10)
[2018-11-04] MEDS: clonazePAM 0.5 MG TABLET PO PRN ×2 (15:10→22:35)
--- NOTE | 2018-11-04 15:30 | Internal Med Progress Note ---
Hospitalist Progress Note - Encounter Date of Encounter: 11/04/18 Time of Encounter: 15:26 - Subjective Interval History: Continues to have dyspnea and wheezing with non productive cough. - Exam Vitals: Temp Pulse Resp BP Pulse Ox 97.8 F 102 16 163/77 90 11/04/18 15:00 11/04/18 15:00 11/04/18 15:00 11/04/18 15:00 11/04/18 15:00 Exam: General: Alert and oriented 3 sitting up in bed in mild respiratory distress Skin:Normal color, no rash, no lesions. HEENT:EOMI, PERRLA Cardiovascular:Normal S1 & S2, no rubs, murmurs or gallops. No JVD. Pulse regular. Lungs: Decreased breath sounds bilaterally with expiratory wheeze, prolonged expiratory phase Abdomen:Soft, non-tender, no rigidity. Extremities: Trace lower extremity edema Neurological:Normal cognition and motor skills. Pulses:Carotid and radial pulses normal +2. Rest of the physical exam is non contributory - Assessment and Plan (1) Acute respiratory failure with hypoxemia Current Visit: No Status: Acute Assessment and Plan: dyspnea x 1 week failed outpatient treatment with z-pack and oral steroids on 2-3 L o2 at baseline but mostly at HS Suspect combination of asthma, CHF exacerbation and Viral respiratory infection + Rhinovirus continue nebs, azithromycin, iv steroids, claritin, singulair, and ellipta supplementory O2 PRN BIpap at HS (2) Acute asthma exacerbation Current Visit: No Status: Acute Assessment and Plan: Patient presents with what appears to be in acute exacerbation of her asthma with worsening dyspnea requiring daily use of her oxygen. Expiratory wheeze persisting today with prolonged expiratory phase. Currently appears to be stable from a respiratory standpoint on 2-3 L oxygen saturating around 90-93%%. as above (3) Obstructive sleep apnea Current Visit: No Status: Chronic Assessment and Plan: Continue BiPAP at night. (4) Leukocytosis, unspecified Current Visit: Yes Status: Acute Assessment and Plan: leukocytosis with neutropenia has been on oral steroids x5 days prior to admission cxr with interstitial edema; no consolidation identified afebrile and hemodynamically stable; no SIRS criteria monitor labs daily (5) Acute exacerbation of CHF (congestive heart failure) Current Visit: Yes Status: Acute Assessment and Plan: Diastolic HF CXR with mild interstitial edema received IV lasix x 1 on admission restart home lasix BID does not appear fluid overloaded on exam DVT Prophylaxis: Heparin SC - Time Spent with Patient Total time spent is greater than 50% in coordination of care (as documented) at patient's floor/unit and/or counseling patient: less than 15 minutes Plan of Care Discussed with: patient Internal Medicine: Result - Labs CBC & Chem 7: 11/04/18 04:24 11/04/18 04:24 Labs: Short CBC 11/03/18 11/04/18 Range/Units 16:36 04:24 WBC 14.5 H 14.0 H (4.3-11.1) K/mcL Hgb 14.4 14.8 (11.5-15.4) g/dL Hct 41.8 43.7 (35.3-44.9) % Plt Count 246 247 (140-400) K/mcL Neutrophils # 10.0 H 12.5 H (1.6-8.9) K/mcL BMP 11/03/18 11/04/18 16:36 04:24 Sodium 141 139 Potassium 3.7 3.5 Chloride 110 H 105 Carbon Dioxide 25 27 BUN 17 17 Creatinine 1.17 0.99 Glucose 120 H 221 H Calcium 8.8 9.2 Cardiac Enzymes 11/03/18 Range/Units 16:36 Troponin I < 0.03 (< 0.04) ng/mL Liver Function 11/04/18 Range/Units 04:24 Total Bilirubin 0.8 (0.3-1.0) mg/dL AST 12 L (13-39) Units/L ALT 20 (7-52) Units/L Alkaline Phosphatase 96 (34-104) Units/L Albumin 4.2 (3.5-5.7) g/dL Urine 11/03/18 Range/Units 17:56 Urine Color Yellow (Yellow) Urine Clarity Clear (Clear) Urine pH 7.0 (5.0-8.0) pH Units Ur Specific [place] 1.020 (1.010-1.025) Urine Protein Negative (Neg-Trace) mg/dL Urine Glucose (UA) Normal (Normal) mg/dL - Impressions Impressions Chest X-Ray 11/03/18 16:33 IMPRESSION: Cardiomegaly with mild interstitial edema. D/ / 11/03/2018 17:27:14 Vignesh Nichole MD / ramesh Interpreting Provider: Vignesh Nichole MD Consult Discharge Plan - Plan Referrals: Michael Salazar MD [Primary Care Provider] - (2) Acute asthma exacerbation Qualifiers: Asthma severity: severe Asthma persistence: unspecified Qualified Code(s): J45.901 - Unspecified asthma with (acute) exacerbation (4) Leukocytosis, unspecified Qualifiers: Leukocytosis type: unspecified Qualified Code(s): D72.829 - Elevated white blood cell count, unspecified (5) Acute exacerbation of CHF (congestive heart failure) Qualifiers: Heart failure type: unspecified Qualified Code(s): I50.9 - Heart failure, unspecified
[2018-11-04] MEDS: Acetaminophen 325 MG TABLET PO PRN (16:46)
[2018-11-04] MEDS: Azithromycin 500 MG in D5% in Water 250 ML IVPB SCH (19:31)
[2018-11-05] MEDS: MethylPREDNISolone 40 MG/ML VIAL IVP SCH ×5 (00:40→23:37)
[2018-11-05 04:07] LABS: Basophils % 0.2 %; Hematocrit 40.2 % (35.3-44.9); Hemoglobin 13.7 g/dL (11.5-15.4); Immature Granulocytes % 0.9 % (0-4); Lymphocytes # 1.3 K/mcL (0.6-4.6); Mean Corpuscular HGB Conc 34.1 g/dL (31.6-35.5); Mean Corpuscular Hemoglobin 28.7 pg (28.0-33.3); Mean Corpuscular Volume 84.3 fL (83.0-100.0); Mean Platelet Volume 9.4 fL (9.4-12.4); Monocytes # 0.6 K/mcL (0.0-1.3); Monocytes % 2.6 %; Neutrophils # 19.8 K/mcL (1.6-8.9); Platelet Count 234 K/mcL (140-400); Red Blood Count 4.77 M/mcL (3.82-4.97); Red Cell Distribution Width 12.6 % (11.5-14.5); Segmented Neutrophils % 90.3 %
[2018-11-05] MEDS: Ipratropium/Albuterol Neb 3 ML IH SCH ×4 (04:18→23:24)
[2018-11-05 04:27] LABS: BUN/Creatinine Ratio 25 (6-26); Blood Urea Nitrogen 24 mg/dL (6-20); Calcium 9.4 mg/dL (8.6-10.3); Carbon Dioxide 24 mEq/L (23-29); Chloride 106 mEq/L (98-107); Glucose 319 mg/dL (70-105); Osmolality,Calculated 300 (280-300); Sodium 137 mEq/L (136-145); eGFR For Non-African Americans > 60 (> 60)
[2018-11-05] MEDS: *HR* Heparin 5,000 UNIT/ML VIAL SQ SCH ×3 (05:20→21:34)
[2018-11-05] MEDS: Furosemide 40 MG TABLET PO SCH ×2 (07:53→16:33)
[2018-11-05] MEDS: Loratadine 10 MG TABLET PO SCH (07:53)
[2018-11-05] MEDS: Doxycycline 100 MG CAPSULE PO SCH ×2 (07:53→21:34)
[2018-11-05] MEDS: (Umeclidinium Bromide [Incruse Ellipta] 62.5 MCG) IH SCH (07:54)
[2018-11-05] MEDS: Insulin LISPRO 300 UNITS/3 ML VIAL SQ SCH ×4 (07:56→21:35)
--- NOTE | 2018-11-05 10:08 | Internal Med Progress Note ---
Hospitalist Progress Note - Encounter Date of Encounter: 11/05/18 Time of Encounter: 10:06 - Subjective Interval History: Continues to have dyspnea and wheezing with non productive cough. No acute change in condition overnight. - Exam Vitals: Temp Pulse Resp BP Pulse Ox 9.6 F L 88 18 137/86 94 11/05/18 07:42 11/05/18 07:42 11/05/18 07:42 11/05/18 07:42 11/05/18 07:42 Exam: General: Alert and oriented 3 sitting up in bed in mild respiratory distress Skin:Normal color, no rash, no lesions. HEENT:EOMI, PERRLA Cardiovascular:Normal S1 & S2, no rubs, murmurs or gallops. No JVD. Pulse regular. Lungs: Decreased breath sounds bilaterally with expiratory wheeze, & prolonged expiratory phase. Exertional dyspnea while ambulating in room Abdomen:Soft, non-tender, no rigidity. Extremities: Trace lower extremity edema Neurological:Normal cognition and motor skills. Pulses:Carotid and radial pulses normal +2. Rest of the physical exam is non contributory - Assessment and Plan (1) Acute respiratory failure with hypoxemia Current Visit: No Status: Acute Assessment and Plan: dyspnea x 1 week failed outpatient treatment with z-pack and oral steroids on 2-3 L o2 at baseline but mostly at HS Suspect combination of asthma, CHF exacerbation and Viral respiratory infection + Rhinovirus continue nebs, azithromycin, iv steroids, claritin, singulair, and ellipta supplementory O2 PRN BIpap at HS 11/05--continues to have dyspnea with expiratory wheezing. Patient is continuing to require full-time O2 supplementation to-3 L nasal cannula. Incre ase in leukocytosis overnight but this is most likely caused by steroids. She remains nontoxic appearing, afebrile and hemodynamically stable. She was able to ambulate around the room today with improvement but is still dyspneic beyond baseline. She will continue to stay overnight for further monitoring and treatment and if she continues to improve consider discharge in the morning with oral steroid supplementation and azithromycin. (2) Acute asthma exacerbation Current Visit: No Status: Acute Assessment and Plan: Treat as above (3) Obstructive sleep apnea Current Visit: No Status: Chronic Assessment and Plan: Continue BiPAP at night. (4) Leukocytosis, unspecified Current Visit: Yes Status: Acute (5) Acute exacerbation of CHF (congestive heart failure) Current Visit: Yes Status: Acute Assessment and Plan: Diastolic HF CXR with mild interstitial edema received IV lasix x 1 on admission restart home lasix BID 2 L fluid restriction diet/low sodium diet Continue to monitor I's and O's Continue daily weight Weight remains stable overnight does not appear fluid overloaded on exam DVT Prophylaxis: Heparin SC - Time Spent with Patient Total time spent is greater than 50% in coordination of care (as documented) at patient's floor/unit and/or counseling patient: less than 15 minutes Plan of Care Discussed with: patient Internal Medicine: Result - Labs CBC & Chem 7: 11/05/18 03:48 11/05/18 03:48 Labs: Short CBC 11/05/18 Range/Units 03:48 WBC 21.9 H D (4.3-11.1) K/mcL Hgb 13.7 (11.5-15.4) g/dL Hct 40.2 (35.3-44.9) % Plt Count 234 (140-400) K/mcL Neutrophils # 19.8 H (1.6-8.9) K/mcL BMP 11/05/18 03:48 Sodium 137 Potassium 4.0 Chloride 106 Carbon Dioxide 24 BUN 24 H Creatinine 0.97 Glucose 319 H Calcium 9.4 Consult Discharge Plan - Plan Referrals: Vignesh Gustafson MD [Partnered Physician] - 11/16/18 9:45 am (2) Acute asthma exacerbation Qualifiers: Asthma severity: severe Asthma persistence: unspecified Qualified Code(s): J45.901 - Unspecified asthma with (acute) exacerbation (4) Leukocytosis, unspecified Qualifiers: Leukocytosis type: unspecified Qualified Code(s): D72.829 - Elevated white blood cell count, unspecified (5) Acute exacerbation of CHF (congestive heart failure) Qualifiers: Heart failure type: unspecified Qualified Code(s): I50.9 - Heart failure, unspecified
[2018-11-05] MEDS: Acetaminophen 325 MG TABLET PO PRN (16:32)
--- NOTE | 2018-11-05 17:31 | Electrocardiograph Report ---
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
[2018-11-05] MEDS ORDERED: Acetaminophen/Butalbital/CaffeineTABLET PO ONE (20:53)
[2018-11-05] MEDS: Azithromycin 500 MG in D5% in Water 250 ML IVPB SCH (21:35)
[2018-11-05] MEDS: clonazePAM 0.5 MG TABLET PO PRN (21:44)
[2018-11-06 04:10] LABS: Basophils % 0.2 %; Hematocrit 39.8 % (35.3-44.9); Hemoglobin 13.5 g/dL (11.5-15.4); Immature Granulocytes % 1.2 % (0-4); Lymphocytes # 1.4 K/mcL (0.6-4.6); Mean Corpuscular HGB Conc 33.9 g/dL (31.6-35.5); Mean Corpuscular Hemoglobin 28.6 pg (28.0-33.3); Mean Corpuscular Volume 84.3 fL (83.0-100.0); Mean Platelet Volume 9.7 fL (9.4-12.4); Monocytes # 0.4 K/mcL (0.0-1.3); Monocytes % 2.1 %; Neutrophils # 17.4 K/mcL (1.6-8.9); Platelet Count 239 K/mcL (140-400); Red Blood Count 4.72 M/mcL (3.82-4.97); Red Cell Distribution Width 12.6 % (11.5-14.5); Segmented Neutrophils % 89.5 %
[2018-11-06 04:24] LABS: BUN/Creatinine Ratio 32 (6-26); Blood Urea Nitrogen 27 mg/dL (6-20); Calcium 8.8 mg/dL (8.6-10.3); Carbon Dioxide 22 mEq/L (23-29); Chloride 104 mEq/L (98-107); Glucose 344 mg/dL (70-105); Osmolality,Calculated 295 (280-300); Sodium 133 mEq/L (136-145); eGFR For Non-African Americans > 60 (> 60)
[2018-11-06] MEDS: Ipratropium/Albuterol Neb 3 ML IH SCH ×4 (04:49→23:00)
[2018-11-06] MEDS: *HR* Heparin 5,000 UNIT/ML VIAL SQ SCH ×3 (05:05→21:59)
[2018-11-06] MEDS: MethylPREDNISolone 40 MG/ML VIAL IVP SCH ×4 (05:06→23:45)
[2018-11-06] MEDS: Insulin LISPRO 300 UNITS/3 ML VIAL SQ SCH ×4 (08:01→21:17)
[2018-11-06] MEDS: Loratadine 10 MG TABLET PO SCH (08:02)
[2018-11-06] MEDS: Doxycycline 100 MG CAPSULE PO SCH ×2 (08:02→21:19)
[2018-11-06] MEDS: (Umeclidinium Bromide [Incruse Ellipta] 62.5 MCG) IH SCH (08:02)
[2018-11-06] MEDS: Furosemide 40 MG TABLET PO SCH ×2 (08:02→17:36)
[2018-11-06] MEDS: clonazePAM 0.5 MG TABLET PO PRN ×2 (08:06→21:19)
--- NOTE | 2018-11-06 11:44 | Internal Med Progress Note ---
Hospitalist Progress Note - Encounter Date of Encounter: 11/06/18 Time of Encounter: 11:42 - Subjective Interval History: Continues to have dyspnea and wheezing with non productive cough. Wheezing has worsened today and she is more dyspneic with exertion. Not suitable for d/c today with risks for respiratory failure. - Exam Vitals: Temp Pulse Resp BP Pulse Ox 98.2 F 77 18 153/84 91 11/06/18 07:25 11/06/18 07:25 11/06/18 07:25 11/06/18 07:25 11/06/18 07:25 Exam: PHYSICAL EXAMINATION: GENERAL: The patient is an obese female, mild respiratory distress, alert and oriented 3 HEENT: Head is normocephalic and atraumatic. Extraocular muscles are intact. Pupils are equal, round, and reactive to light and accommodation. NECK: Supple. No carotid bruits. No lymphadenopathy or thyromegaly. LUNGS: Diminished throughout with coarse expiratory wheezing, exertional dyspnea when ambulating throughout room, prolonged expiratory phase and conversational dyspnea HEART: Regular rate and rhythm, S1, S2 without murmur. ABDOMEN: Soft, nontender, and nondistended. Positive bowel sounds. No hepatosplenomegaly was noted. EXTREMITIES: Without any cyanosis, clubbing, rash, lesions or edema. NEUROLOGIC: Cranial nerves II through XII are grossly intact. SKIN: No ulceration or induration present. - Assessment and Plan (1) Acute respiratory failure with hypoxemia Current Visit: No Status: Acute Assessment and Plan: dyspnea x 1 week failed outpatient treatment with z-pack and oral steroids on 2-3 L o2 at baseline but mostly at HS Suspect combination of asthma, CHF exacerbation and Viral respiratory infection + Rhinovirus continue nebs, azithromycin, iv steroids, claritin, singulair, and ellipta supplementory O2 PRN BIpap at HS 11/06--Dyspnea with exertion persists today. She appeared to be improving yesterday but today has developed course expiratory wheezing. She remains on 2LNC with SPO2 of 90-91%. With increased wheezing I will increase IV steroid dose today. Continue plan as above. If respiratory status does not improve overnight I will consult pulmonology in the morning. I suspect that she will need a long steroid taper at discharge. She will need close pulmonology follow- up thereafter with frequent exacerbations of restrictive airway disease. (2) Acute asthma exacerbation Current Visit: No Status: Acute Assessment and Plan: Treat as above (3) Obstructive sleep apnea Current Visit: No Status: Chronic Assessment and Plan: Continue BiPAP at night. (4) Leukocytosis, unspecified Current Visit: Yes Status: Acute Assessment and Plan: leukocytosis with neutropenia has been on oral steroids x5 days prior to admission cxr with interstitial edema; no consolidation identified monitor labs daily afebrile and hemodynamically stable, leukosytosis in the setting of viral respiratory infection and prolonged steroid use. (5) Acute exacerbation of CHF (congestive heart failure) Current Visit: Yes Status: Acute Assessment and Plan: Diastolic HF CXR with mild interstitial edema received IV lasix x 1 on admission restart home lasix BID 2 L fluid restriction diet/low sodium diet Continue to monitor I's and O's Continue daily weight Weight remains stable overnight does not appear fluid overloaded on exam - Time Spent with Patient Total time spent is greater than 50% in coordination of care (as documented) at patient's floor/unit and/or counseling patient: less than 15 minutes Plan of Care Discussed with: patient Internal Medicine: Result - Labs CBC & Chem 7: 11/06/18 03:25 11/06/18 03:25 Labs: Short CBC 11/06/18 Range/Units 03:25 WBC 19.5 H (4.3-11.1) K/mcL Hgb 13.5 (11.5-15.4) g/dL Hct 39.8 (35.3-44.9) % Plt Count 239 (140-400) K/mcL Neutrophils # 17.4 H (1.6-8.9) K/mcL BMP 11/06/18 03:25 Sodium 133 L Potassium 4.0 Chloride 104 Carbon Dioxide 22 L BUN 27 H Creatinine 0.84 Glucose 344 H Calcium 8.8 Consult Discharge Plan - Plan Referrals: Vignesh Gustafson MD [Partnered Physician] - 11/16/18 9:45 am (2) Acute asthma exacerbation Qualifiers: Asthma severity: severe Asthma persistence: unspecified Qualified Code(s): J45.901 - Unspecified asthma with (acute) exacerbation (4) Leukocytosis, unspecified Qualifiers: Leukocytosis type: unspecified Qualified Code(s): D72.829 - Elevated white blood cell count, unspecified (5) Acute exacerbation of CHF (congestive heart failure) Qualifiers: Heart failure type: unspecified Qualified Code(s): I50.9 - Heart failure, unspecified
[2018-11-06 12:04] LABS: Magnesium 2.3 mg/dL (1.6-2.6)
[2018-11-06] MEDS: Azithromycin 500 MG in D5% in Water 250 ML IVPB SCH (21:18)
[2018-11-06] MEDS ORDERED: Acetaminophen/Butalbital/CaffeineTABLET PO ONE (21:35)
[2018-11-07] MEDS: Ipratropium/Albuterol Neb 3 ML IH SCH ×2 (04:16→11:34)
[2018-11-07 05:48] LABS: Basophils % 0.3 %; Hematocrit 41.5 % (35.3-44.9); Hemoglobin 14.3 g/dL (11.5-15.4); Immature Granulocytes % 1.5 % (0-4); Lymphocytes # 1.2 K/mcL (0.6-4.6); Lymphocytes % 8.6 %; Mean Corpuscular HGB Conc 34.5 g/dL (31.6-35.5); Mean Corpuscular Hemoglobin 28.7 pg (28.0-33.3); Mean Corpuscular Volume 83.2 fL (83.0-100.0); Mean Platelet Volume 9.8 fL (9.4-12.4); Monocytes # 0.3 K/mcL (0.0-1.3); Monocytes % 2.4 %; Neutrophils # 11.8 K/mcL (1.6-8.9); Platelet Count 255 K/mcL (140-400); Red Blood Count 4.99 M/mcL (3.82-4.97); Red Cell Distribution Width 12.4 % (11.5-14.5); Segmented Neutrophils % 87.2 %
[2018-11-07] MEDS: MethylPREDNISolone 40 MG/ML VIAL IVP SCH (05:58)
[2018-11-07] MEDS: *HR* Heparin 5,000 UNIT/ML VIAL SQ SCH (05:58)
[2018-11-07 06:04] LABS: BUN/Creatinine Ratio 30 (6-26); Blood Urea Nitrogen 28 mg/dL (6-20); Calcium 9.3 mg/dL (8.6-10.3); Carbon Dioxide 25 mEq/L (23-29); Chloride 98 mEq/L (98-107); Glucose 441 mg/dL (70-105); Osmolality,Calculated 301 (280-300); Potassium 3.8 mEq/L (3.5-5.1); Sodium 133 mEq/L (136-145); eGFR For Non-African Americans > 60 (> 60)
[2018-11-07] MEDS: Loratadine 10 MG TABLET PO SCH (08:53)
[2018-11-07] MEDS: Furosemide 40 MG TABLET PO SCH (08:53)
[2018-11-07] MEDS: Doxycycline 100 MG CAPSULE PO SCH (08:53)
[2018-11-07] MEDS: Insulin LISPRO 300 UNITS/3 ML VIAL SQ SCH (08:53)
[2018-11-07] MEDS: (Umeclidinium Bromide [Incruse Ellipta] 62.5 MCG) IH SCH (08:54)
[2018-11-07 12:18] VITALS: BP 137/84
--- NOTE | 2018-11-07 12:20 | Discharge Summary ---
- NOTES TO OUTPATIENT PROVIDER Notes to Outpatient Provider: Acute exacerbation of asthma 2/2 rhinovirus. Patient reports frequent asthma exacerbations. She was given long steroid taper and has been instructed to f/u with PCP in 1-week. Pulmonology request has been made. Date of Encounter: 11/07/18 Time of Encounter: 12:18 - Discharge Diagnosis (1) Acute asthma exacerbation Priority: Primary Status: Acute Assessment and Plan: History of moderate/severe persistent asthma falls with Dr. Douglass Presents with non-his son also like asthma exacerbation secondary to rhinovirus Has approximately 4 or more admissions per year Recently he has seen a knife setter grinder machine on 10/29/18 who recommends no changes to bronchodilator therapy She will discharged home with long steroid taper and azithromycin as instructed to follow-up with PCP and pulmonology Qualifiers: Asthma severity: severe Asthma persistence: unspecified Qualified Code(s): J45.901 - Unspecified asthma with (acute) exacerbation (2) Acute respiratory failure with hypoxemia Priority: Primary Status: Resolved Assessment and Plan: back to baseline 2LNC (3) Obstructive sleep apnea Priority: Secondary Status: Chronic Assessment and Plan: continue cpap at hs at home (4) Leukocytosis, unspecified Priority: Secondary Status: Acute Assessment and Plan: improving Qualifiers: Leukocytosis type: unspecified Qualified Code(s): D72.829 - Elevated white blood cell count, unspecified (5) Acute exacerbation of CHF (congestive heart failure) Priority: Secondary Status: Acute Qualifiers: Heart failure type: unspecified Qualified Code(s): I50.9 - Heart failure, unspecified Hospital course: Ms. Sweet is a 38 year old female who presented with an acute exacerbation of asthma 2/2 rhinovirus. Follows with data pulmonology and appears to have approximately 4 exacerbations of asthma annually per pulmonology notes. She has moderate-severe persistent asthma and has recently seen her knife setter grinder machine on 10/29/18 without changes to bronchodilator therapy. At that time she was in acute asthma exacerbation and was given a long prednisone taper instructed to come to the ED should her symptoms worsen. She arrived at [facility] ED with w orsening symptoms secondary to rhinovirus. She was treated with frequent aerosols, IV steroids and azithromycin and is now back to baseline 2 L nasal cannula. She is being discharged today with a long steroid taper of 60 mg daily 3 days, 40 mg daily 3 days, 20 mg daily 3 days then 10 mg daily 3 days. She is instructed to follow-up with PCP and knife setter grinder machine for further evaluation and monitoring of asthma. Discharge discussed with: patient, nurse - Time Spent with Patient Total time spent providing and/or coordinating discharge services: Less than 30 minutes - Discharge Medications Prescriptions: Azithromycin [Zithromax Tri-Reilly] 500 mg PO DAILY 2 Days #2 tablet predniSONE [PredniSONE] See Taper PO DAILY 12 Days #20 tablet Home Medications: Sertraline [Zoloft] 50 mg PO HS 01/28/16 [History] Albuterol Sulfate [Proair Hfa] 2 puff IH Q6H PRN 05/23/16 [History] clonazePAM [Klonopin] 0.5 mg PO BID PRN 08/08/16 [History] Montelukast [Singulair] 10 mg PO QPM 08/14/17 [History] Iron Ps Complex/B12/Folic Acid [Poly-Iron 150 Forte Capsule] 1 each PO DAILY 12/23/17 [History] Loratadine [Claritin] 10 mg PO DAILY #30 tablet 12/25/17 [Rx] Umeclidinium [place] [Incruse Ellipta] 62.5 mcg IH DAILY 04/17/18 [History] Furosemide [Lasix] 40 mg PO BID 30 Days #60 tablet 08/06/18 [Rx] Albuterol Neb [Proventil Neb] 3 ml IH Q8H PRN 11/04/18 [History] Insulin LISPRO [Admelog] 0 unit SQ TIDWM PRN 11/04/18 [History] Ipratropium Neb [Atrovent Neb] 0.5 mg IH Q4H PRN 11/04/18 [History] Metformin HCl [Metformin HCl ER] 500 mg PO BID 11/04/18 [History] predniSONE [PredniSONE] 20 mg PO AD 11/04/18 [History] Azithromycin [Zithromax Tri-Reilly] 500 mg PO DAILY 2 Days #2 tablet 11/07/18 [Rx] predniSONE [PredniSONE] See Taper PO DAILY 12 Days #20 tablet 11/07/18 [Rx] Allergies/Adverse Reactions: Allergy/AdvReac Type Severity Reaction Status Date / Time levofloxacin [From Levaquin] Allergy Anaphylaxis Verified 11/03/18 16:22 Penicillins [PCN] Allergy Anaphylaxis Verified 11/03/18 16:22 Date of admission: 11/04/18 18:08 Primary care physician: Michael Salazar MD Consults: 11/03/18 19:35 Consult to Nurse Navigator [CONS] Routine Comment: 11/03/18 22:59 Consult to Nurse Navigator [CONS] Routine Comment: Discharging clinician: Josias Ku Anticipated date of discharge: 11/07/18 - Constitutional Vitals: Temp Pulse Resp BP Pulse Ox 97.2 F L 77 13 128/79 94 11/07/18 07:07 11/07/18 07:07 11/07/18 07:07 11/07/18 07:07 11/07/18 07:07 General appearance: Present: A&O X 3 Exam: - - Head Head exam: Present: atraumatic, normocephalic - Eye Eye exam: Present: PERRL, conjuntiva pink, sclera anicteric Pupils: Present: PERRL - Neck Neck exam general surgery: Present: supple, trachea midline. Absent: lymphadenopathy - Respiratory Respiratory exam: Present: decreased breath sounds, CTAB, prolonged expiratory phase. Absent: accessory muscle use, chest wall tenderness, rales, respiratory distress, rhonchi, stridor, wheezes, tachypnea Additional comments: Lungs are clear/diminished throughout with adequate air movement. - Cardiovascular Cardiovascular exam: Present: RRR, +S1, +S2. Absent: diastolic murmur, gallop, rubs, systolic murmur - GI/Abdominal GI/Abdominal exam: Present: normal bowel sounds, soft, no peritoneal signs. Absent: distended, tenderness - Extremities Exam Extremities exam: Present: warm, radial pulses palpable and symmetrical. Absent: calf tenderness, cyanotic, pedal edema - Neurological Exam Neurological exam: Present: CN II-XII intact, oriented X3, no focal deficits. Absent: pronater drift, facial droop, speech deficit - Skin Skin exam: Present: dry, intact - Patient Status Disposition: Home, Self-Care Condition: Good Functional capacity at discharge: independent ambulation Overall status at discharge: patient is progressing back to baseline - Discharge Instructions Instructions: Prednisone (By mouth), Chronic Obstructive Pulmonary Disease (DC), Acute Respiratory Distress Syndrome (DC), Asthma (DC) Follow Up With: [facility] [Provider Group] (Hospital follow up appointment has been requested. Office will call with date and time of appointment. ) Vignesh Gustafson MD [Partnered Physician] - 11/16/18 9:45 am - Diet and Activity Activity: increase activity as tolerated, resume usual activities as tolerated, wear oxygen at all times, wear oxygen at night Diet: diabetic diet, low fat, low cholesterol, low salt diet
== END 2018-11-07 13:20 | disposition home or self-care (01) | DRG 141 ==
LOC: 3BNU 16:12 → EMEROOARM 16:12 → SUATTDRO 19:01 → 3BNU 20:00
PROVIDERS: ADMIT Internal Medicine; ATTEND Internal Medicine